=== PATIENT | female | born 1985 | race Caucasian/White ===

== ENCOUNTER → 2016-09-21 | Outpatient (CLI) | payer OTHER ==
[~2016-09-21] MED LIST: ALBUAER2 INH; BCPILLS PO; FLUT1AER4 INH; LAMO1TAB21 PO; SNG10 PO; VENL75CA73 PO
[2016-09-21 16:08] LABS: URINE APPEARANCE CLEAR (CLEAR); URINE BILIRUBIN NEG (NEG); URINE COLOR YELLOW; URINE NITRITE NEG (NEG); URINE SPECIFIC GRAVITY 1.009 (1.000-1.030); UROBILINOGEN NEG (NEG)
[2016-09-21 16:14] LABS: MANUAL MICROSCOPIC REQUIRED? NO; REVIEW REQ? NO
== END | disposition home or self-care (01) ==
LOC: C.LABSPEC 08:55
PROVIDERS: ATTEND Obstetrics & Gynecology
DX: R39.15 Urgency of urination (principal)

== ENCOUNTER → 2016-09-21 | Outpatient (CLI) | payer OTHER | END | disposition home or self-care (01) | LOC: C.PAPS 16:19 | PROVIDERS: ATTEND Obstetrics & Gynecology | DX: Z12.4 Encounter for screening for malignant neoplasm of cervix (principal) ==

== ENCOUNTER 2023-01-18 11:19 | Inpatient (IN) ==
[2023-01-18 13:46] LABS: Appearance Urine Clear (Clear); Blood Urine Negative (Negative); Color Urine Dark Yellow; Epithelial Cell Urine Auto >30 /lpf (0-5); Glucose Urine UA Negative (Negative); Ketones Urine 2+ (Negative); Leukocyte Esterase Urine Negative (Negative); Nitrite Urine Negative (Negative); Protein Urine Trace (Negative); Specific Gravity Urine 1.044 (1.000-1.030); Urobilinogen Urine Negative (Negative)
[2023-01-18 13:47] LABS: Basophils # (auto) 0.04 K/uL (0.00-0.20); Basophils % (auto) 0.4 %; Eosinophils # (auto) 0.07 K/uL (0.00-0.50); Eosinophils % (auto) 0.7 %; Hematocrit (blood only) 39.8 % (37.0-47.0); Hemoglobin 14.1 g/dl (12.0-16.0); Immature Granulocytes # (auto) 0.23 K/uL (0.01-0.20); Immature Granulocytes % (auto) 2.4 %; Lymphocytes # (auto) 1.44 K/uL (1.20-3.40); Lymphocytes % (auto) 15.3 %; Mean Corpuscular Hemoglobin 30.8 pg (25.0-34.0); Mean Corpuscular Hgb Conc 35.4 g/dL (32.0-36.0); Mean Corpuscular Volume 86.9 fL (80.0-100.0); Mean Platelet Volume 10.5 fL (9.4-12.4); Monocytes # (auto) 1.68 K/uL (0.11-0.59); Monocytes % (auto) 17.8 %; Neutrophils # (auto) 5.97 K/uL (1.40-6.50); Neutrophils % (auto) 63.4 %; Platelet Count 403 K/uL (130-400); RDW Coefficient of Variation 11.6 % (11.5-14.5); RDW Standard Deviation 36.8 fL (36.4-46.3); Red Blood Count 4.58 M/uL (4.20-5.40); White Blood Count 9.43 K/ul (4.8-10.8)
[2023-01-18 13:56] LABS: Bilirubin Urine 2+ (Negative)
[2023-01-18 14:06] LABS: Bacteria Urine Automated 1+ (Negative); RBC Urine Automated 0-4 /hpf (0-4)
[2023-01-18 14:06] LABS: Albumin Globulin Ratio 1.4 (0.9-2); Albumin Level 4.4 gm/dl (3.4-5.0); BUN Creatinine Ratio 17.2 (10-20); Bilirubin,Total 0.9 mg/dl (0.2-1.0); Calcium 9.9 mg/dl (8.6-10.3); Creatinine Clr Calc Pharmacy 88.9 ml/min; Est GFR (African American) 90.4 ml/min; Globulin 3.2 gm/dl (2.5-4.0); Total Protein 7.6 gm/dl (6.0-8.3)
[2023-01-18] MEDS ORDERED: SODIUM CHLORIDE 0.9% 2,000 ML IV ONE (16:29)
[2023-01-18] MEDS ORDERED: PANTOprazole 40 MG in SYRINGE 0 ML IV ONE (17:08)
--- NOTE | 2023-01-18 17:10 | Emergency Department Note ---
Impression & Plan SBO (small bowel obstruction), Abdominal pain, Intractable vomiting ED Provider Note HISTORY OF PRESENT ILLNESS: Patient is a 37-year-old female presenting with abdominal pain and intractable vomiting. Patient reports that she has had symptoms ongoing for the last week. She is seen a week ago in the emergency department and found to have enteritis. She reports that her symptoms have been getting worse. She has generalized abdominal pain, but states that the most intense pain is located in the epigastric region. She states that she has multiple episodes of vomiting a day and has been unable to keep anything down. Denies any diarrhea. She denies any measured fevers at home. Denies any recent sick contact exposure. Denies any recent travel. Denies any history of abdominal surgeries. Denies any dysuria or hematuria. ROS: as above PHYSICAL EXAM: Constitutional: Patient appears in no acute distress. HENT: Head: Normocephalic and atraumatic. Eyes: EOMI, PERRL Mouth/Throat: Mucous membranes moist. Neck: Trachea midline. Neck supple. Cardiovascular: RRR, No murmurs, rubs or gallops. Intact distal pulses. Pulmonary/Chest: No respiratory distress. Breath sounds clear and equal bilaterally. No wheezes or rales. Abdominal: Abdomen soft, no rebound or guarding. Generalized tenderness to palpation. Musculoskeletal: No edema, tenderness or deformity noted. Skin: Warm and dry. No rash, erythema, pallor or cyanosis Psychiatric: Appropriate mood and affect for situation. Neurological: Alert and keenly responsive. CN II-XII grossly intact, moving all extremities equally and fully. MDM: - Vitals signs stable. - History obtained via patient. Patient presents with abdominal pain intractable vomiting. Patient reports she has had continued vomiting over the last week. She is seen in the ER last week and noted to have enteritis on her CT scan. She states symptoms over the last week have been getting progressively worse. She has been unable to tolerate oral intake. Denies any diarrhea. Denies any fevers. Denies any history of abdominal surgeries. - Chronic conditions affecting care: none - Differential diagnoses include, but are not limited to: cholecystitis; gastroenteritis; small bowel obstruction; peptic ulcer disease; pancreatitis - Order placed for continuous cardiac monitoring. At this time, monitor showed rate of 90 bpm with normal sinus rhythm, per my interpretation. - External medical records reviewed. Work-up from patient's visit in the emergency department last week was reviewed. - EKG reviewed by myself showed normal sinus rhythm. Rate tachycardic at 101 bpm. QTc 552. No acute ischemic changes. - Laboratory workup interpreted by myself showed normal WBC; hyponatremia (Na 130); hypokalemia (K 3.0); elevated anion gap (13); normal lipase - UA had bacteria present, but no other significant findings to suggest a UTI. - Biofire negative - CT abdomen/pelvis with IV contrast showed closed-loop small bowel obstruction. - Patient given 2L NS, 40 mg IV protonix and 15 mg IV toradol in ER. Given 4 mg IV zofran for nausea - Discussion was had with oncology social work about patient's case and need for admis jessenia - Hospitalist consulted for admission - [facility] and [facility]. ASSESSMENT AND PLAN: Diagnosis: Abdominal pain; intractable vomiting; small bowel obstruction Plan: Admit Past Med/Surg History Medical History (Updated 01/18/23 @ 20:26 by Javy Cohn DO) No pertinent family history No pertinent past medical history Surgical History (Updated 01/13/23 @ 01:29 by Deon Sheldon MD) No pertinent past surgical history Social History Smoking Status: Never smoker Preferred Language: Malagasy Feels Safe at Home: Yes Allergies Allergies Allergy/AdvReac Type Severity Reaction Status Date / Time theophylline Allergy Unknown UNKNOWN Unverified 03/15/16 00:36 Home Meds Home Medications Medication Instructions Recorded Confirmed Albuterol (Ventolin) 2 puff inhalation Q8 PRN 02/19/14 Rescue/Asthma ##0 Control Pills 1 tab PO DAILY #0 tabs 02/19/14 FLUTICASONE PROPIONATE (INHALA 1 puff inhalation BID ##0 02/19/14 (FLOVENT DISKUS) LAMOTRIGINE 100 mg PO DAILY ##0 02/19/14 Montelukast Sod (Montelukast 10 mg PO DAILY ##0 02/19/14 Sodium) VENLAFAXINE HCL (VENLAFAXINE 75 mg PO DAILY ##0 02/19/14 EXTENDED REL) Previous Rx's Medication Instructions Recorded ondansetron 4 mg disintegrating 4 mg PO Q8H PRN nausea and 01/12/23 tablet vomiting #30 tabs Results & Data (ED) Vital Signs Vital Signs - 24 hr 01/18/23 11:31 01/18/23 13:15 01/18/23 16:44 Temperature 36.3 C L Temperature Source Temporal Artery Scan Pulse Rate 110 H 68 Pulse Rate [Apical] 92 H Pulse Rhythm Regular Pulse Rhythm [Apical] Respiratory Rate 18 18 Respiratory Effort / Characteristics Non-Labored Spontaneous Respiratory Depth Normal Respiratory Pattern Regular Blood Pressure 116/78 Blood Pressure [Right Arm] 146/86 H Blood Pressure Mean 90 Blood Pressure Mean [Right Arm] 106 Blood Pressure Position [Right Arm] Pulse Oximetry 95 98 96 Oxygen Delivery Method Room Air Room Air Sepsis Recent Fever Within 48 Hours No Sepsis New/Unexplained Change in Mental Status N/A Sepsis Action Taken by Nursing No Action Required 01/18/23 19:35 Temperature Temperature Source Pulse Rate Pulse Rate [Apical] 90 Pulse Rhythm Pulse Rhythm [Apical] Regular Respiratory Rate 18 Respiratory Effort / Characteristics Non-Labored Spontaneous Respiratory Depth Normal Respiratory Pattern Regular Blood Pressure Blood Pressure [Right Arm] 146/84 H Blood Pressure Mean Blood Pressure Mean [Right Arm] 104 Blood Pressure Position [Right Arm] Lying Pulse Oximetry 99 Oxygen Delivery Method Room Air Sepsis Recent Fever Within 48 Hours Sepsis New/Unexplained Change in Mental Status Sepsis Action Taken by Nursing Laboratory Data 01/18/23 13:15 01/18/23 13:15 Lab Results 01/18/23 01/18/23 01/18/23 Range/Units 13:08 13:15 13:15 WBC 9.43 (4.8-10.8) K/ul RBC 4.58 (4.20-5.40) M/uL Hgb 14.1 (12.0-16.0) g/dl Hct 39.8 (37.0-47.0) % MCV 86.9 (80.0-100.0) fL MCH 30.8 (25.0-34.0) pg MCHC 35.4 (32.0-36.0) g/dL RDW Std Deviation 36.8 (36.4-46.3) fL RDW Coeff of Devin 11.6 (11.5-14.5) % Plt Count 403 H (130-400) K/uL MPV 10.5 (9.4-12.4) fL Immature Gran % (Auto) 2.4 % Neut % (Auto) 63.4 % Lymph % (Auto) 15.3 % [place] % (Auto) 17.8 % Eos % (Auto) 0.7 % Baso % (Auto) 0.4 % Neut # (Auto) 5.97 (1.40-6.50) K/uL Lymph # (Auto) 1.44 (1.20-3.40) K/uL [place] # (Auto) 1.68 H (0.11-0.59) K/uL Eos # (Auto) 0.07 (0.00-0.50) K/uL Baso # (Auto) 0.04 (0.00-0.20) K/uL Immature Gran # (Auto) 0.23 H (0.01-0.20) K/uL Sodium 130 L (136-145) mmol/L Potassium 3.0 L (3.5-5.1) mmol/L Chloride 82 L (98-107) mmol/L Carbon Dioxide 35 H (21-32) mmol/L Anion Gap 13 H (3-11) BUN 16 (6-23) mg/dl Creatinine 0.93 (0.6-1.2) mg/dl Est Cr Clr Drug Dosing 88.9 ml/min Est GFR ( Amer) 90.4 ml/min Est GFR (Non-Af Amer) 78.0 ml/min BUN/Creatinine Ratio 17.2 (10-20) Glucose 105 H (70-99(Fasting)) mg/dl Calcium 9.9 (8.6-10.3) mg/dl Total Bilirubin 0.9 (0.2-1.0) mg/dl AST 20 (13-39) U/L ALT 11 (7-52) U/L Alkaline Phosphatase 89 (34-104) U/L Total Protein 7.6 (6.0-8.3) gm/dl Albumin 4.4 (3.4-5.0) gm/dl Globulin 3.2 (2.5-4.0) gm/dl Albumin/Globulin Ratio 1.4 (0.9-2) Lipase 45 (11-82) U/L Urine Color Dark Yellow Urine Appearance Clear (Clear) Urine pH 5.0 (4.5-7.5) Ur Specific [place] 1.044 H (1.000-1.030) Urine Protein Trace H (Negative) Urine Glucose (UA) Negative (Negative) Urine Ketones 2+ H (Negative) Urine Blood Negative (Negative) Urine Nitrite Negative (Negative) Urine Bilirubin 2+ H (Negative) Urine Urobilinogen Negative (Negative) Ur Leukocyte Esterase Negative (Negative) Urine WBC (Auto) 1-5 (0-5) /hpf Urine RBC (Auto) 0-4 (0-4) /hpf U Hyaline Cast (Auto) 10-30 H (0-5) /lpf U Epithel Cells (Auto) >30 H (0-5) /lpf Urine Bacteria (Auto) 1+ H (Negative) Granular Casts 1-5 H (0) /lpf Urine Yeast Not Reportable Adenovirus (PCR) (NotDetected) B. pertussis DNA (PCR) (NotDetected) B.parapertussis DNA PCR (NotDetected) C. pneumoniae DNA (PCR) (NotDetected) Coronavirus OC43 (PCR) (NotDetected) Coronavirus HKU1 (PCR) (NotDetected) Coronavirus 229E (PCR) (NotDetected) SARS-CoV-2 (PCR) (NotDetected) Coronavirus NL63 (PCR) (NotDetected) Human Metapneumovir PCR (NotDetected) Influenza Type A (PCR) (NotDetected) Influenza Type B (PCR) (NotDetected) M. pneumoniae (PCR) (NotDetected) Parainfluenza 1 (PCR) (NotDetected) Parainfluenza 2 (PCR) (NotDetected) Parainfluenza 3 (PCR) (NotDetected) Parainfluenza 4 (PCR) (NotDetected) RSV (PCR) (NotDetected) Entero/Rhino (PCR) (NotDetected) 01/18/23 Range/Units Unknown WBC (4.8-10.8) K/ul RBC (4.20-5.40) M/uL Hgb (12.0-16.0) g/dl Hct (37.0-47.0) % MCV (80.0-100.0) fL MCH (25.0-34.0) pg MCHC (32.0-36.0) g/dL RDW Std Deviation (36.4-46.3) fL RDW Coeff of Devin (11.5-14.5) % Plt Count (130-400) K/uL MPV (9.4-12.4) fL Immature Gran % (Auto) % Neut % (Auto) % Lymph % (Auto) % [place] % (Auto) % Eos % (Auto) % Baso % (Auto) % Neut # (Auto) (1.40-6.50) K/uL Lymph # (Auto) (1.20-3.40) K/uL [place] # (Auto) (0.11-0.59) K/uL Eos # (Auto) (0.00-0.50) K/uL Baso # (Auto) (0.00-0.20) K/uL Immature Gran # (Auto) (0.01-0.20) K/uL Sodium (136-145) mmol/L Potassium (3.5-5.1) mmol/L Chloride (98-107) mmol/L Carbon Dioxide (21-32) mmol/L Anion Gap (3-11) BUN (6-23) mg/dl Creatinine (0.6-1.2) mg/dl Est Cr Clr Drug Dosing ml/min Est GFR ( Amer) ml/min Est GFR (Non-Af Amer) ml/min BUN/Creatinine Ratio (10-20) Glucose (70-99(Fasting)) mg/dl Calcium (8.6-10.3) mg/dl Total Bilirubin (0.2-1.0) mg/dl AST (13-39) U/L ALT (7-52) U/L Alkaline Phosphatase (34-104) U/L Total Protein (6.0-8.3) gm/dl Albumin (3.4-5.0) gm/dl Globulin (2.5-4.0) gm/dl Albumin/Globulin Ratio (0.9-2) Lipase (11-82) U/L Urine Color Urine Appearance (Clear) Urine pH (4.5-7.5) Ur Specific [place] (1.000-1.030) Urine Protein (Negative) Urine Glucose (UA) (Negative) Urine Ketones (Negative) Urine Blood (Negative) Urine Nitrite (Negative) Urine Bilirubin (Negative) Urine Urobilinogen (Negative) Ur Leukocyte Esterase (Negative) Urine WBC (Auto) (0-5) /hpf Urine RBC (Auto) (0-4) /hpf U Hyaline Cast (Auto) (0-5) /lpf U Epithel Cells (Auto) (0-5) /lpf Urine Bacteria (Auto) (Negative) Granular Casts (0) /lpf Urine Yeast Adenovirus (PCR) Not Detected (NotDetected) B. pertussis DNA (PCR) Not Detected (NotDetected) B.parapertussis DNA PCR Not Detected (NotDetected) C. pneumoniae DNA (PCR) Not Detected (NotDetected) Coronavirus OC43 (PCR) Not Detected (NotDetected) Coronavirus HKU1 (PCR) Not Detected (NotDetected) Coronavirus 229E (PCR) Not Detected (NotDetected) SARS-CoV-2 (PCR) Not Detected (NotDetected) Coronavirus NL63 (PCR) Not Detected (NotDetected) Human Metapneumovir PCR Not Detected (NotDetected) Influenza Type A (PCR) Not Detected (NotDetected) Influenza Type B (PCR) Not Detected (NotDetected) M. pneumoniae (PCR) Not Detected (NotDetected) Parainfluenza 1 (PCR) Not Detected (NotDetected) Parainfluenza 2 (PCR) Not Detected (NotDetected) Parainfluenza 3 (PCR) Not Detected (NotDetected) Parainfluenza 4 (PCR) Not Detected (NotDetected) RSV (PCR) Not Detected (NotDetected) Entero/Rhino (PCR) Not Detected (NotDetected) Administered Medications Discontinued Medications Sodium Chloride (Nss) 2,000 mls @ 999 mls/hr IV .Q2H1M ONE Stop: 01/18/23 18:29 Last Admin: 01/18/23 16:37 Dose: 999 mls/hr Documented By: NRChance Pantoprazole Sodium 40 mg/ (Syringe) 10 mls @ 5 mls/min IV NOW ONE Stop: 01/18/23 17:09 Last Admin: 01/18/23 17:57 Dose: 5 mls/min Documented By: CAROLINE Ioversol (Optiray 320 100ml) 90 ml IV ONCE ONE Stop: 01/18/23 17:41 Last Admin: 01/18/23 17:40 Dose: 90 ml Documented By: CLEMENT Ketorolac Tromethamine (Ketorolac Tromethamine 15 Mg/Ml Vial) 15 mg IV NOW ONE Stop: 01/18/23 19:48 Last Admin: 01/18/23 20:08 Dose: 15 mg Documented By: DAVID Ondansetron HCl (Ondansetron Inj 2 Mg/Ml 2 Ml Vial) 4 mg IV NOW STA Stop: 01/18/23 19:48 Last Admin: 01/18/23 20:09 Dose: 4 mg Documented By: DAVID Imaging Data Radiologist's Impression: Abdomen/Pelvis CT 01/18/23 17:08 CT abd pelvis IV con only CLINICAL HISTORY: abdominal pain; persistent vomiting TECHNIQUE: Helical axial images of the abdomen and pelvis were obtained and displayed. Automated dose lowering techniques and/or adjustment according to patient size were utilized for this exam. This exam was performed with intravenous contrast. CT DOSE: 990.65 mGy.cm COMPARISON: Comparison is made to CT abdomen pelvis 01/12/2023 FINDINGS: Lower chest: No acute abnormality. Liver: Unremarkable. No focal lesions are seen. Gallbladder and biliary tree: No calcified gallstones. Normal caliber wall. No intra- or extrahepatic biliary ductal dilation. Pancreas: Unremarkable, no focal lesions. Spleen: Unremarkable. Adrenals: Unremarkable. Kidneys and ureters: Unremarkable. Bladder: Limited evaluation due to underdistention. Reproductive organs: Unremarkable. Bowel: A hiatal hernia is seen. Numerous dilated loops of small bowel are seen compatible with small bowel obstruction, measuring up to 45 mm in diameter. Proximal and distal transition points are seen. The colon contains moderate stool burden. The appendix is normal. No pneumatosis intestinalis is seen. Lymph nodes Retroperitoneal: Unremarkable. Pelvic: Unremarkable. Mesenteric: Unremarkable. Peritoneum: Moderate free fluid is seen in the pelvis. Vessels: Unremarkable. Abdominal wall: Unremarkable. Bones: Unremarkable. IMPRESSION: Findings are compatible with closed-loop small bowel obstruction. The colon is not entirely under distended. No evidence of pneumatosis intestinalis or other evidence of bowel ischemia. ACT 112: Negative or not required by law. Electronically signed by: Chace Asif M.D. 01/18/2023 6:24 PM Discharge Plan Visit Data Chief Complaint: Abdominal Pain Stated Complaint: VOMITING,ABD PAIN, ED Provider: Vivian Campos Discharge Problem: SBO (small bowel obstruction), Abdominal pain, Intractable vomiting Forms Stand Alone Forms: [facility] Prescriptions Prescriptions: No Action Albuterol (Ventolin) inhaler 2 puff Inhalation Q8 PRN (Reason: Rescue/Asthma) Qty: 0 Control Pills tablet 1 tab PO DAILY Qty: 0 FLUTICASONE PROPIONATE (INHALA (FLOVENT DISKUS) 250 MCG/BLIST AER 1 puff Inhalation BID Qty: 0 LAMOTRIGINE 100 MG tablet 100 mg PO DAILY Qty: 0 Montelukast Sod (Montelukast Sodium) 10 MG tablet 10 mg PO DAILY Qty: 0 VENLAFAXINE HCL (VENLAFAXINE EXTENDED REL) 75 MG capsule 75 mg PO DAILY Qty: 0 ondansetron 4 mg tablet,disintegrating 4 mg PO Q8H PRN (Reason: nausea and vomiting) Qty: 30 0RF Referrals Referrals: Jerry Steinberg DO [Primary Care Provider] -
[2023-01-18] MEDS ORDERED: OPTIRAY 320 100ml IV ONE (17:40)
[2023-01-18 18:11] LABS: Adenovirus PCR Not Detected (NotDetected); Bordetella parapertussis PCR Not Detected (NotDetected); Bordetella pertussis PCR Not Detected (NotDetected); Chlamydia pneumoniae PCR Not Detected (NotDetected); Coronavirus 229E PCR Not Detected (NotDetected); Coronavirus CoV-2 (COVID19)PCR Not Detected (NotDetected); Coronavirus HKU1 PCR Not Detected (NotDetected); Coronavirus NL63 PCR Not Detected (NotDetected); Coronavirus OC43PCR Not Detected (NotDetected); Human Metapneumovirus PCR Not Detected (NotDetected); Influenza A PCR Not Detected (NotDetected); Influenza B PCR Not Detected (NotDetected); Mycoplasma pneumoniae PCR Not Detected (NotDetected); Parainfluenza Virus 1 PCR Not Detected (NotDetected); Parainfluenza Virus 2 PCR Not Detected (NotDetected); Parainfluenza Virus 3 PCR Not Detected (NotDetected); Parainfluenza Virus 4 PCR Not Detected (NotDetected); Respiratory Syncytial VirusPCR Not Detected (NotDetected); Rhinovirus/Enterovirus PCR Not Detected (NotDetected)
--- NOTE | 2023-01-18 18:25 | CT Scan Report ---
CT abd pelvis IV con only CLINICAL HISTORY: abdominal pain; persistent vomiting TECHNIQUE: Helical axial images of the abdomen and pelvis were obtained and displayed. Automated dose lowering techniques and/or adjustment according to patient size were utilized for this exam. This e xam was performed with intravenous contrast. CT DOSE: 990.65 mGy.cm COMPARISON: Comparison is made to CT abdomen pelvis 01/12/2023 FINDINGS: Lower chest: No acute abnormality. Liver: Unremarkable. No focal lesions are seen. Gallbladder and biliary tree: No calcified gallstones. Normal caliber wall. No intra- or extrahepatic biliary ductal dilation. Pancreas: Unremarkable, no focal lesions. Spleen: Unremarkable. Adrenals: Unremarkable. Kidneys and ureters: Unremarkable. Bladder: Limited evaluation due to underdistention. Reproductive organs: Unremarkable. Bowel: A hiatal hernia is seen. Numerous dilated loops of small bowel are seen compatible with small bowel obstruction, measuring up to 45 mm in diameter. Proximal and distal transition points are seen. The colon contains moderate stool burden. The appendix is normal. No pneumatosis intestinalis is see n. Lymph nodes Retroperitoneal: Unremarkable. Pelvic: Unremarkable. Mesenteric: Unremarkable. Peritoneum: Moderate free fluid is seen in the pelvis. Vessels: Unremarkable. Abdominal wall: Unremarkable. Bones: Unremarkable. IMPRESSION: Findings are compatible with closed-loop small bowel obstruction. The colon is not entirely under dis tended. No evidence of pneumatosis intestinalis or other evidence of bowel ischemia. ACT 112: Negative or not required by law. Electronically signed by: Chace Asif M.D. 01/18/2023 6:24 PM
[2023-01-18] MEDS ORDERED: ONDANSETRON INJ 2 MG/ML 2 ML VIAL IV STA (19:47)
[2023-01-18] MEDS ORDERED: KETOROLAC TROMETHAMINE 15 MG/ML VIAL IV ONE (19:47)
[2023-01-18] MEDS ORDERED: KETOROLAC TROMETHAMINE 15 MG/ML VIAL IV PRN (19:47)
--- NOTE | 2023-01-18 20:15 | History & Physical Report ---
Date of Service January 18, 2023 Assessment & Plan (1) SBO (small bowel obstruction): (2) Asymptomatic bacteriuria: (3) Bipolar 1 disorder: (4) Asthma: Plan #SBO CT demonstrates dilated loops of bowel with proximal and distal transition points NG tube placed, low intermittent wall suction NPO IVF, reglan, zofran Tramadol, morphine Surgery consult #Bipolar Dx continue lamictal, venlafaxine #Asymptomatic Bacteriuria No UTI sxs, no treatment indicated #Asthma continue home meds History of Present Illness Chief Complaint: abdominal pain, intractable vomiting Primary Care Provider: Jerry Steinberg, DO 37 yo female PMHx asthma, ?bipolar presents with one week history of intractable nausea, vomiting, and abdominal pain. Pt was evaluated 01/13/23 at [facility] ED for similar symptoms, CT was negative, diagnosed with enteritis and dc with plan to f/u with PCP. Over the past week she has had fluctuating abdominal pain and constant nausea/vomiting. Unable to tolerate anything PO besides some water. Rates abdominal pain at 4/10 at time of exam. Denies fevers, chills, sick contacts, recent travel, history of abdominal surgeries, dysuria, hematuria. Meds allergies reviewed In ED: CT demonstrates SBO with proximal and distal transition points, hiatal hernia, large amount of stool present, no free air or other signs of strangulation or perforation. Hemodynamically stable, afebrile. Received 2L NSS. No leukocytosis. Found to be hyponatremic, hypochloremic, hypokalemic. Allergies Allergy/AdvReac Type Severity Reaction Status Date / Time theophylline Allergy Unknown UNKNOWN Unverified 03/15/16 00:36 Home Medications Medication Instructions Recorded Confirmed Type Albuterol (Ventolin) 2 puff inhalation Q8 PRN 02/19/14 History Rescue/Asthma ##0 Control Pills 1 tab PO DAILY #0 tabs 02/19/14 History FLUTICASONE PROPIONATE (INHALA 1 puff inhalation BID ##0 02/19/14 History (FLOVENT DISKUS) LAMOTRIGINE 100 mg PO DAILY ##0 02/19/14 History Montelukast Sod (Montelukast 10 mg PO DAILY ##0 02/19/14 History Sodium) VENLAFAXINE HCL (VENLAFAXINE 75 mg PO DAILY ##0 11/19/14 History EXTENDED REL) ondansetron 4 mg disintegrating 4 mg PO Q8H PRN nausea and 01/12/23 Rx tablet vomiting #30 tabs Past Med/Surg History Medical History (Updated 01/18/23 @ 20:26 by Javy Cohn DO) No pertinent family history No pertinent past medical history Surgical History (Updated 01/13/23 @ 01:29 by Deon Sheldon MD) No pertinent past surgical history Social History Smoking Status: Never smoker Preferred Language: Tuval[place] Feels Safe at Home: Yes Review of Systems Review of Systems: reviewed, per HPI Physical Exam Physical Exam: General: NAD, non-toxic in appearance, AA&O x 4, answers questions appropriately and follows commands. Skin: warm, dry, intact HEENT: NC/AT, anicteric sclera, conjunctiva without injection, dry membranes, trachea midline Heart: +S1/S2, regular, no m/r/g Lungs: equal air entry bilaterally, no rales/rhonchi/wheezes Abd: +BS, Soft, non distended, TTP throughout, no masses/organomegaly/ascites Ext: warm, no clubbing/cyanosis or edema Neuro: nonfocal, patient AA&O x 4, speech intact, no facial droop, moving all extremities on command. Results & Data Results & Data Vital Signs (Past 12 Hours) Vital Signs Temp Pulse Pulse Resp BP BP Pulse Ox 01/18/23 19:35 90 18 146/84 H 99 01/18/23 16:44 92 H 18 146/86 H 96 01/18/23 13:15 68 98 01/18/23 11:31 36.3 C L 110 H 18 116/78 95 O2 Del Method 01/18/23 19:35 Room Air 01/18/23 16:44 01/18/23 13:15 Room Air 01/18/23 11:31 Room Air Laboratory Results 01/18/23 01/18/23 01/18/23 Range/Units Unknown 13:15 13:15 WBC 9.43 (4.8-10.8) K/ul RBC 4.58 (4.20-5.40) M/uL Hgb 14.1 (12.0-16.0) g/dl Hct 39.8 (37.0-47.0) % MCV 86.9 (80.0-100.0) fL MCH 30.8 (25.0-34.0) pg MCHC 35.4 (32.0-36.0) g/dL RDW Std Deviation 36.8 (36.4-46.3) fL RDW Coeff of Devin 11.6 (11.5-14.5) % Plt Count 403 H (130-400) K/uL MPV 10.5 (9.4-12.4) fL Immature Gran % (Auto) 2.4 % Neut % (Auto) 63.4 % Lymph % (Auto) 15.3 % [place] % (Auto) 17.8 % Eos % (Auto) 0.7 % Baso % (Auto) 0.4 % Neut # (Auto) 5.97 (1.40-6.50) K/uL Lymph # (Auto) 1.44 (1.20-3.40) K/uL [place] # (Auto) 1.68 H (0.11-0.59) K/uL Eos # (Auto) 0.07 (0.00-0.50) K/uL Baso # (Auto) 0.04 (0.00-0.20) K/uL Immature Gran # (Auto) 0.23 H (0.01-0.20) K/uL Sodium 130 L (136-145) mmol/L Potassium 3.0 L (3.5-5.1) mmol/L Chloride 82 L (98-107) mmol/L Carbon Dioxide 35 H (21-32) mmol/L Anion Gap 13 H (3-11) BUN 16 (6-23) mg/dl Creatinine 0.93 (0.6-1.2) mg/dl Est Cr Clr Drug Dosing 88.9 ml/min Est GFR ( Amer) 90.4 ml/min Est GFR (Non-Af Amer) 78.0 ml/min BUN/Creatinine Ratio 17.2 (10-20) Glucose 105 H (70-99(Fasting)) mg/dl Calcium 9.9 (8.6-10.3) mg/dl Total Bilirubin 0.9 (0.2-1.0) mg/dl AST 20 (13-39) U/L ALT 11 (7-52) U/L Alkaline Phosphatase 89 (34-104) U/L Total Protein 7.6 (6.0-8.3) gm/dl Albumin 4.4 (3.4-5.0) gm/dl Globulin 3.2 (2.5-4.0) gm/dl Albumin/Globulin Ratio 1.4 (0.9-2) Lipase 45 (11-82) U/L Urine Color Urine Appearance (Clear) Urine pH (4.5-7.5) Ur Specific [place] (1.000-1.030) Urine Protein (Negative) Urine Glucose (UA) (Negative) Urine Ketones (Negative) Urine Blood (Negative) Urine Nitrite (Negative) Urine Bilirubin (Negative) Urine Urobilinogen (Negative) Ur Leukocyte Esterase (Negative) Urine WBC (Auto) (0-5) /hpf Urine RBC (Auto) (0-4) /hpf U Hyaline Cast (Auto) (0-5) /lpf U Epithel Cells (Auto) (0-5) /lpf Urine Bacteria (Auto) (Negative) Granular Casts (0) /lpf Urine Yeast Adenovirus (PCR) Not Detected (NotDetected) B. pertussis DNA (PCR) Not Detected (NotDetected) B.parapertussis DNA PCR Not Detected (NotDetected) C. pneumoniae DNA (PCR) Not Detected (NotDetected) Coronavirus OC43 (PCR) Not Detected (NotDetected) Coronavirus HKU1 (PCR) Not Detected (NotDetected) Coronavirus 229E (PCR) Not Detected (NotDetected) SARS-CoV-2 (PCR) Not Detected (NotDetected) Coronavirus NL63 (PCR) Not Detected (NotDetected) Human Metapneumovir PCR Not Detected (NotDetected) Influenza Type A (PCR) Not Detected (NotDetected) Influenza Type B (PCR) Not Detected (NotDetected) M. pneumoniae (PCR) Not Detected (NotDetected) Parainfluenza 1 (PCR) Not Detected (NotDetected) Parainfluenza 2 (PCR) Not Detected (NotDetected) Parainfluenza 3 (PCR) Not Detected (NotDetected) Parainfluenza 4 (PCR) Not Detected (NotDetected) RSV (PCR) Not Detected (NotDetected) Entero/Rhino (PCR) Not Detected (NotDetected) 01/18/23 Range/Units 13:08 WBC (4.8-10.8) K/ul RBC (4.20-5.40) M/uL Hgb (12.0-16.0) g/dl Hct (37.0-47.0) % MCV (80.0-100.0) fL MCH (25.0-34.0) pg MCHC (32.0-36.0) g/dL RDW Std Deviation (36.4-46.3) fL RDW Coeff of Devin (11.5-14.5) % Plt Count (130-400) K/uL MPV (9.4-12.4) fL Immature Gran % (Auto) % Neut % (Auto) % Lymph % (Auto) % [place] % (Auto) % Eos % (Auto) % Baso % (Auto) % Neut # (Auto) (1.40-6.50) K/uL Lymph # (Auto) (1.20-3.40) K/uL [place] # (Auto) (0.11-0.59) K/uL Eos # (Auto) (0.00-0.50) K/uL Baso # (Auto) (0.00-0.20) K/uL Immature Gran # (Auto) (0.01-0.20) K/uL Sodium (136-145) mmol/L Potassium (3.5-5.1) mmol/L Chloride (98-107) mmol/L Carbon Dioxide (21-32) mmol/L Anion Gap (3-11) BUN (6-23) mg/dl Creatinine (0.6-1.2) mg/dl Est Cr Clr Drug Dosing ml/min Est GFR ( Amer) ml/min Est GFR (Non-Af Amer) ml/min BUN/Creatinine Ratio (10-20) Glucose (70-99(Fasting)) mg/dl Calcium (8.6-10.3) mg/dl Total Bilirubin (0.2-1.0) mg/dl AST (13-39) U/L ALT (7-52) U/L Alkaline Phosphatase (34-104) U/L Total Protein (6.0-8.3) gm/dl Albumin (3.4-5.0) gm/dl Globulin (2.5-4.0) gm/dl Albumin/Globulin Ratio (0.9-2) Lipase (11-82) U/L Urine Color Dark Yellow Urine Appearance Clear (Clear) Urine pH 5.0 (4.5-7.5) Ur Specific [place] 1.044 H (1.000-1.030) Urine Protein Trace H (Negative) Urine Glucose (UA) Negative (Negative) Urine Ketones 2+ H (Negative) Urine Blood Negative (Negative) Urine Nitrite Negative (Negative) Urine Bilirubin 2+ H (Negative) Urine Urobilinogen Negative (Negative) Ur Leukocyte Esterase Negative (Negative) Urine WBC (Auto) 1-5 (0-5) /hpf Urine RBC (Auto) 0-4 (0-4) /hpf U Hyaline Cast (Auto) 10-30 H (0-5) /lpf U Epithel Cells (Auto) >30 H (0-5) /lpf Urine Bacteria (Auto) 1+ H (Negative) Granular Casts 1-5 H (0) /lpf Urine Yeast Not Reportable Adenovirus (PCR) (NotDetected) B. pertussis DNA (PCR) (NotDetected) B.parapertussis DNA PCR (NotDetected) C. pneumoniae DNA (PCR) (NotDetected) Coronavirus OC43 (PCR) (NotDetected) Coronavirus HKU1 (PCR) (NotDetected) Coronavirus 229E (PCR) (NotDetected) SARS-CoV-2 (PCR) (NotDetected) Coronavirus NL63 (PCR) (NotDetected) Human Metapneumovir PCR (NotDetected) Influenza Type A (PCR) (NotDetected) Influenza Type B (PCR) (NotDetected) M. pneumoniae (PCR) (NotDetected) Parainfluenza 1 (PCR) (NotDetected) Parainfluenza 2 (PCR) (NotDetected) Parainfluenza 3 (PCR) (NotDetected) Parainfluenza 4 (PCR) (NotDetected) RSV (PCR) (NotDetected) Entero/Rhino (PCR) (NotDetected) Diagnostic Findings CT abd pelvis IV con only CLINICAL HISTORY: abdominal pain; persistent vomiting TECHNIQUE: Helical axial images of the abdomen and pelvis were obtained and displayed. Automated dose lowering techniques and/or adjustment according to patient size were utilized for this exam. This exam was performed with intravenous contrast. CT DOSE: 990.65 mGy.cm COMPARISON: Comparison is made to CT abdomen pelvis 01/12/2023 FINDINGS: Lower chest: No acute abnormality. Liver: Unremarkable. No focal lesions are seen. Gallbladder and biliary tree: No calcified gallstones. Normal caliber wall. No intra- or extrahepatic biliary ductal dilation. Pancreas: Unremarkable, no focal lesions. Spleen: Unremarkable. Adrenals: Unremarkable. Kidneys and ureters: Unremarkable. Bladder: Limited evaluation due to underdistention. Reproductive organs: Unremarkable. Bowel: A hiatal hernia is seen. Numerous dilated loops of small bowel are seen compatible with small bowel obstruction, measuring up to 45 mm in diameter. Proximal and distal transition points are seen. The colon contains moderate stool burden. The appendix is normal. No pneumatosis intestinalis is seen. Lymph nodes Retroperitoneal: Unremarkable. Pelvic: Unremarkable. Mesenteric: Unremarkable. Peritoneum: Moderate free fluid is seen in the pelvis. Vessels: Unremarkable. Abdominal wall: Unremarkable. Bones: Unremarkable. IMPRESSION: Findings are compatible with closed-loop small bowel obstruction. The colon is not entirely under distended. No evidence of pneumatosis intestinalis or other evidence of bowel ischemia. ACT 112: Negative or not required by law. Electronically signed by: Chace Asif M.D. 01/18/2023 6:24 PM Dictated:01/18/231815 Transcribed: 01/18/231815 ECG Additional Comments: EKG with sinus tachycardia at 101bpm, normal axis, WK=002, QRS=80, QTc prolonged at 552. large p-waves suggestive of right atrial enlargement, non-specific ST-T wave changes Supervising Physician Co-Signing Physician Notes Patient seen and examined, chart reviewed, case discussed with Dr. Cohn and I agree with the assessment and plan as documented above. In brief, patient is a 37yo female with history of Bipolar and Asthma presenting with one week of intractable nausea, vomiting and abdominal pain. She was seen in the ER on 01/13/[address] of the abdomen which was NEGATIVE. Likely gastroenteritis - discharged home with supportive care. Has been having ongoing abdominal pain. No history of prior SBOs. No prior abdominal surgeries. No personal or family history of inflammatory bowel disease. She reports passing small amount of stool and flatus but is uncertain of when her last episode occurred. NGT placed in the ER In the ER patient is ill in appearance, awake and oriented x 4, answering questions appropriately, ongoing pain and nausea. Mild hypertension otherwise HD stable Skin - intact, no rash HEENT - NC/AT, PERRL, MMM, neck supple Heart - +S1/S2, regular, no m/r/g Lungs - CTA, no rales/rhonchi/wheezes Abd - +BS, diminished, soft, mild distention, diffusely tender to palpation with voluntary guarding, no rebound Ext - warm, well perfused Labs and images reviewed. Significant for mild elevation of platelets at 403 Rt=073, K=3, Cl=82, HCO3=35, AG=13 UA with SG=1.044, 2+ ketones Assessment/Plan -Admit to medical -Keep NPO, NGT to LIWS -Repeat KUB in AM -Continue hydration with LR at 125mL/hr -Morphine as needed for pain -Zofran as needed for nausea -KUB in the morning -General Surgery consultation appreciated -Continue Venlafaxine and Lamictal for history of Bipolar -Continue Fluticasone, Singulair for h/o asthma -Remainder of plan as above Resident Activity Tracking Resident Involvement: Resident Care Provided Care Provided: Adult Hospital Medicine
[2023-01-18] MEDS ORDERED: LIDOCAINE 2% JELLY 5 ML TUBE EXT ONE ×2 (20:32→20:33)
[2023-01-18] MEDS ORDERED: METOCLOPRAMIDE HCL INJ 5 MG/ML 2 ML VIAL ONE (21:03)
[2023-01-18] MEDS: POTASSIUM ACETATE/NSS 10 MEQ/105 ML BAG IV SCH ×2 (21:06→23:24)
[2023-01-18] MEDS ORDERED: METOCLOPRAMIDE HCL INJ 5 MG/ML 2 ML VIAL IV STA (21:06)
[2023-01-18] MEDS ORDERED: LORazepam 2 MG/1 ML VIAL IV STA (21:07)
[2023-01-18] MEDS ORDERED: OXYMETAZOLINE 0.05% 30 ML BTL STA (21:10)
[2023-01-18] MEDS ORDERED: MoRPHine SULFATE 4 MG/ML 1 ML CARP\\VIAL IV PRN ×2 (21:11→23:07)
[2023-01-18] MEDS ORDERED: SODIUM CHLORIDE 0.9% 1,000 ML IV SCH (21:15)
--- NOTE | 2023-01-18 23:35 | Billing Data ---
Date of Service January 18, 2023 Coding Level of Care Code 32029 INT INP/OBS CARE
[2023-01-19] MEDS: LACTATED RINGER'S 1,000 ML IV SCH ×4 (01:11→22:46)
[2023-01-19] MEDS: ONDANSETRON INJ 2 MG/ML 2 ML VIAL IV PRN ×4 (05:33→18:20)
--- NOTE | 2023-01-19 06:31 | Electrocardiogram Report ---
Test Reason : Blood Pressure : / mmHG Vent. Rate : 101 BPM Atrial Rate : 101 BPM P-R Int : 128 ms QRS Dur : 080 ms QT Int : 426 ms P-R-T Axes : 082 076 048 degrees QTc Int : 552 ms Sinus tachycardia Right atrial enlargement Abnormal ECG No previous ECGs available Confirmed by Lenin Rhoades ([id number]) on 01/19/2023 6:30:52 AM Referred By: Confirmed By:Lenin Rhoades
--- NOTE | 2023-01-19 07:18 | Hospitalist Progress Note ---
Date of Service January 19, 2023 Assessment & Plan (1) SBO (small bowel obstruction): (2) Asymptomatic bacteriuria: (3) Bipolar 1 disorder: (4) Asthma: Plan Noreen Rios is a 37 year-old female with a past medical history including asthma, ?bipolar who presents with one week history of intractable nausea, vomiting, and abdominal pain. Patient was previously evaluated on 01/13/23 at [facility] ED for similar symptoms. CT was negative at that time and patient was diagnosed with enteritis and discharged with plan to follow up with PCP. Small Bowel Obstruction -CT (01/18): demonstrates dilated loops of bowel with proximal and distal transition points -NG tube placed, low intermittent wall suction -NPO, IV maintenance fluids (LR @ 125mL/h) -Analgesia with morphine PRN. Zofran for antiemetics. -Surgery consulted, appreciate recommendations -Suspect possible underlying inflammatory etiology leading to SBO -GI consulted, recommend outpatient endoscopy/colonoscopy Hyponatremia, Hypokalemia -Na of 130, Potassium of 3.0 on admission (repleted with 20mEq) -Likely secondary to poor PO intake and ongoing nausea -Monitor with daily BMP Bipolar Disorder -Continue Lamictal, Venlafaxine Asymptomatic Bacteriuria -No UTI sxs, no treatment indicated Asthma -Continue home Fluticasone, Singulair DVT Prophylaxis: Diet: NPO, IVF Code Status: Full Code Dispo: Med/Surg Admission and Anticipated Discharge Date Admission Date: January 18, 2023 Supervising Physician Co-Signing Physician Notes Resident Physician Supervision Note: I independently interviewed and examined the patient and verified the lynn hist ory and physical, reviewed labs and image studies and agree with resident findings and care plan. Subjective Patient seen and examined at bedside. She is fatigued and nauseated, NG tube in place and draining. She denies any prior abdominal surgeries or prior GI diagnoses. Review of Systems Review of Systems: As per above Physical Exam Constitutional: well developed and well nourished Eyes: + anicteric sclerae; no conjunctival abnormality ENMT: Ears: no external ear abnormality Nose: no external nose abnormality Moist mucous membranes. NG tube in place Respiratory: No increased work of breathing or accessory muscle use Cardiovascular: Extremities: no edema Limbs appear well perfused Gastrointestinal (Abdomen): Inspection/Auscultation: abdomen normal to inspection; abdomen not distended Soft, tender to palpation Skin: no rashes, warm and dry Psychiatric: A+Ox3, euthymic affect Results & Data Results & Data Vital Signs (Past 12 Hours) Vital Signs Temp Pulse Pulse Resp BP Pulse Ox O2 Del Method 01/18/23 22:30 Room Air 01/18/23 22:30 36.6 C 106 H 16 136/85 96 Room Air 01/18/23 22:20 Room Air 01/18/23 19:35 90 18 146/84 H 99 Room Air Diagnostic Findings Abdomen/Pelvis CT 01/18/23 17:08 CT abd pelvis IV con only CLINICAL HISTORY: abdominal pain; persistent vomiting TECHNIQUE: Helical axial images of the abdomen and pelvis were obtained and displayed. Automated dose lowering techniques and/or adjustment according to patient size were utilized for this exam. This exam was performed with intravenous contrast. CT DOSE: 990.65 mGy.cm COMPARISON: Comparison is made to CT abdomen pelvis 01/12/2023 FINDINGS: Lower chest: No acute abnormality. Liver: Unremarkable. No focal lesions are seen. Gallbladder and biliary tree: No calcified gallstones. Normal caliber wall. No intra- or extrahepatic biliary ductal dilation. Pancreas: Unremarkable, no focal lesions. Spleen: Unremarkable. Adrenals: Unremarkable. Kidneys and ureters: Unremarkable. Bladder: Limited evaluation due to underdistention. Reproductive organs: Unremarkable. Bowel: A hiatal hernia is seen. Numerous dilated loops of small bowel are seen compatible with small bowel obstruction, measuring up to 45 mm in diameter. Proximal and distal transition points are seen. The colon contains moderate stool burden. The appendix is normal. No pneumatosis intestinalis is seen. Lymph nodes Retroperitoneal: Unremarkable. Pelvic: Unremarkable. Mesenteric: Unremarkable. Peritoneum: Moderate free fluid is seen in the pelvis. Vessels: Unremarkable. Abdominal wall: Unremarkable. Bones: Unremarkable. IMPRESSION: Findings are compatible with closed-loop small bowel obstruction. The colon is not entirely under distended. No evidence of pneumatosis intestinalis or other evidence of bowel ischemia. ACT 112: Negative or not required by law. Electronically signed by: Chace Asif M.D. 01/18/2023 6:24 PM Resident Activity Tracking Resident Involvement: Resident Care Provided Care Provided: Adult [facility] Medicine
--- NOTE | 2023-01-19 07:49 | XRay Report ---
KUB HISTORY: Confirm NG tube placement COMPARISON: Abdomen and pelvis CT 01/18/2023. FINDINGS: The nasogastric tube terminates in the proximal stomach. The fenestrated line terminates at the distal esophagus. This should be advanced by approximately 5 to 10 cm. The lung bases are clear. Dilated gas-filled loops of small bowel persist consistent with the patient's small bowel obstructio n. Contrast is again noted within the urinary system from the recent CT examination. No renal calcul i. No ureteral calculi. No pneumoperitoneum or pneumatosis. IMPRESSION: 1. The nasogastric tube terminates in the proximal stomach. This should be advanced by approximately 5 to 10 cm. 2. Small bowel structure pattern again noted. ACT 112: Negative or not required by law. Electronically signed by: Darwin Ledesma M.D. 01/19/2023 7:48 AM
[2023-01-19 08:20] LABS: Basophils # (auto) 0.05 K/uL (0.00-0.20); Basophils % (auto) 0.4 %; Eosinophils # (auto) 0.04 K/uL (0.00-0.50); Eosinophils % (auto) 0.4 %; Hematocrit (blood only) 34.7 % (37.0-47.0); Hemoglobin 12.1 g/dl (12.0-16.0); Immature Granulocytes # (auto) 0.28 K/uL (0.01-0.20); Immature Granulocytes % (auto) 2.5 %; Lymphocytes # (auto) 1.27 K/uL (1.20-3.40); Lymphocytes % (auto) 11.3 %; Mean Corpuscular Hemoglobin 30.9 pg (25.0-34.0); Mean Corpuscular Hgb Conc 34.9 g/dL (32.0-36.0); Mean Corpuscular Volume 88.5 fL (80.0-100.0); Mean Platelet Volume 10.2 fL (9.4-12.4); Monocytes # (auto) 1.95 K/uL (0.11-0.59); Monocytes % (auto) 17.4 %; Neutrophils # (auto) 7.62 K/uL (1.40-6.50); Platelet Count 316 K/uL (130-400); RDW Coefficient of Variation 11.7 % (11.5-14.5); RDW Standard Deviation 37.2 fL (36.4-46.3); Red Blood Count 3.92 M/uL (4.20-5.40); White Blood Count 11.21 K/ul (4.8-10.8)
--- NOTE | 2023-01-19 08:46 | Surgery Consultation ---
Date of Consultation January 19, 2023 Assessment & Plan (1) SBO (small bowel obstruction): (2) Abdominal pain: Plan 37 year-old female with history of no prior abdominal surgeries or bowel obstructions initially presented to emergency room last week with nausea, vomiting and diarrhea. CT scan at that time showed enteritis. She was having persistent nausea and vomiting at home with decreased oral intake and abdominal pain. repeat CT scan showing SBO with concern for possible closed loop obstruction. Reviewed CT scan images with Dr. Ledesma this morning, looks suspicious for possible inflammatory bowel disease causing SBO vs very bad enteritis. Plan: No acute surgical intervention required at this time Would consult gastroenterology as there may be concern for inflammatory bowel disease as cause of SBO NGT needs advanced per initial and this mornings KUB, advance 10 cm Continue antiemetics and pain management continue medical management will follow along Dr. Mccauley has seen and examined patient, agrees with above. Supervising Physician Co-Signing Physician Notes I have seen and examined the patient directly and agree with the above assessment and plan. Diffuse moderate tenderness to palpation in abdomen. NGT needs to be advanced. Read the scans in Radiology with Dr. Ledesma - does not appear to be closed loop obstruction, but does appear to be obstruction due to distal small bowel enteritis, possible IBD/Crohns. recommend GI consult, medical management. Will continue to follow. History of Present Illness Reason for Consultation: SBO Requesting Physician: Javy Cohn DO Attending Physician: Vanita Vasquez MD History of Present Illness Noreen is a 37 year-old female with history of asthma, bipolar 1 disorder, and asymptomatic bacteriuria who initially presented to ED with complaint of nausea, vomiting, and diarrhea on 01/13/2023 and was found to have enteritis and discharged home. She presented back to emergency department yesterday due to persistent nausea and vomiting with inability to keep anything down with abdominal pain. She had repeat CT scan of abdomen and pelvis which was showing SBO at two points concerning for possible closed loop obstruction. She denies of any recent travels, sick contacts, eating uncooked food, or history of similar symptoms. No prior abdominal surgeries. Denies family history of inflammatory bowel disease. Denies of any history of generalized abdominal pain, diarrhea, changes in bowel habits, or blood in stools. She currently states she is still nauseated and having feculent vomiting. She is passing a little bit of gas. Allergies Allergy/AdvReac Type Severity Reaction Status Date / Time theophylline Allergy Unknown UNKNOWN Unverified 03/15/16 00:36 Home Medications Medication Instructions Recorded Confirmed Type Albuterol (Ventolin) 2 puff inhalation Q8 PRN 02/19/14 History Rescue/Asthma ##0 Control Pills 1 tab PO DAILY #0 tabs 02/19/14 History FLUTICASONE PROPIONATE (INHALA 1 puff inhalation BID ##0 02/19/14 History (FLOVENT DISKUS) LAMOTRIGINE 100 mg PO DAILY ##0 02/19/14 History Montelukast Sod (Montelukast 10 mg PO DAILY ##0 02/19/14 History Sodium) VENLAFAXINE HCL (VENLAFAXINE 75 mg PO DAILY ##0 02/19/14 History EXTENDED REL) ondansetron 4 mg disintegrating 4 mg PO Q8H PRN nausea and 01/12/23 Rx tablet vomiting #30 tabs Patient History Medical History No pertinent family history No pertinent past medical history Surgical History No pertinent past surgical history Social History Smoking Status: Never smoker Hx Alcohol Use: Yes (pt no longer drinks) Hx Substance Use: No Preferred Language: Italian Communication Ability: Effective Pantograph Engraver Required: No Beliefs That Will Affect Care: None Current Living Situation: Spouse Current Living Situation Comment: split level, 15 stairs to upper level Feels Safe at Home: Yes Safety Concerns: Feels Safe At This Time Assistive Devices: None Review of Systems Review of Systems: All systems reviewed & are unremarkable except as noted in HPI & below Physical Exam Constitutional: WD/WN, vitals as above no acute distress, not ill appearing, + uncomfortable and not in distress currently uncomfortable due to nausea and active vomiting Respiratory: normal respiratory effort; no respiratory distress and no labored breathing Gastrointestinal (Abdomen): Inspection/Auscultation: abdomen normal to inspection; abdomen not distended Percussion/Palpation: + abdomen tender (generalized) and abdomen soft; no guarding, abdomen not rigid and abdomen not firm NGT with brown/feculent output Skin: no rashes, warm and dry Psychiatric: Orientation: alert and oriented x 3 Results & Data Vital Signs (Past 12 Hours) Vital Signs Temp Pulse Resp BP Pulse Ox O2 Del Method 01/19/23 07:32 37.0 C 90 17 135/85 96 Room Air 01/18/23 22:30 Room Air 01/18/23 22:30 36.6 C 106 H 16 136/85 96 Room Air 01/18/23 22:20 Room Air Laboratory Results 01/19/23 01/19/23 01/18/23 Range/Units 07:56 07:56 Unknown WBC 11.21 H (4.8-10.8) K/ul RBC 3.92 L (4.20-5.40) M/uL Hgb 12.1 (12.0-16.0) g/dl Hct 34.7 L (37.0-47.0) % MCV 88.5 (80.0-100.0) fL MCH 30.9 (25.0-34.0) pg MCHC 34.9 (32.0-36.0) g/dL RDW Std Deviation 37.2 (36.4-46.3) fL RDW Coeff of Devin 11.7 (11.5-14.5) % Plt Count 316 (130-400) K/uL MPV 10.2 (9.4-12.4) fL Immature Gran % (Auto) 2.5 % Neut % (Auto) 68.0 % Lymph % (Auto) 11.3 % Andrews % (Auto) 17.4 % Eos % (Auto) 0.4 % Baso % (Auto) 0.4 % Neut # (Auto) 7.62 H (1.40-6.50) K/uL Lymph # (Auto) 1.27 (1.20-3.40) K/uL Andrews # (Auto) 1.95 H (0.11-0.59) K/uL Eos # (Auto) 0.04 (0.00-0.50) K/uL Baso # (Auto) 0.05 (0.00-0.20) K/uL Immature Gran # (Auto) 0.28 H (0.01-0.20) K/uL Sodium Pending (136-145) mmol/L Potassium Pending (3.5-5.1) mmol/L Chloride Pending (98-107) mmol/L Carbon Dioxide Pending (21-32) mmol/L Anion Gap Pending (3-11) BUN Pending (6-23) mg/dl Creatinine Pending (0.6-1.2) mg/dl Est Cr Clr Drug Dosing Pending ml/min Est GFR ( Amer) Pending ml/min Est GFR (Non-Af Amer) Pending ml/min BUN/Creatinine Ratio Pending (10-20) Glucose Pending (70-99(Fasting)) mg/dl Calcium Pending (8.6-10.3) mg/dl Total Bilirubin Pending (0.2-1.0) mg/dl AST Pending (13-39) U/L ALT Pending (7-52) U/L Alkaline Phosphatase Pending (34-104) U/L Total Protein Pending (6.0-8.3) gm/dl Albumin Pending (3.4-5.0) gm/dl Globulin Pending (2.5-4.0) gm/dl Albumin/Globulin Ratio Pending (0.9-2) Lipase (11-82) U/L Urine Color Urine Appearance (Clear) Urine pH (4.5-7.5) Ur Specific [place] (1.000-1.030) Urine Protein (Negative) Urine Glucose (UA) (Negative) Urine Ketones (Negative) Urine Blood (Negative) Urine Nitrite (Negative) Urine Bilirubin (Negative) Urine Urobilinogen (Negative) Ur Leukocyte Esterase (Negative) Urine WBC (Auto) (0-5) /hpf Urine RBC (Auto) (0-4) /hpf U Hyaline Cast (Auto) (0-5) /lpf U Epithel Cells (Auto) (0-5) /lpf Urine Bacteria (Auto) (Negative) Granular Casts (0) /lpf Urine Yeast Adenovirus (PCR) Not Detected (NotDetected) B. pertussis DNA (PCR) Not Detected (NotDetected) B.parapertussis DNA PCR Not Detected (NotDetected) C. pneumoniae DNA (PCR) Not Detected (NotDetected) Coronavirus OC43 (PCR) Not Detected (NotDetected) Coronavirus HKU1 (PCR) Not Detected (NotDetected) Coronavirus 229E (PCR) Not Detected (NotDetected) SARS-CoV-2 (PCR) Not Detected (NotDetected) Coronavirus NL63 (PCR) Not Detected (NotDetected) Human Metapneumovir PCR Not Detected (NotDetected) Influenza Type A (PCR) Not Detected (NotDetected) Influenza Type B (PCR) Not Detected (NotDetected) M. pneumoniae (PCR) Not Detected (NotDetected) Parainfluenza 1 (PCR) Not Detected (NotDetected) Parainfluenza 2 (PCR) Not Detected (NotDetected) Parainfluenza 3 (PCR) Not Detected (NotDetected) Parainfluenza 4 (PCR) Not Detected (NotDetected) RSV (PCR) Not Detected (NotDetected) Entero/Rhino (PCR) Not Detected (NotDetected) 01/18/23 01/18/23 01/18/23 Range/Units 13:15 13:15 13:08 WBC 9.43 (4.8-10.8) K/ul RBC 4.58 (4.20-5.40) M/uL Hgb 14.1 (12.0-16.0) g/dl Hct 39.8 (37.0-47.0) % MCV 86.9 (80.0-100.0) fL MCH 30.8 (25.0-34.0) pg MCHC 35.4 (32.0-36.0) g/dL RDW Std Deviation 36.8 (36.4-46.3) fL RDW Coeff of Devin 11.6 (11.5-14.5) % Plt Count 403 H (130-400) K/uL MPV 10.5 (9.4-12.4) fL Immature Gran % (Auto) 2.4 % Neut % (Auto) 63.4 % Lymph % (Auto) 15.3 % Andrews % (Auto) 17.8 % Eos % (Auto) 0.7 % Baso % (Auto) 0.4 % Neut # (Auto) 5.97 (1.40-6.50) K/uL Lymph # (Auto) 1.44 (1.20-3.40) K/uL Andrews # (Auto) 1.68 H (0.11-0.59) K/uL Eos # (Auto) 0.07 (0.00-0.50) K/uL Baso # (Auto) 0.04 (0.00-0.20) K/uL Immature Gran # (Auto) 0.23 H (0.01-0.20) K/uL Sodium 130 L (136-145) mmol/L Potassium 3.0 L (3.5-5.1) mmol/L Chloride 82 L (98-107) mmol/L Carbon Dioxide 35 H (21-32) mmol/L Anion Gap 13 H (3-11) BUN 16 (6-23) mg/dl Creatinine 0.93 (0.6-1.2) mg/dl Est Cr Clr Drug Dosing 88.9 ml/min Est GFR ( Amer) 90.4 ml/min Est GFR (Non-Af Amer) 78.0 ml/min BUN/Creatinine Ratio 17.2 (10-20) Glucose 105 H (70-99(Fasting)) mg/dl Calcium 9.9 (8.6-10.3) mg/dl Total Bilirubin 0.9 (0.2-1.0) mg/dl AST 20 (13-39) U/L ALT 11 (7-52) U/L Alkaline Phosphatase 89 (34-104) U/L Total Protein 7.6 (6.0-8.3) gm/dl Albumin 4.4 (3.4-5.0) gm/dl Globulin 3.2 (2.5-4.0) gm/dl Albumin/Globulin Ratio 1.4 (0.9-2) Lipase 45 (11-82) U/L Urine Color Dark Yellow Urine Appearance Clear (Clear) Urine pH 5.0 (4.5-7.5) Ur Specific [place] 1.044 H (1.000-1.030) Urine Protein Trace H (Negative) Urine Glucose (UA) Negative (Negative) Urine Ketones 2+ H (Negative) Urine Blood Negative (Negative) Urine Nitrite Negative (Negative) Urine Bilirubin 2+ H (Negative) Urine Urobilinogen Negative (Negative) Ur Leukocyte Esterase Negative (Negative) Urine WBC (Auto) 1-5 (0-5) /hpf Urine RBC (Auto) 0-4 (0-4) /hpf U Hyaline Cast (Auto) 10-30 H (0-5) /lpf U Epithel Cells (Auto) >30 H (0-5) /lpf Urine Bacteria (Auto) 1+ H (Negative) Granular Casts 1-5 H (0) /lpf Urine Yeast Not Reportable Adenovirus (PCR) (NotDetected) B. pertussis DNA (PCR) (NotDetected) B.parapertussis DNA PCR (NotDetected) C. pneumoniae DNA (PCR) (NotDetected) Coronavirus OC43 (PCR) (NotDetected) Coronavirus HKU1 (PCR) (NotDetected) Coronavirus 229E (PCR) (NotDetected) SARS-CoV-2 (PCR) (NotDetected) Coronavirus NL63 (PCR) (NotDetected) Human Metapneumovir PCR (NotDetected) Influenza Type A (PCR) (NotDetected) Influenza Type B (PCR) (NotDetected) M. pneumoniae (PCR) (NotDetected) Parainfluenza 1 (PCR) (NotDetected) Parainfluenza 2 (PCR) (NotDetected) Parainfluenza 3 (PCR) (NotDetected) Parainfluenza 4 (PCR) (NotDetected) RSV (PCR) (NotDetected) Entero/Rhino (PCR) (NotDetected) Diagnostic Findings CT abd pelvis IV con only CLINICAL HISTORY: abdominal pain; persistent vomiting TECHNIQUE: Helical axial images of the abdomen and pelvis were obtained and displayed. Automated dose lowering techniques and/or adjustment according to patient size were utilized for this exam. This exam was performed with intravenous contrast. CT DOSE: 990.65 mGy.cm COMPARISON: Comparison is made to CT abdomen pelvis 01/12/2023 FINDINGS: Lower chest: No acute abnormality. Liver: Unremarkable. No focal lesions are seen. Gallbladder and biliary tree: No calcified gallstones. Normal caliber wall. No intra- or extrahepatic biliary ductal dilation. Pancreas: Unremarkable, no focal lesions. Spleen: Unremarkable. Adrenals: Unremarkable. Kidneys and ureters: Unremarkable. Bladder: Limited evaluation due to underdistention. Reproductive organs: Unremarkable. Bowel: A hiatal hernia is seen. Numerous dilated loops of small bowel are seen compatible with small bowel obstruction, measuring up to 45 mm in diameter. Proximal and distal transition points are seen. The colon contains moderate stool burden. The appendix is normal. No pneumatosis intestinalis is seen. Lymph nodes Retroperitoneal: Unremarkable. Pelvic: Unremarkable. Mesenteric: Unremarkable. Peritoneum: Moderate free fluid is seen in the pelvis. Vessels: Unremarkable. Abdominal wall: Unremarkable. Bones: Unremarkable. IMPRESSION: Findings are compatible with closed-loop small bowel obstruction. The colon is not entirely under distended. No evidence of pneumatosis intestinalis or other evidence of bowel ischemia. (2) Abdominal pain Abdominal location: unspecified location Qualified Code(s): R10.9 - Unspecified abdominal pain
[2023-01-19] MEDS ORDERED: INFLUENZA VIRUS QUADRIVALENT VACCINE (IIV4) 0.5 ML SYR IM ONE (09:00)
[2023-01-19 09:01] LABS: Albumin Globulin Ratio 1.6 (0.9-2); Albumin Level 3.6 gm/dl (3.4-5.0); Bilirubin,Total 0.6 mg/dl (0.2-1.0); Calcium 8.4 mg/dl (8.6-10.3); Creatinine Clr Calc Pharmacy 133.1 ml/min; Est GFR (African American) 131.9 ml/min; Est GFR (Non-African American) 113.8 ml/min; Globulin 2.2 gm/dl (2.5-4.0); Potassium 3.4 mmol/L (3.5-5.1); Total Protein 5.8 gm/dl (6.0-8.3)
--- NOTE | 2023-01-19 10:19 | Gastrointestinal Consultation ---
Date of Consultation January 19, 2023 Assessment & Plan (1) Abdominal pain: (2) SBO (small bowel obstruction): Plan Patient is a 37 y.o. female with a history of viral gastroenteritis admitted with abdominal pain and feculent emesis and CT consistent with small bowel obstruction. -NPO with NG to LIW suction. -Recommendations per general surgery. -Outpatient EGD and colonoscopy to exclude any underlying GI pathology. -Continue supportive care. Thank you for allowing us to participate in the care of this patient. If you have any questions or concerns, please do not hesitate to contact us. Supervising Physician Co-Signing Physician Notes I saw the patient and agree with the findings as documented by KRISH Borges History of Present Illness Reason for Consultation: SBO Requesting Physician: Dr. Vasquez Attending Physician: Vanita Vasquez MD History of Present Illness Patient is a 37 y.o. female with a history of asthma, bipolar disorder and recent ER visit for gastroenteritis admitted with intractable nausea with vomiting, feculent in nature and severe abdominal pain/distention. CT imaging obtained consistent with a small bowel obstruction with transition points of both proximal and distal bowel, measuring 45 mm. She has been made NPO with NG insertion to LIW suction. Since placement, she reports improved abdominal pain and bloating. Did have a liquid brown emesis approximately one hour ago. States she is passing flatus but no bms. No f/c. Denies any history of NSAID use. No family history of IBD. No prior abdominal surgeries. General surgery has been consulted as well. Allergies Allergy/AdvReac Type Severity Reaction Status Date / Time theophylline Allergy Unknown UNKNOWN Unverified 03/15/16 00:36 Home Medications Medication Instructions Recorded Confirmed Type Albuterol (Ventolin) 2 puff inhalation Q8 PRN 02/19/14 History Rescue/Asthma ##0 Control Pills 1 tab PO DAILY #0 tabs 02/19/14 History FLUTICASONE PROPIONATE (INHALA 1 puff inhalation BID ##0 02/19/14 History (FLOVENT DISKUS) LAMOTRIGINE 100 mg PO DAILY ##0 02/19/14 History Montelukast Sod (Montelukast 10 mg PO DAILY ##0 02/19/14 History Sodium) VENLAFAXINE HCL (VENLAFAXINE 75 mg PO DAILY ##0 02/19/14 History EXTENDED REL) ondansetron 4 mg disintegrating 4 mg PO Q8H PRN nausea and 01/12/23 Rx tablet vomiting #30 tabs Patient History Medical History No pertinent family history No pertinent past medical history Surgical History No pertinent past surgical history Social History Smoking Status: Never smoker Hx Alcohol Use: Yes (pt no longer drinks) Hx Substance Use: No Preferred Language: Hong Konger Communication Ability: Effective Cargo Service Agent Required: No Beliefs That Will Affect Care: None Current Living Situation: Spouse Current Living Situation Comment: split level, 15 stairs to upper level Feels Safe at Home: Yes Safety Concerns: Feels Safe At This Time Assistive Devices: None Review of Systems Constitutional: as per Subjective / HPI Respiratory: no problem reported Cardiovascular: no problem reported Gastrointestinal: as per Subjective / HPI Physical Exam Constitutional: WD/WN, vitals as above Eyes: EOM intact bilaterally Respiratory: normal respiratory effort, lungs clear to auscultation Cardiovascular: Rate/Rhythm: regular rate and regular rhythm Heart Sounds: no gallop and no murmur Gastrointestinal (Abdomen): Inspection/Auscultation: + abdomen distended and + hypoactive bowel sounds Percussion/Palpation: + abdomen tender and abdomen soft; no guarding and abdomen not rigid Musculoskeletal: Extremities: no cyanosis no lower extremity edema Skin: no rashes, warm and dry Neurologic: moves all extremities Psychiatric: A+Ox3, euthymic affect Results & Data Vital Signs (Past 12 Hours) Vital Signs Temp Pulse Resp BP Pulse Ox O2 Del Method 01/19/23 07:32 37.0 C 90 17 135/85 96 Room Air 01/18/23 22:30 Room Air 01/18/23 22:30 36.6 C 106 H 16 136/85 96 Room Air 01/18/23 22:20 Room Air Diagnostic Findings Laboratory Results WBC 11.21 K/ul (4.8-10.8) H 01/19/23 07:56 RBC 3.92 M/uL (4.20-5.40) L 01/19/23 07:56 Hgb 12.1 g/dl (12.0-16.0) 01/19/23 07:56 Hct 34.7 % (37.0-47.0) L 01/19/23 07:56 MCV 88.5 fL (80.0-100.0) 01/19/23 07:56 MCH 30.9 pg (25.0-34.0) 01/19/23 07:56 MCHC 34.9 g/dL (32.0-36.0) 01/19/23 07:56 RDW Std Deviation 37.2 fL (36.4-46.3) 01/19/23 07:56 RDW Coeff of Devin 11.7 % (11.5-14.5) 01/19/23 07:56 Plt Count 316 K/uL (130-400) 01/19/23 07:56 MPV 10.2 fL (9.4-12.4) 01/19/23 07:56 Immature Gran % (Auto) 2.5 % 01/19/23 07:56 Neut % (Auto) 68.0 % 01/19/23 07:56 Lymph % (Auto) 11.3 % 01/19/23 07:56 [place] % (Auto) 17.4 % 01/19/23 07:56 Eos % (Auto) 0.4 % 01/19/23 07:56 Baso % (Auto) 0.4 % 01/19/23 07:56 Neut # (Auto) 7.62 K/uL (1.40-6.50) H 01/19/23 07:56 Lymph # (Auto) 1.27 K/uL (1.20-3.40) 01/19/23 07:56 [place] # (Auto) 1.95 K/uL (0.11-0.59) H 01/19/23 07:56 Eos # (Auto) 0.04 K/uL (0.00-0.50) 01/19/23 07:56 Baso # (Auto) 0.05 K/uL (0.00-0.20) 01/19/23 07:56 Immature Gran # (Auto) 0.28 K/uL (0.01-0.20) H 01/19/23 07:56 Sodium 135 mmol/L (136-145) L 01/19/23 07:56 Potassium 3.4 mmol/L (3.5-5.1) L 01/19/23 07:56 Chloride 94 mmol/L (98-107) L 01/19/23 07:56 Carbon Dioxide 31 mmol/L (21-32) 01/19/23 07:56 Anion Gap 10 (3-11) 01/19/23 07:56 BUN 12 mg/dl (6-23) 01/19/23 07:56 Creatinine 0.63 mg/dl (0.6-1.2) D 01/19/23 07:56 Est Cr Clr Drug Dosing 133.1 ml/min 01/19/23 07:56 Est GFR ( Amer) 131.9 ml/min 01/19/23 07:56 Est GFR (Non-Af Amer) 113.8 ml/min 01/19/23 07:56 BUN/Creatinine Ratio 19.0 (10-20) 01/19/23 07:56 Glucose 96 mg/dl (70-99(Fasting)) 01/19/23 07:56 Calcium 8.4 mg/dl (8.6-10.3) L 01/19/23 07:56 Total Bilirubin 0.6 mg/dl (0.2-1.0) 01/19/23 07:56 AST 30 U/L (13-39) 01/19/23 07:56 ALT 20 U/L (7-52) 01/19/23 07:56 Alkaline Phosphatase 66 U/L (34-104) 01/19/23 07:56 Total Protein 5.8 gm/dl (6.0-8.3) L D 01/19/23 07:56 Albumin 3.6 gm/dl (3.4-5.0) 01/19/23 07:56 Globulin 2.2 gm/dl (2.5-4.0) L 01/19/23 07:56 Albumin/Globulin Ratio 1.6 (0.9-2) 01/19/23 07:56 Lipase 45 U/L (11-82) 01/18/23 13:15 Urine Color Dark Yellow 01/18/23 13:08 Urine Appearance Clear (Clear) 01/18/23 13:08 Urine pH 5.0 (4.5-7.5) 01/18/23 13:08 Ur Specific [place] 1.044 (1.000-1.030) H 01/18/23 13:08 Urine Protein Trace (Negative) H 01/18/23 13:08 Urine Glucose (UA) Negative (Negative) 01/18/23 13:08 Urine Ketones 2+ (Negative) H 01/18/23 13:08 Urine Blood Negative (Negative) 01/18/23 13:08 Urine Nitrite Negative (Negative) 01/18/23 13:08 Urine Bilirubin 2+ (Negative) H 01/18/23 13:08 Urine Urobilinogen Negative (Negative) 01/18/23 13:08 Ur Leukocyte Esterase Negative (Negative) 01/18/23 13:08 Urine WBC (Auto) 1-5 /hpf (0-5) 01/18/23 13:08 Urine RBC (Auto) 0-4 /hpf (0-4) 01/18/23 13:08 U Hyaline Cast (Auto) 10-30 /lpf (0-5) H 01/18/23 13:08 U Epithel Cells (Auto) >30 /lpf (0-5) H 01/18/23 13:08 Urine Bacteria (Auto) 1+ (Negative) H 01/18/23 13:08 Granular Casts 1-5 /lpf (0) H 01/18/23 13:08 Urine Yeast Not Reportable 01/18/23 13:08 Adenovirus (PCR) Not Detected (NotDetected) 01/18/23 Unknown B. pertussis DNA (PCR) Not Detected (NotDetected) 01/18/23 Unknown B.parapertussis DNA PCR Not Detected (NotDetected) 01/18/23 Unknown C. pneumoniae DNA (PCR) Not Detected (NotDetected) 01/18/23 Unknown Coronavirus OC43 (PCR) Not Detected (NotDetected) 01/18/23 Unknown Coronavirus HKU1 (PCR) Not Detected (NotDetected) 01/18/23 Unknown Coronavirus 229E (PCR) Not Detected (NotDetected) 01/18/23 Unknown SARS-CoV-2 (PCR) Not Detected (NotDetected) 01/18/23 Unknown Coronavirus NL63 (PCR) Not Detected (NotDetected) 01/18/23 Unknown Human Metapneumovir PCR Not Detected (NotDetected) 01/18/23 Unknown Influenza Type A (PCR) Not Detected (NotDetected) 01/18/23 Unknown Influenza Type B (PCR) Not Detected (NotDetected) 01/18/23 Unknown M. pneumoniae (PCR) Not Detected (NotDetected) 01/18/23 Unknown Parainfluenza 1 (PCR) Not Detected (NotDetected) 01/18/23 Unknown Parainfluenza 2 (PCR) Not Detected (NotDetected) 01/18/23 Unknown Parainfluenza 3 (PCR) Not Detected (NotDetected) 01/18/23 Unknown Parainfluenza 4 (PCR) Not Detected (NotDetected) 01/18/23 Unknown RSV (PCR) Not Detected (NotDetected) 01/18/23 Unknown Entero/Rhino (PCR) Not Detected (NotDetected) 01/18/23 Unknown Impressions Abdomen/Pelvis CT 01/18/23 17:08 CT abd pelvis IV con only CLINICAL HISTORY: abdominal pain; persistent vomiting TECHNIQUE: Helical axial images of the abdomen and pelvis were obtained and displayed. Automated dose lowering techniques and/or adjustment according to patient size were utilized for this exam. This exam was performed with intravenous contrast. CT DOSE: 990.65 mGy.cm COMPARISON: Comparison is made to CT abdomen pelvis 01/12/2023 FINDINGS: Lower chest: No acute abnormality. Liver: Unremarkable. No focal lesions are seen. Gallbladder and biliary tree: No calcified gallstones. Normal caliber wall. No intra- or extrahepatic biliary ductal dilation. Pancreas: Unremarkable, no focal lesions. Spleen: Unremarkable. Adrenals: Unremarkable. Kidneys and ureters: Unremarkable. Bladder: Limited evaluation due to underdistention. Reproductive organs: Unremarkable. Bowel: A hiatal hernia is seen. Numerous dilated loops of small bowel are seen compatible with small bowel obstruction, measuring up to 45 mm in diameter. Proximal and distal transition points are seen. The colon contains moderate stool burden. The appendix is normal. No pneumatosis intestinalis is seen. Lymph nodes Retroperitoneal: Unremarkable. Pelvic: Unremarkable. Mesenteric: Unremarkable. Peritoneum: Moderate free fluid is seen in the pelvis. Vessels: Unremarkable. Abdominal wall: Unremarkable. Bones: Unremarkable. IMPRESSION: Findings are compatible with closed-loop small bowel obstruction. The colon is not entirely under distended. No evidence of pneumatosis intestinalis or other evidence of bowel ischemia. ACT 112: Negative or not required by law. Electronically signed by: Chace Asif M.D. 01/18/2023 6:24 PM PG Care Time/CCT Total # of Minutes Spent Total Time Spent with Patient: Total time spent is greater than 50% in coordination of care (as documented) at patient's floor/unit and/or counseling patient: Coding Level of Care Code 19905 IN/OBS CONSULT LVL 4,60M Diagnoses Abdominal pain R10.9 Abdominal location: unspecified location SBO (small bowel obstruction) K56.609 (1) Abdominal pain Abdominal location: unspecified location Qualified Code(s): R10.9 - Unspecified abdominal pain
[2023-01-19] MEDS: FLUTICASONE FUROATE 200MCG 14 PUFFS/INHALER INH SCH (11:03)
[2023-01-19] MEDS: MONTELUKAST SODIUM 10 MG TABLET PO SCH (11:03)
[2023-01-19] MEDS: lamoTRIgine 100 MG TAB PO SCH (11:03)
[2023-01-19] MEDS: VENLAFAXINE HCL XR 75 MG CAPXR PO SCH (11:03)
--- NOTE | 2023-01-19 11:21 | XRay Report ---
KUB HISTORY: Status post placement of an enteric tube recheck NGT placement after advancement 10 cm COMPARISON: KUB 01/19/2023 at 9:01 AM, CT 01/18/2023 FINDINGS: Persistent small bowel obstruction with dilated air-filled loops of small bowel measuring u p to 4.9 cm. Distal tip of enteric tube projects over the expected location of the distal stomach. Mo derate fecal retention of the right hemicolon. No renal calculi. No ureteral calculi. No pneumoperit oneum or pneumatosis. No fracture. IMPRESSION: 1. Distal tip of enteric tube projects over the expected location of the distal stomach. 2. Persistent high-grade small bowel obstruction. ACT 112: Negative or not required by law. The above report was generated using voice recognition software. It may contain grammatical, syntax o r spelling errors. Electronically signed by: Sina Bailey M.D. 01/19/2023 11:19 AM
--- NOTE | 2023-01-19 12:40 | XRay Report ---
KUB HISTORY: Small bowel obstruction. COMPARISON: KUB 01/18/2023. FINDINGS: Nasogastric tube terminates in the proximal stomach. The fenestrated line is at the distal esophagus. This remains unchanged and should be advanced by approximately 5 cm. Dilated gas-filled lo ops of small bowel persist consistent the patient's known small bowel obstruction.. No renal calculi . No ureteral calculi. No pneumoperitoneum or pneumatosis. IMPRESSION: 1. No change in the small bowel obstruction pattern. 2. Nasogastric tube terminates in the proximal stomach. This should be advanced by approximately 5 cm . ACT 112: Negative or not required by law. Electronically signed by: Darwin Ledesma M.D. 01/19/2023 12:38 PM
[2023-01-19] MEDS ORDERED: PROCHLORPERAZINE 5 MG in SYRINGE 4 ML IV PRN (15:51)
[2023-01-19] MEDS: ACETAMINOPHEN 1,000 MG/100 ML VIAL IV PRN (18:19)
[2023-01-19] MEDS: POTASSIUM CHLORIDE / WTR 10 MEQ/100 ML PLCT IV SCH ×3 (19:22→21:41)
--- NOTE | 2023-01-20 05:32 | Surgery Progress Note ---
Date of Service January 20, 2023 Assessment & Plan (1) SBO (small bowel obstruction): Plan HD #2 SBO secondary to gastroenteritis/inflammatory bowel disease? Improving. Positive bowel movement today Continue NG tube for now Discussed gastroenteritis/inflammatory bowel disease with GI Continue IV fluid hydration Out of bed ambulation No urgent surgical needs at this time Admission and Anticipated Discharge Date Admission Date: January 18, 2023 Subjective She is doing much better today. No nausea or abdominal pain. She did have a bowel movement. Continues with NG tube. No fevers. Physical Exam Physical Exam: AFVSS NAD, A&O x3 Abdomen: Soft, nontender, mild distention NG tube in place Results & Data Vital Signs (Past 12 Hours) Vital Signs Temp Pulse Resp BP Pulse Ox O2 Del Method 01/19/23 20:50 37.1 C 89 17 133/87 95 Room Air Laboratory Results 01/19/23 01/19/23 Range/Units 07:56 07:56 WBC 11.21 H (4.8-10.8) K/ul RBC 3.92 L (4.20-5.40) M/uL Hgb 12.1 (12.0-16.0) g/dl Hct 34.7 L (37.0-47.0) % MCV 88.5 (80.0-100.0) fL MCH 30.9 (25.0-34.0) pg MCHC 34.9 (32.0-36.0) g/dL RDW Std Deviation 37.2 (36.4-46.3) fL RDW Coeff of Devin 11.7 (11.5-14.5) % Plt Count 316 (130-400) K/uL MPV 10.2 (9.4-12.4) fL Immature Gran % (Auto) 2.5 % Neut % (Auto) 68.0 % Lymph % (Auto) 11.3 % Conway % (Auto) 17.4 % Eos % (Auto) 0.4 % Baso % (Auto) 0.4 % Neut # (Auto) 7.62 H (1.40-6.50) K/uL Lymph # (Auto) 1.27 (1.20-3.40) K/uL Conway # (Auto) 1.95 H (0.11-0.59) K/uL Eos # (Auto) 0.04 (0.00-0.50) K/uL Baso # (Auto) 0.05 (0.00-0.20) K/uL Immature Gran # (Auto) 0.28 H (0.01-0.20) K/uL Sodium 135 L (136-145) mmol/L Potassium 3.4 L (3.5-5.1) mmol/L Chloride 94 L (98-107) mmol/L Carbon Dioxide 31 (21-32) mmol/L Anion Gap 10 (3-11) BUN 12 (6-23) mg/dl Creatinine 0.63 D (0.6-1.2) mg/dl Est Cr Clr Drug Dosing 133.1 ml/min Est GFR ( Amer) 131.9 ml/min Est GFR (Non-Af Amer) 113.8 ml/min BUN/Creatinine Ratio 19.0 (10-20) Glucose 96 (70-99(Fasting)) mg/dl Calcium 8.4 L (8.6-10.3) mg/dl Total Bilirubin 0.6 (0.2-1.0) mg/dl AST 30 (13-39) U/L ALT 20 (7-52) U/L Alkaline Phosphatase 66 (34-104) U/L Total Protein 5.8 L D (6.0-8.3) gm/dl Albumin 3.6 (3.4-5.0) gm/dl Globulin 2.2 L (2.5-4.0) gm/dl Albumin/Globulin Ratio 1.6 (0.9-2)
[2023-01-20] MEDS: LACTATED RINGER'S 1,000 ML IV SCH ×3 (05:42→20:54)
--- NOTE | 2023-01-20 07:46 | Hospitalist Progress Note ---
Date of Service January 20, 2023 Assessment & Plan (1) SBO (small bowel obstruction): (2) Asymptomatic bacteriuria: (3) Bipolar 1 disorder: (4) Asthma: Plan Noreen Rios is a 37 year-old female with a past medical history including asthma, ?bipolar who presents with one week history of intractable nausea, vomiting, and abdominal pain. Patient was previously evaluated on 01/13/23 at [facility] ED for similar symptoms. CT was negative at that time and patient was diagnosed with enteritis and discharged with plan to follow up with PCP. Small Bowel Obstruction -CT (01/18): demonstrates dilated loops of bowel with proximal and distal transition points -NG tube in place, low intermittent wall suction -NPO, IV maintenance fluids (LR @ 125mL/h) -Analgesia with morphine PRN. Zofran for antiemetics. -Surgery - Moving bowels; continue NGT, NPO, IVF -Suspect possible underlying inflammatory etiology leading to SBO -GI consulted, recommend outpatient endoscopy/colonoscopy -Started IV solumedrol today Hyponatremia, Hypokalemia -Na of 130, Potassium of 3.0 on admission -Likely secondary to poor PO intake and ongoing nausea -Monitor with daily BMP and replete as indicated Bipolar Disorder -Continue Lamictal, Venlafaxine Asymptomatic Bacteriuria -No UTI sxs, no treatment indicated Asthma -Continue home Fluticasone, Singulair DVT Prophylaxis: Ambulation FEN: Replaced K, Monitor Na, NPO, IVF, NGT - 1350ml in last 24hrs Admission and Anticipated Discharge Date Admission Date: January 18, 2023 Supervising Physician Co-Signing Physician Notes Resident Physician Supervision Note: I independently interviewed and examined the patient and verified the lynn history and physical, reviewed labs and image studies and agree with resident findings and care plan. Subjective Patient seen and examined at bedside. She notes some improvement in her abdominal pain and nausea today. Endorses passing gas and had a bowel movement yesterday. Review of Systems Review of Systems: As per above Physical Exam Constitutional: well developed and well nourished Eyes: + anicteric sclerae; no conjunctival abnormality ENMT: Ears: no external ear abnormality Nose: no external nose abnormality Respiratory: normal respiratory effort, lungs clear to auscultation Cardiovascular: Extremities: no edema Gastrointestinal (Abdomen): Inspection/Auscultation: abdomen normal to inspection; abdomen not distended Percussion/Palpation: abdomen soft; abdomen nontender Skin: no rashes, warm and dry Psychiatric: A+Ox3, euthymic affect Results & Data Results & Data Vital Signs (Past 12 Hours) Vital Signs Temp Pulse Resp BP Pulse Ox O2 Del Method 01/20/23 07:20 37.6 C H 77 16 130/84 95 Room Air 01/19/23 20:50 37.1 C 89 17 133/87 95 Room Air Resident Activity Tracking Resident Involvement: Resident Care Provided Care Provided: Adult Hospital Medicine
[2023-01-20 07:49] LABS: Basophils # (auto) 0.06 K/uL (0.00-0.20); Basophils % (auto) 0.5 %; Eosinophils # (auto) 0.06 K/uL (0.00-0.50); Eosinophils % (auto) 0.5 %; Hematocrit (blood only) 32.2 % (37.0-47.0); Hemoglobin 10.9 g/dl (12.0-16.0); Immature Granulocytes # (auto) 0.28 K/uL (0.01-0.20); Immature Granulocytes % (auto) 2.4 %; Lymphocytes # (auto) 1.72 K/uL (1.20-3.40); Mean Corpuscular Hemoglobin 30.5 pg (25.0-34.0); Mean Corpuscular Hgb Conc 33.9 g/dL (32.0-36.0); Mean Corpuscular Volume 90.2 fL (80.0-100.0); Mean Platelet Volume 10.1 fL (9.4-12.4); Monocytes # (auto) 1.67 K/uL (0.11-0.59); Monocytes % (auto) 14.6 %; Neutrophils # (auto) 7.65 K/uL (1.40-6.50); Platelet Count 305 K/uL (130-400); RDW Coefficient of Variation 11.5 % (11.5-14.5); RDW Standard Deviation 38.1 fL (36.4-46.3); Red Blood Count 3.57 M/uL (4.20-5.40); White Blood Count 11.44 K/ul (4.8-10.8)
[2023-01-20 08:09] LABS: Calcium 7.8 mg/dl (8.6-10.3); Potassium 3.3 mmol/L (3.5-5.1)
[2023-01-20 08:14] LABS: BUN Creatinine Ratio 23.3 (10-20); Est GFR (African American) 149.5 ml/min
[2023-01-20] MEDS: FLUTICASONE FUROATE 200MCG 14 PUFFS/INHALER INH SCH (09:18)
[2023-01-20] MEDS: MONTELUKAST SODIUM 10 MG TABLET PO SCH (09:19)
[2023-01-20] MEDS: lamoTRIgine 100 MG TAB PO SCH (09:19)
[2023-01-20] MEDS: VENLAFAXINE HCL XR 75 MG CAPXR PO SCH (09:19)
--- NOTE | 2023-01-20 12:01 | Gastroenterology Progress Note ---
Date of Service January 20, 2023 Assessment & Plan (1) Abdominal pain: (2) SBO (small bowel obstruction): Plan Patient is a 37 y.o. female with a history of viral gastroenteritis admitted with abdominal pain and feculent emesis and CT consistent with small bowel obstruction. -NPO with NG to LIW suction. -Agree with surgery. Will start Solu-Medrol 40 mg IV BID, then on a tapered dose schedule. -Outpatient EGD and colonoscopy to exclude any underlying GI pathology. -Continue supportive care. Thank you for allowing us to participate in the care of this patient. If you have any questions or concerns, please do not hesitate to contact us. Admission and Anticipated Discharge Date Admission Date: January 18, 2023 Subjective Patient reports improved abdominal pain. No nausea or vomiting. Patient reports passing flatus and did have a small bm this morning. Continues NPO with NG with LIW suction. General surgery questions utility of corticosteroids due to severe obstruction. Review of Systems Constitutional: no fever and no chills Gastrointestinal: as per Subjective / HPI Physical Exam Constitutional: WD/WN, vitals as above Respiratory: normal respiratory effort, lungs clear to auscultation Cardiovascular: RRR, no murmur, no edema Gastrointestinal (Abdomen): Inspection/Auscultation: + abdomen distended and + hypoactive bowel sounds Percussion/Palpation: abdomen soft; abdomen nontender, no guarding and abdomen not rigid Psychiatric: A+Ox3, euthymic affect Results & Data Results & Data Vital Signs (Past 12 Hours) Vital Signs Temp Pulse Resp BP Pulse Ox O2 Del Method 01/20/23 07:20 37.6 C H 77 16 130/84 95 Room Air Diagnostic Findings Laboratory Results WBC 11.44 K/ul (4.8-10.8) H 01/20/23 07:16 RBC 3.57 M/uL (4.20-5.40) L 01/20/23 07:16 Hgb 10.9 g/dl (12.0-16.0) L 01/20/23 07:16 Hct 32.2 % (37.0-47.0) L 01/20/23 07:16 MCV 90.2 fL (80.0-100.0) 01/20/23 07:16 MCH 30.5 pg (25.0-34.0) 01/20/23 07:16 MCHC 33.9 g/dL (32.0-36.0) 01/20/23 07:16 RDW Std Deviation 38.1 fL (36.4-46.3) 01/20/23 07:16 RDW Coeff of Devin 11.5 % (11.5-14.5) 01/20/23 07:16 Plt Count 305 K/uL (130-400) 01/20/23 07:16 MPV 10.1 fL (9.4-12.4) 01/20/23 07:16 Immature Gran % (Auto) 2.4 % 01/20/23 07:16 Neut % (Auto) 67.0 % 01/20/23 07:16 Lymph % (Auto) 15.0 % 01/20/23 07:16 Starke % (Auto) 14.6 % 01/20/23 07:16 Eos % (Auto) 0.5 % 01/20/23 07:16 Baso % (Auto) 0.5 % 01/20/23 07:16 Neut # (Auto) 7.65 K/uL (1.40-6.50) H 01/20/23 07:16 Lymph # (Auto) 1.72 K/uL (1.20-3.40) 01/20/23 07:16 Starke # (Auto) 1.67 K/uL (0.11-0.59) H 01/20/23 07:16 Eos # (Auto) 0.06 K/uL (0.00-0.50) 01/20/23 07:16 Baso # (Auto) 0.06 K/uL (0.00-0.20) 01/20/23 07:16 Immature Gran # (Auto) 0.28 K/uL (0.01-0.20) H 01/20/23 07:16 Sodium 135 mmol/L (136-145) L 01/20/23 07:16 Potassium 3.3 mmol/L (3.5-5.1) L 01/20/23 07:16 Chloride 96 mmol/L (98-107) L 01/20/23 07:16 Carbon Dioxide 27 mmol/L (21-32) 01/20/23 07:16 Anion Gap 12 (3-11) H 01/20/23 07:16 BUN 10 mg/dl (6-23) 01/20/23 07:16 Creatinine 0.43 mg/dl (0.6-1.2) L 01/20/23 07:16 Est Cr Clr Drug Dosing 195.0 ml/min 01/20/23 07:16 Est GFR ( Amer) 149.5 ml/min 01/20/23 07:16 Est GFR (Non-Af Amer) 129.0 ml/min 01/20/23 07:16 BUN/Creatinine Ratio 23.3 (10-20) H 01/20/23 07:16 Glucose 92 mg/dl (70-99(Fasting)) 01/20/23 07:16 Calcium 7.8 mg/dl (8.6-10.3) L 01/20/23 07:16 Total Bilirubin 0.6 mg/dl (0.2-1.0) 01/19/23 07:56 AST 30 U/L (13-39) 01/19/23 07:56 ALT 20 U/L (7-52) 01/19/23 07:56 Alkaline Phosphatase 66 U/L (34-104) 01/19/23 07:56 Total Protein 5.8 gm/dl (6.0-8.3) L D 01/19/23 07:56 Albumin 3.6 gm/dl (3.4-5.0) 01/19/23 07:56 Globulin 2.2 gm/dl (2.5-4.0) L 01/19/23 07:56 Albumin/Globulin Ratio 1.6 (0.9-2) 01/19/23 07:56 Lipase 45 U/L (11-82) 01/18/23 13:15 Urine Color Dark Yellow 01/18/23 13:08 Urine Appearance Clear (Clear) 01/18/23 13:08 Urine pH 5.0 (4.5-7.5) 01/18/23 13:08 Ur Specific Dingle 1.044 (1.000-1.030) H 01/18/23 13:08 Urine Protein Trace (Negative) H 01/18/23 13:08 Urine Glucose (UA) Negative (Negative) 01/18/23 13:08 Urine Ketones 2+ (Negative) H 01/18/23 13:08 Urine Blood Negative (Negative) 01/18/23 13:08 Urine Nitrite Negative (Negative) 01/18/23 13:08 Urine Bilirubin 2+ (Negative) H 01/18/23 13:08 Urine Urobilinogen Negative (Negative) 01/18/23 13:08 Ur Leukocyte Esterase Negative (Negative) 01/18/23 13:08 Urine WBC (Auto) 1-5 /hpf (0-5) 01/18/23 13:08 Urine RBC (Auto) 0-4 /hpf (0-4) 01/18/23 13:08 U Hyaline Cast (Auto) 10-30 /lpf (0-5) H 01/18/23 13:08 U Epithel Cells (Auto) >30 /lpf (0-5) H 01/18/23 13:08 Urine Bacteria (Auto) 1+ (Negative) H 01/18/23 13:08 Granular Casts 1-5 /lpf (0) H 01/18/23 13:08 Urine Yeast Not Reportable 01/18/23 13:08 Adenovirus (PCR) Not Detected (NotDetected) 01/18/23 Unknown B. pertussis DNA (PCR) Not Detected (NotDetected) 01/18/23 Unknown B.parapertussis DNA PCR Not Detected (NotDetected) 01/18/23 Unknown C. pneumoniae DNA (PCR) Not Detected (NotDetected) 01/18/23 Unknown Coronavirus OC43 (PCR) Not Detected (NotDetected) 01/18/23 Unknown Coronavirus HKU1 (PCR) Not Detected (NotDetected) 01/18/23 Unknown Coronavirus 229E (PCR) Not Detected (NotDetected) 01/18/23 Unknown SARS-CoV-2 (PCR) Not Detected (NotDetected) 01/18/23 Unknown Coronavirus NL63 (PCR) Not Detected (NotDetected) 01/18/23 Unknown Human Metapneumovir PCR Not Detected (NotDetected) 01/18/23 Unknown Influenza Type A (PCR) Not Detected (NotDetected) 01/18/23 Unknown Influenza Type B (PCR) Not Detected (NotDetected) 01/18/23 Unknown M. pneumoniae (PCR) Not Detected (NotDetected) 01/18/23 Unknown Parainfluenza 1 (PCR) Not Detected (NotDetected) 01/18/23 Unknown Parainfluenza 2 (PCR) Not Detected (NotDetected) 01/18/23 Unknown Parainfluenza 3 (PCR) Not Detected (NotDetected) 01/18/23 Unknown Parainfluenza 4 (PCR) Not Detected (NotDetected) 01/18/23 Unknown RSV (PCR) Not Detected (NotDetected) 01/18/23 Unknown Entero/Rhino (PCR) Not Detected (NotDetected) 01/18/23 Unknown Impressions Abdomen/Pelvis CT 01/18/23 17:08 CT abd pelvis IV con only CLINICAL HISTORY: abdominal pain; persistent vomiting TECHNIQUE: Helical axial images of the abdomen and pelvis were obtained and displayed. Automated dose lowering techniques and/or adjustment according to patient size were utilized for this exam. This exam was performed with intr avenous contrast. CT DOSE: 990.65 mGy.cm COMPARISON: Comparison is made to CT abdomen pelvis 01/12/2023 FINDINGS: Lower chest: No acute abnormality. Liver: Unremarkable. No focal lesions are seen. Gallbladder and biliary tree: No calcified gallstones. Normal caliber wall. No intra- or extrahepatic biliary ductal dilation. Pancreas: Unremarkable, no focal lesions. Spleen: Unremarkable. Adrenals: Unremarkable. Kidneys and ureters: Unremarkable. Bladder: Limited evaluation due to underdistention. Reproductive organs: Unremarkable. Bowel: A hiatal hernia is seen. Numerous dilated loops of small bowel are seen compatible with small bowel obstruction, measuring up to 45 mm in diameter. Proximal and distal transition points are seen. The colon contains moderate stool burden. The appendix is normal. No pneumatosis intestinalis is seen. Lymph nodes Retroperitoneal: Unremarkable. Pelvic: Unremarkable. Mesenteric: Unremarkable. Peritoneum: Moderate free fluid is seen in the pelvis. Vessels: Unremarkable. Abdominal wall: Unremarkable. Bones: Unremarkable. IMPRESSION: Findings are compatible with closed-loop small bowel obstruction. The colon is not entirely under distended. No evidence of pneumatosis intestinalis or other evidence of bowel ischemia. ACT 112: Negative or not required by law. Electronically signed by: Chace Asif M.D. 01/18/2023 6:24 PM KUB X-Ray 01/19/23 09:40 KUB HISTORY: Status post placement of an enteric tube recheck NGT placement after advancement 10 cm COMPARISON: KUB 01/19/2023 at 9:01 AM, CT 01/18/2023 FINDINGS: Persistent small bowel obstruction with dilated air-filled loops of small bowel measuring up to 4.9 cm. Distal tip of enteric tube projects over the expected location of the distal stomach. Moderate fecal retention of the right hemicolon. No renal calculi. No ureteral calculi. No pneumoperitoneum or pneumatosis. No fracture. IMPRESSION: 1. Distal tip of enteric tube projects over the expected location of the distal stomach. 2. Persistent high-grade small bowel obstruction. ACT 112: Negative or not required by law. The above report was generated using voice recognition software. It may contain grammatical, syntax or spelling errors. Electronically signed by: Sina Bailey M.D. 01/19/2023 11:19 AM PG Care Time/CCT Total # of Minutes Spent Total Time Spent with Patient: Total time spent is greater than 50% in coordination of care (as documented) at patient's floor/unit and/or counseling patient: Coding Level of Care Code 96710 SUB INP/OBS CARE 3/50MIN Diagnoses Abdominal pain R10.9 Abdominal location: unspecified location SBO (small bowel obstruction) K56.609 (1) Abdominal pain Abdominal location: unspecified location Qualified Code(s): R10.9 - Unspecified abdominal pain
[2023-01-20] MEDS: methylPREDNISolone 40 MG in SYRINGE 0 ML IV SCH ×2 (12:29→20:54)
[2023-01-20] MEDS ORDERED: CHLORASEPTIC 1.4% SOLN 180 ML BTL MT PRN (19:10)
[2023-01-20] MEDS: ACETAMINOPHEN 1,000 MG/100 ML VIAL IV PRN (19:14)
[2023-01-21] MEDS: LACTATED RINGER'S 1,000 ML IV SCH ×2 (05:01→13:26)
--- NOTE | 2023-01-21 05:40 | Surgery Progress Note ---
Date of Service January 21, 2023 Assessment & Plan (1) SBO (small bowel obstruction): Plan: The patient has been admitted on the hospitalist service. We recommend continuing care as follows: Maintain n.p.o. status for the present time with NG tube drainage. Con sideration may be given to removing NG tube and advancing diet beginning with clear liquids as she has had return of bowel function Continue IV fluids until certain oral intake will be adequate Gastroenterology input notedintravenous steroids to be utilized while in hospital with plans for outpatient taper due to concern for possible inflammatory bowel disease. Outpatient EGD and colonoscopy recommended due to the same concerns Encourage ambulation Check a.m. labs when available Admission and Anticipated Discharge Date Admission Date: January 18, 2023 Supervising Physician Co-Signing Physician Notes pnt S&E, agree with above. admitted with sbo, now believed to be related to possible IBD, now on iv steroids. feels much better, no pain, +bm and flatus. NG removed this am, tolerating clears. abd soft, nt, nd. patient anxious to go home, she can advance to low fiber as tolerated, outpatient steroid taper and f/u with gi. Subjective Patient is currently resting comfortably in bed. She denies any worsening abdominal pain and notes that her pain has markedly improved since admission to the hospital. She notes that she has had multiple bowel movements over the past 24 hours. She denies any nausea or vomiting. Physical Exam Gastrointestinal (Abdomen): Abdomen is soft, nondistended, nonrigid. Bowel sounds are present. Patient has minimal pain with palpation and no rebound tenderness or guarding. NG tube in place which is drained 1175 over the past 24 hours Results & Data Vital Signs (Past 12 Hours) Vital Signs Temp Pulse Resp BP Pulse Ox O2 Del Method 01/20/23 20:50 36.6 C 82 16 115/77 96 Room Air PG Care Time/CCT Total # of Minutes Spent Total Time Spent with Patient: Total time spent is greater than 50% in coordination of care (as documented) at patient's floor/unit and/or counseling patient: Coding Level of Care Code 55303 SUB INP/OBS CARE 25MIN Diagnoses SBO (small bowel obstruction) K56.609
--- NOTE | 2023-01-21 06:47 | Hospitalist Progress Note ---
Date of Service January 21, 2023 Assessment & Plan (1) SBO (small bowel obstruction): (2) Asymptomatic bacteriuria: (3) Bipolar 1 disorder: (4) Asthma: Plan Noreen Rios is a 37 year-old female with a past medical history including asthma, ?bipolar who presents with one week history of intractable nausea, vomiting, and abdominal pain. Patient was previously evaluated on 01/13/23 at [facility] ED for similar symptoms. CT was negative at that time and patient was diagnosed with enteritis and discharged with plan to follow up with PCP. Small Bowel Obstruction -CT (01/18): demonstrates dilated loops of bowel with proximal and distal transition points -NG tube in place, low intermittent wall suction -NPO, IV maintenance fluids (LR @ 125mL/h) -Analgesia with morphine PRN. Zofran for antiemetics. -Surgery - Moving bowels; continue NGT, NPO, IVF -Suspect possible underlying inflammatory etiology leading to SBO -GI consulted, recommend outpatient endoscopy/colonoscopy -Started IV solumedrol today Hyponatremia, Hypokalemia -Na of 130, Potassium of 3.0 on admission -Likely secondary to poor PO intake and ongoing nausea -Monitor with daily BMP and replete as indicated Bipolar Disorder -Continue Lamictal, Venlafaxine Asymptomatic Bacteriuria -No UTI sxs, no treatment indicated Asthma -Continue home Fluticasone, Singulair DVT Prophylaxis: Ambulation FEN: Replaced K, Monitor Na, NPO, IVF, NGT - 1350ml in last 24hrs Admission and Anticipated Discharge Date Admission Date: January 18, 2023 Results & Data Results & Data Vital Signs (Past 12 Hours) Vital Signs Temp Pulse Resp BP Pulse Ox O2 Del Method 01/20/23 20:50 36.6 C 82 16 115/77 96 Room Air
[2023-01-21 06:49] LABS: Basophils # (auto) 0.04 K/uL (0.00-0.20); Basophils % (auto) 0.3 %; Eosinophils # (auto) 0.01 K/uL (0.00-0.50); Eosinophils % (auto) 0.1 %; Hematocrit (blood only) 34.9 % (37.0-47.0); Hemoglobin 12.1 g/dl (12.0-16.0); Immature Granulocytes # (auto) 0.47 K/uL (0.01-0.20); Immature Granulocytes % (auto) 3.7 %; Lymphocytes # (auto) 2.01 K/uL (1.20-3.40); Lymphocytes % (auto) 15.9 %; Mean Corpuscular Hemoglobin 30.6 pg (25.0-34.0); Mean Corpuscular Hgb Conc 34.7 g/dL (32.0-36.0); Mean Corpuscular Volume 88.1 fL (80.0-100.0); Mean Platelet Volume 10.4 fL (9.4-12.4); Monocytes # (auto) 1.12 K/uL (0.11-0.59); Monocytes % (auto) 8.9 %; Neutrophils % (auto) 71.1 %; Platelet Count 366 K/uL (130-400); RDW Coefficient of Variation 11.3 % (11.5-14.5); RDW Standard Deviation 36.6 fL (36.4-46.3); Red Blood Count 3.96 M/uL (4.20-5.40); White Blood Count 12.65 K/ul (4.8-10.8)
[2023-01-21 07:41] LABS: Calcium 8.3 mg/dl (8.6-10.3); Creatinine Clr Calc Pharmacy 197.6 ml/min; Est GFR (African American) 149.6 ml/min; Est GFR (Non-African American) 129.1 ml/min; Potassium 3.4 mmol/L (3.5-5.1)
[2023-01-21] MEDS: VENLAFAXINE HCL XR 75 MG CAPXR PO SCH (09:26)
[2023-01-21] MEDS: methylPREDNISolone 40 MG in SYRINGE 0 ML IV SCH (09:26)
[2023-01-21] MEDS: FLUTICASONE FUROATE 200MCG 14 PUFFS/INHALER INH SCH (09:26)
[2023-01-21] MEDS: MONTELUKAST SODIUM 10 MG TABLET PO SCH (09:26)
[2023-01-21] MEDS: lamoTRIgine 100 MG TAB PO SCH (09:26)
--- NOTE | 2023-01-21 17:44 | Discharge Summary ---
Date of Service January 21, 2023 Admission HPI Per Admitting Provider 37 yo female PMHx asthma, ?bipolar presents with one week history of intractable nausea, vomiting, and abdominal pain. Pt was evaluated 01/13/23 at [facility] ED for similar symptoms, CT was negative, diagnosed with enteritis and dc with plan to f/u with PCP. Over the past week she has had fluctuating abdominal pain and constant nausea/vomiting. Unable to tolerate anything PO besides some water. Rates abdominal pain at 4/10 at time of exam. Denies fevers, chills, sick contacts, recent travel, history of abdominal surgeries, dysuria, hematuria. Meds allergies reviewed In ED: CT demonstrates SBO with proximal and distal transition points, hiatal hernia, large amount of stool present, no free air or other signs of strangulation or perforation. Hemodynamically stable, afebrile. Received 2L NSS. No leukocytosis. Found to be hyponatremic, hypochloremic, hypokalemic. Admission Exam Per Admitting Provider General: NAD, non-toxic in appearance, AA&O x 4, answers questions appropriately and follows commands. Skin: warm, dry, intact HEENT: NC/AT, anicteric sclera, conjunctiva without injection, dry membranes, trachea midline Heart: +S1/S2, regular, no m/r/g Lungs: equal air entry bilaterally, no rales/rhonchi/wheezes Abd: +BS, Soft, non distended, TTP throughout, no masses/organomegaly/ascites Ext: warm, no clubbing/cyanosis or edema Neuro: nonfocal, patient AA&O x 4, speech intact, no facial droop, moving all extremities on command. Principal Diagnosis Small bowel obstruction Discharge Exam Constitutional: well-appearing, no acute distress HEENT: NCAT, no conjunctival injection CV: regular rhythm, no murmur appreciated, extremities well-perfused, no LE edema Resp: CTABL, no wheezes/rales/rhonchi appreciated, no increased work of breathing GI: soft, nondistended, nontender, BS normoactive MSK: no gross deformities appreciated Skin: warm, dry, no rash appreciated Neuro: alert, oriented, no focal neurologic deficit appreciated Discharge Data Allergies Allergy/AdvReac Type Severity Reaction Status Date / Time theophylline Allergy Severe NAUSEA Unverified 01/19/23 17:32 VOMITING acetaminophen [From Vicodin] Allergy Intermediate Nausea Unverified 01/19/23 17:32 hydrocodone [From Vicodin] Allergy Intermediate Nausea Unverified 01/19/23 17:32 Consultations 01/18/23 19:51 ED Decision to Admit Stat 01/18/23 23:07 Consult General Surgery Routine 01/19/23 09:44 Consult Gastroenterology Routine Ordered Studies 01/18/23 17:08 CT Abd and Pelvis [CT abd pelvis IV con only] Stat Hospital Course (1) SBO (small bowel obstruction): (2) Asymptomatic bacteriuria: (3) Bipolar 1 disorder: (4) Asthma: Plan Noreen Rios is a 37 year-old female with a past medical history including asthma, ?bipolar who presents with one week history of intractable nausea, vomiting, and abdominal pain. Patient was previously evaluated on 01/13/23 at [facility] ED for similar symptoms. CT was negative at that time and patient was diagnosed with enteritis and discharged with plan to follow up with PCP. Small Bowel Obstruction -CT (01/18): demonstrates dilated loops of bowel with proximal and distal transition points -Patient was made n.p.o., NG tube was placed, and received IV maintenance fluids. -Patient was able to have multiple bowel movements since admission and was able to advance to diet. Surgery team followed her during hospital stay. -Suspecting underlying inflammatory etiology - GI was consulted. Patient was started on IV Solu-Medrol in the hospital per gastroenterology recommendation. Discharged on prednisone 40 mg once a day and gave a month supply. Patient should follow-up with gastroenterology immediately next week and discuss taper schedule. Message also sent to gastroenterology to call the patient to discuss taper. -Patient should follow-up with PCP within 1 to 2 weeks and ensure follow up with gastroenterology for steroid taper schedule. Bipolar Disorder -Continue Lamictal, Venlafaxine Asymptomatic Bacteriuria -No UTI sxs, no treatment indicated Asthma -Continue home Fluticasone, Singulair Total Time Total Time Spent Total Time Spent (In Minutes): Please refer to attendings attestation Discharge Plan Discharge Items Patient Disposition: Home - Self-Care Reason For Visit: SBO Discharge Diagnosis: Small bowel obstruction Activity: Resume your previous activity Non-emergency contact: Primary Care Provider and Refinisher Call non-emergency contact if: you have any medication questions, your pain is worsening, your pain is unusual for you and your temperature is above 101.5 Follow-up/Referrals: Manuel Santillan MD [Physician] - (within 1-2 weeks. ) Jerry Steinberg DO [Primary Care Provider] - (in 1-2 weeks. ) Dietitian Info: You should slowly advance your diet as tolerated Diet: Regular Addtl Attending Provider Instructions: You were admitted to the hospital for small bowel obstruction. You were treated with bowel rest and had a NG tube placed. Your symptoms have resolved at this time. Of note, you may have some underlying irritable bowel syndrome (IBS). It is recommended that you follow-up with GI to have an outpatient EGD and colonoscopy. A discharge summary will be sent to your primary care physician to ensure continuity of care. Please bring this discharge summary with you to your next office appointment so that your provider can review it at that time. Follow-up appointments: * Make a follow-up appointment with your PCP within the next week. It is very important that you follow up with them shortly after discharge from the hospital. * Make an appointment with GI within 1-2 weeks. You will need a outpatient EGD and colonoscopy. You should also call their office regarding your prednisone taper. Their office number is [phone] * Keep all your follow-up appointments as already scheduled. If you cannot make an appointment, notify your provider. Medications: Your medication list has been reviewed and reconciled upon discharge to ensure accuracy and continuity of care. An updated list of all your medications is included with your hospital discharge paperwork. Please review this list closely, and make note of any changes. * We sent a new medication called prednisone to your pharmacy. Take prednisone 40 mg once a day for the next 30 days. You will need adjustment to this medication that should be instructed by gastroenterology. It is imperative that you follow-up with gastroenterology as soon as possible regarding your steroid taper. * If you have any issues filling these prescriptions, please call [phone] and ask to leave a message for Dr. Chauhan. * Take your medications as instructed; do not skip a dose of your medicines. Make sure all of your doctors know every medicine you are taking (including eynw-lvt-dufnrwo medicines, vitamins, and supplements). Call your primary care provider before taking any new medicines (including over- the-counter medicines, vitamins, and supplements), because some of these may interact with your current medications, or may make your symptoms worse. Tell your primary care provider if you cannot afford your medications. CONTACT YOUR PRIMARY CARE PROVIDER if you experience any of the following: * Worsening of symptoms * Fever, chills, or fatigue * Difficulty following your treatment plan, or difficulty taking medications CALL 911 OR GO TO THE EMERGENCY DEPARTMENT if you experience any of the following: * Sudden, severe abdominal pain or nausea/vomiting * Severe chest pain, or chest pain that radiates (moves) to your jaw or arm * Sudden, severe shortness of breath or difficulty breathing Thank you for allowing us to participate in your care. Pending Studies at Discharge: No Stand-Alone Forms: My [facility], Smoking Cessation Medications and DC Order Prescriptions: New prednisone 20 mg tablet 40 mg PO DAILY 30 Days Qty: 60 0RF Continued ondansetron 4 mg tablet,disintegrating 4 mg PO Q8H PRN (Reason: nausea and vomiting) Qty: 30 0RF venlafaxine 150 mg capsule,extended release 24hr 150 mg PO QAM montelukast 10 mg tablet 10 mg PO HS albuterol sulfate 90 mcg/actuation HFA aerosol inhaler 2 puff INHALATION Q6H PRN (Reason: SOB/Wheezing) Flovent Diskus 250 mcg/actuation blister with device 1 inh INHALATION BID bupropion HCl 150 mg tablet extended release 24 hr 150 mg PO QAM lamotrigine 50 mg tablet extended release 24hr See Rx Instructions .ROUTE .COMPLEX Rx Instructions: take 50mg by mouth every morning ALONG WITH 100MG IN THE MORNING TOTAL 150MG lamotrigine 100 mg tablet extended release 24hr See Rx Instructions .ROUTE .COMPLEX Rx Instructions: Take 100mg w/50mg tablet by mouth to equal 150mg in the morning and then take 100mg by mouth at bedtime Discharge Orders: Discharge Order (Routine); Ordered 01/21/23 Ordered By: Shan Chauhan Admission Data Admit Date/Time: 01/18/23 20:41 Attending Provider: Vanita Vasquez Admit Provider: Javy Cohn Primary Care Provider: Jerry Steinberg Other Providers: Xenia Hilton ; Thony Mccauley ; Manuel Santillan Other Interventions: Discharge Summary Assessment (RN) Last Done: 01/21/23 18:02 Supervising Physician Co-Signing Physician Notes Resident Physician Supervision Note: I independently interviewed and examined the patient and verified the lynn history and physical, reviewed labs and image studies and agree with resident findings and care plan. Resident Activity Tracking Resident Involvement: Resident Care Provided Care Provided: Adult Hospital Medicine
== END 2023-01-21 18:29 | disposition home or self-care (01) | DRG 389 ==
LOC: ED 11:19 → SUATTDRO 20:41 → 3N 20:41

== ENCOUNTER 2023-01-24 14:32 | Inpatient (IN) ==
[2023-01-24 15:58] LABS: Basophils # (auto) 0.07 K/uL (0.00-0.20); Basophils % (auto) 0.4 %; Eosinophils # (auto) 0.03 K/uL (0.00-0.50); Eosinophils % (auto) 0.2 %; Hemoglobin 13.2 g/dl (12.0-16.0); Immature Granulocytes # (auto) 0.14 K/uL (0.01-0.20); Immature Granulocytes % (auto) 0.8 %; Lymphocytes # (auto) 1.39 K/uL (1.20-3.40); Mean Corpuscular Hemoglobin 30.8 pg (25.0-34.0); Mean Corpuscular Hgb Conc 34.7 g/dL (32.0-36.0); Mean Corpuscular Volume 88.6 fL (80.0-100.0); Monocytes % (auto) 6.9 %; Neutrophils # (auto) 14.48 K/uL (1.40-6.50); Neutrophils % (auto) 83.7 %; Platelet Count 512 K/uL (130-400); RDW Coefficient of Variation 11.9 % (11.5-14.5); RDW Standard Deviation 38.1 fL (36.4-46.3); Red Blood Count 4.29 M/uL (4.20-5.40); White Blood Count 17.31 K/ul (4.8-10.8)
[2023-01-24 16:10] LABS: Albumin Globulin Ratio 1.6 (0.9-2); Albumin Level 4.1 gm/dl (3.4-5.0); BUN Creatinine Ratio 25.8 (10-20); Bilirubin,Total 0.5 mg/dl (0.2-1.0); Calcium 9.4 mg/dl (8.6-10.3); Creatinine Clr Calc Pharmacy 128.5 ml/min; Est GFR (African American) 131.6 ml/min; Est GFR (Non-African American) 113.6 ml/min; Globulin 2.6 gm/dl (2.5-4.0); Potassium 3.4 mmol/L (3.5-5.1); Total Protein 6.7 gm/dl (6.0-8.3)
[2023-01-24 16:19] LABS: Pregnancy Test, Serum Negative (Negative)
[2023-01-24] MEDS ORDERED: ONDANSETRON INJ 2 MG/ML 2 ML VIAL IV STA (16:22)
[2023-01-24] MEDS ORDERED: SODIUM CHLORIDE 0.9% 2,000 ML IV ONE (16:22)
--- NOTE | 2023-01-24 16:40 | CT Scan Report ---
CT abd pelvis wo con CLINICAL HISTORY: abdominal pain/distension; recent SBO TECHNIQUE: Helical axial images of the abdomen and pelvis were obtained. Automated dose lowering tech niques and/or adjustment according to patient size were utilized for this exam. This exam was perfor med without intravenous contrast. CT DOSE: 1009.91 mGy.cm COMPARISON: Comparison is made to CT abdomen pelvis 01/18/2023 FINDINGS: Lower chest: No acute abnormality. Liver: Unremarkable. No focal lesions are seen. Gallbladder and biliary tree: The gallbladder is contracted. No intra- or extrahepatic biliary ductal dilation. Pancreas: Unremarkable, no focal lesions. Spleen: Unremarkable. Adrenals: Unremarkable. Kidneys and ureters: Unremarkable. Bladder: Limited evaluation due to underdistention. Reproductive organs: Unremarkable. Bowel: The appendix is normal. Numerous dilated loops of small bowel are seen measuring up to 45 mm i n diameter. No clear transition point is seen. Lymph nodes Retroperitoneal: Subcentimeter lymph nodes are noted. Pelvic: Unremarkable. Mesenteric: Unremarkable. Peritoneum: Trace peritoneal free fluid is seen. Vessels: Unremarkable. Abdominal wall: Unremarkable. Bones: Degenerative changes in the visualized spine. IMPRESSION: Findings are compatible with small bowel obstruction without evidence of ischemia or perforation. No closed-loop obstruction is seen. ACT 112: Negative or not required by law. Electronically signed by: Chace Asif M.D. 01/24/2023 4:39 PM
[2023-01-24 17:09] LABS: Appearance Urine Clear (Clear); Bilirubin Urine Negative (Negative); Blood Urine Negative (Negative); Color Urine Dark Yellow; Glucose Urine UA Negative (Negative); Ketones Urine Negative (Negative); Leukocyte Esterase Urine Negative (Negative); Nitrite Urine Negative (Negative); Protein Urine Negative (Negative); Specific Gravity Urine 1.034 (1.000-1.030); Urobilinogen Urine Negative (Negative); pH Urine 5.5 (4.5-7.5)
--- NOTE | 2023-01-24 17:09 | XRay Report ---
XR abdomen 2V w PA chest CLINICAL HISTORY: Abdominal pain, recent SBO TECHNIQUE: 2 views of the abdomen were obtained. A single view of the chest was obtained. Comparison: Comparison is made to abdomen radiograph 01/19/[address] abdomen pelvis 01/24/2023 FINDINGS: No lines and tubes are seen. The cardiomediastinal silhouette is normal. The lungs are clear. No evid ence of pleural effusion or pneumothorax. The osseous structures are grossly unremarkable. Numerous gas-distended loops of small bowel are seen compatible with small bowel obstruction. A moderate amount of stool is noted within the large bowel. IMPRESSION: Redemonstration of high-grade small bowel obstruction. ACT 112: Negative or not required by law. Electronically signed by: Chace Asif M.D. 01/24/2023 5:08 PM
--- NOTE | 2023-01-24 17:29 | Emergency Department Note ---
Impression & Plan SBO (small bowel obstruction), Abdominal pain, Acute pancreatitis, Leukocytosis ED Provider Note HISTORY OF PRESENT ILLNESS: Patient is a 38-year-old female presenting with abdominal pain. Patient reports that yesterday and into today she had significant abdominal distention and upper abdominal pain. Reports nausea but only vomited last night. She was recently admitted to the hospital for small bowel obstruction. She is to follow-up with GI later this week. Denies any fevers. Denies any dysuria or hematuria. Denies any chest pain or shortness of breath. Denies ever having abdominal surgeries in the past. ROS: as above PHYSICAL EXAM: Constitutional: Patient appears in no acute distress. HENT: Head: Normocephalic and atraumatic. Eyes: EOMI, PERRL Mouth/Throat: Mucous membranes moist. Neck: Trachea midline. Neck supple. Cardiovascular: Tachycardic with regular rhythm. No murmurs, rubs or gallops. Intact distal pulses. Pulmonary/Chest: No respiratory distress. Breath sounds clear and equal bilaterally. No wheezes or rales. Abdominal: Abdomen soft, no rebound or guarding. Generalized tenderness to palpation Musculoskeletal: No edema, tenderness or deformity noted. Skin: Warm and dry. No rash, erythema, pallor or cyanosis Psychiatric: Appropriate mood and affect for situation. Neurological: Alert and keenly responsive. CN II-XII grossly intact, moving all extremities equally and fully. MDM: - Vitals signs showed tachycardia. - History obtained via patient. Patient presents with abdominal pain. Patient reports that yesterday and into today she had significant abdominal distention and upper abdominal pain. She vomited last night. Reports nausea but no further vomiting today. She was recently admitted to the hospital for small bowel obstruction. - Chronic conditions affecting care: none - Differential diagnoses include, but are not limited to: Cholecystitis; appendicitis; small bowel obstruction; ileus - Order placed for continuous cardiac monitoring. At this time, monitor showed rate of 100 bpm with normal sinus rhythm, per my interpretation. - External medical records reviewed. Discharge summary from 01/21/2023 was reviewed. Patient had an NG tube placed while inpatient during her stay. She had her diet advanced and normal bowel movements and had no surgical interventions. She was discharged with outpatient follow-up for gastroenterology, as they were concerned this may be a component of inflammatory bowel disease causing her obstruction. - EKG reviewed by myself showed normal sinus rhythm. Rate tachycardic at 123 bpm. QTc 352. No acute ischemic changes - Laboratory workup interpreted by myself showed leukocytosis (17.31); thrombocytosis (plt 512); hypokalemia (K 3.4); hyponatremia (Na 133); elevated lipase (136) - CT abdomen/pelvis wo contrast showed small bowel obstruction. - Discussed placement of NG tube with the patient. However, she would like to hold off on having this performed at this time. She would like to wait until she vomits again, she has not had any vomiting today. 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 - Hospitalist consulted for admission - Patient admitted to [facility] service for further evaluation and management. ASSESSMENT AND PLAN: Diagnosis: Abdominal pain; small bowel obstruction; pancreatitis; leukocytosis Plan: Admit Past Med/Surg History Medical History No pertinent family history No pertinent past medical history Surgical History No pertinent past surgical history Social History Smoking Status: Never smoker Hx Alcohol Use: Yes (pt no longer drinks) Hx Substance Use: No Preferred Language: French Communication Ability: Effective Peanut Separator Required: No Beliefs That Will Affect Care: None Current Living Situation: Spouse Current Living Situation Comment: split level, 15 stairs to upper level Feels Safe at Home: Yes Assistive Devices: None Allergies Allergies Allergy/AdvReac Type Severity Reaction Status Date / Time theophylline Allergy Severe NAUSEA Unverified 01/24/23 17:29 VOMITING acetaminophen [From Vicodin] Allergy Intermediate Nausea Unverified 01/24/23 17:29 hydrocodone [From Vicodin] Allergy Intermediate Nausea Unverified 01/24/23 17:29 Home Meds Home Medications Medication Instructions Recorded Confirmed albuterol sulfate 90 mcg/actuation 2 puff inhalation Q6H PRN 01/19/23 01/24/23 aerosol inhaler SOB/Wheezing bupropion HCl 150 mg 24 hr tablet, 150 mg PO QAM 01/19/23 01/24/23 extended release fluticasone propionate 250 1 inh inhalation BID 01/19/23 01/24/23 mcg/actuation blister powder for inhalation (Flovent Diskus) lamotrigine 100 mg tablet,extended See Rx Instructions .Route .COMPLEX 01/19/23 01/24/23 release 24 hr lamotrigine 50 mg tablet,extended See Rx Instructions .Route .COMPLEX 01/19/23 01/24/23 release 24 hr montelukast 10 mg tablet 10 mg PO HS 01/19/23 01/24/23 venlafaxine 150 mg 150 mg PO QAM 01/19/23 01/24/23 capsule,extended release 24 hr Previous Rx's Medication Instructions Recorded ondansetron 4 mg disintegrating 4 mg PO Q8H PRN nausea and 01/12/23 tablet vomiting #30 tabs prednisone 20 mg tablet 40 mg PO DAILY 30 days #60 tabs 01/21/23 Results & Data (ED) Vital Signs Vital Signs - 24 hr 01/24/23 14:42 Temperature 36.5 C Temperature Source Temporal Artery Scan Pulse Rate 136 H Respiratory Rate 20 Respiratory Effort / Characteristics Non-Labored Spontaneous Respiratory Depth Normal Blood Pressure 100/64 Blood Pressure Mean 76 Pulse Oximetry 96 Oxygen Delivery Method Room Air Sepsis Recent Fever Within 48 Hours No Sepsis New/Unexplained Change in Mental Status No Sepsis Action Taken by Nursing No Action Required Laboratory Data 01/24/23 15:37 01/24/23 15:37 Lab Results 01/24/23 01/24/23 01/24/23 Range/Units 15:37 15:37 15:37 WBC 17.31 H (4.8-10.8) K/ul RBC 4.29 (4.20-5.40) M/uL Hgb 13.2 (12.0-16.0) g/dl Hct 38.0 (37.0-47.0) % MCV 88.6 (80.0-100.0) fL MCH 30.8 (25.0-34.0) pg MCHC 34.7 (32.0-36.0) g/dL RDW Std Deviation 38.1 (36.4-46.3) fL RDW Coeff of Devin 11.9 (11.5-14.5) % Plt Count 512 H (130-400) K/uL MPV 10.0 (9.4-12.4) fL Immature Gran % (Auto) 0.8 % Neut % (Auto) 83.7 % Lymph % (Auto) 8.0 % [place] % (Auto) 6.9 % Eos % (Auto) 0.2 % Baso % (Auto) 0.4 % Neut # (Auto) 14.48 H (1.40-6.50) K/uL Lymph # (Auto) 1.39 (1.20-3.40) K/uL [place] # (Auto) 1.20 H (0.11-0.59) K/uL Eos # (Auto) 0.03 (0.00-0.50) K/uL Baso # (Auto) 0.07 (0.00-0.20) K/uL Immature Gran # (Auto) 0.14 (0.01-0.20) K/uL Sodium 133 L (136-145) mmol/L Potassium 3.4 L (3.5-5.1) mmol/L Chloride 92 L (98-107) mmol/L Carbon Dioxide 31 (21-32) mmol/L Anion Gap 10 (3-11) BUN 16 (6-23) mg/dl Creatinine 0.62 (0.6-1.2) mg/dl Est Cr Clr Drug Dosing 128.5 ml/min Est GFR ( Amer) 131.6 ml/min Est GFR (Non-Af Amer) 113.6 ml/min BUN/Creatinine Ratio 25.8 H (10-20) Glucose 137 H (70-99(Fasting)) mg/dl Calcium 9.4 (8.6-10.3) mg/dl Total Bilirubin 0.5 (0.2-1.0) mg/dl AST 17 (13-39) U/L ALT 24 (7-52) U/L Alkaline Phosphatase 89 (34-104) U/L Total Protein 6.7 (6.0-8.3) gm/dl Albumin 4.1 (3.4-5.0) gm/dl Globulin 2.6 (2.5-4.0) gm/dl Albumin/Globulin Ratio 1.6 (0.9-2) Lipase 136 H (11-82) U/L HCG, Qual Negative (Negative) Urine Color Urine Appearance (Clear) Urine pH (4.5-7.5) Ur Specific [place] (1.000-1.030) Urine Protein (Negative) Urine Glucose (UA) (Negative) Urine Ketones (Negative) Urine Blood (Negative) Urine Nitrite (Negative) Urine Bilirubin (Negative) Urine Urobilinogen (Negative) Ur Leukocyte Esterase (Negative) 01/24/23 Range/Units 17:00 WBC (4.8-10.8) K/ul RBC (4.20-5.40) M/uL Hgb (12.0-16.0) g/dl Hct (37.0-47.0) % MCV (80.0-100.0) fL MCH (25.0-34.0) pg MCHC (32.0-36.0) g/dL RDW Std Deviation (36.4-46.3) fL RDW Coeff of Devin (11.5-14.5) % Plt Count (130-400) K/uL MPV (9.4-12.4) fL Immature Gran % (Auto) % Neut % (Auto) % Lymph % (Auto) % [place] % (Auto) % Eos % (Auto) % Baso % (Auto) % Neut # (Auto) (1.40-6.50) K/uL Lymph # (Auto) (1.20-3.40) K/uL [place] # (Auto) (0.11-0.59) K/uL Eos # (Auto) (0.00-0.50) K/uL Baso # (Auto) (0.00-0.20) K/uL Immature Gran # (Auto) (0.01-0.20) K/uL Sodium (136-145) mmol/L Potassium (3.5-5.1) mmol/L Chloride (98-107) mmol/L Carbon Dioxide (21-32) mmol/L Anion Gap (3-11) BUN (6-23) mg/dl Creatinine (0.6-1.2) mg/dl Est Cr Clr Drug Dosing ml/min Est GFR ( Amer) ml/min Est GFR (Non-Af Amer) ml/min BUN/Creatinine Ratio (10-20) Glucose (70-99(Fasting)) mg/dl Calcium (8.6-10.3) mg/dl Total Bilirubin (0.2-1.0) mg/dl AST (13-39) U/L ALT (7-52) U/L Alkaline Phosphatase (34-104) U/L Total Protein (6.0-8.3) gm/dl Albumin (3.4-5.0) gm/dl Globulin (2.5-4.0) gm/dl Albumin/Globulin Ratio (0.9-2) Lipase (11-82) U/L HCG, Qual (Negative) Urine Color Dark Yellow Urine Appearance Clear (Clear) Urine pH 5.5 (4.5-7.5) Ur Specific [place] 1.034 H (1.000-1.030) Urine Protein Negative (Negative) Urine Glucose (UA) Negative (Negative) Urine Ketones Negative (Negative) Urine Blood Negative (Negative) Urine Nitrite Negative (Negative) Urine Bilirubin Negative (Negative) Urine Urobilinogen Negative (Negative) Ur Leukocyte Esterase Negative (Negative) Imaging Data Radiologist's Impression: Chest/Abdomen X-ray 01/24/23 15:08 XR abdomen 2V w PA chest CLINICAL HISTORY: Abdominal pain, recent SBO TECHNIQUE: 2 views of the abdomen were obtained. A single view of the chest was obtained. Comparison: Comparison is made to abdomen radiograph 01/19/[address] abdomen pelvis 01/24/2023 FINDINGS: No lines and tubes are seen. The cardiomediastinal silhouette is normal. The lungs are clear. No evidence of pleural effusion or pneumothorax. The osseous structures are grossly unremarkable. Numerous gas-distended loops of small bowel are seen compatible with small bowel obstruction. A moderate amount of stool is noted within the large bowel. IMPRESSION: Redemonstration of high-grade small bowel obstruction. ACT 112: Negative or not required by law. Electronically signed by: Chace Asif M.D. 01/24/2023 5:08 PM Abdomen/Pelvis CT 01/24/23 15:24 CT abd pelvis wo con CLINICAL HISTORY: abdominal pain/distension; recent SBO TECHNIQUE: Helical axial images of the abdomen and pelvis were obtained. Automat ed dose lowering techniques and/or adjustment according to patient size were utilized for this exam. This exam was performed without intravenous contrast. CT DOSE: 1009.91 mGy.cm COMPARISON: Comparison is made to CT abdomen pelvis 01/18/2023 FINDINGS: Lower chest: No acute abnormality. Liver: Unremarkable. No focal lesions are seen. Gallbladder and biliary tree: The gallbladder is contracted. No intra- or extrahepatic biliary ductal dilation. Pancreas: Unremarkable, no focal lesions. Spleen: Unremarkable. Adrenals: Unremarkable. Kidneys and ureters: Unremarkable. Bladder: Limited evaluation due to underdistention. Reproductive organs: Unremarkable. Bowel: The appendix is normal. Numerous dilated loops of small bowel are seen measuring up to 45 mm in diameter. No clear transition point is seen. Lymph nodes Retroperitoneal: Subcentimeter lymph nodes are noted. Pelvic: Unremarkable. Mesenteric: Unremarkable. Peritoneum: Trace peritoneal free fluid is seen. Vessels: Unremarkable. Abdominal wall: Unremarkable. Bones: Degenerative changes in the visualized spine. IMPRESSION: Findings are compatible with small bowel obstruction without evidence of ischemia or perforation. No closed-loop obstruction is seen. ACT 112: Negative or not required by law. Electronically signed by: Chace Asif M.D. 01/24/2023 4:39 PM Discharge Plan Visit Data Chief Complaint: Abdominal Pain Stated Complaint: ABDOMINAL PAIN ED Provider: Vivian Campos Discharge Problem: SBO (small bowel obstruction), Abdominal pain, Acute pancreatitis, Leukocytosis Forms Stand Alone Forms: [facility] [employer] Prescriptions Prescriptions: No Action ondansetron 4 mg tablet,disintegrating 4 mg PO Q8H PRN (Reason: nausea and vomiting) Qty: 30 0RF venlafaxine 150 mg capsule,extended release 24hr 150 mg PO QAM montelukast 10 mg tablet 10 mg PO HS albuterol sulfate 90 mcg/actuation HFA aerosol inhaler 2 puff INHALATION Q6H PRN (Reason: SOB/Wheezing) Flovent Diskus 250 mcg/actuation blister with device 1 inh INHALATION BID bupropion HCl 150 mg tablet extended release 24 hr 150 mg PO QAM lamotrigine 50 mg tablet extended release 24hr See Rx Instructions .ROUTE .COMPLEX Rx Instructions: take 50mg by mouth every morning ALONG WITH 100MG IN THE MORNING TOTAL 150MG lamotrigine 100 mg tablet extended release 24hr See Rx Instructions .ROUTE .COMPLEX Rx Instructions: Take 100mg w/50mg tablet by mouth to equal 150mg in the morning and then take 100mg by mouth at bedtime prednisone 20 mg tablet 40 mg PO DAILY 30 Days Qty: 60 0RF Referrals Referrals: Jerry Steinberg DO [Primary Care Provider] -
--- NOTE | 2023-01-24 17:49 | History & Physical Report ---
Date of Service January 24, 2023 Assessment & Plan (1) SBO (small bowel obstruction): Plan: Recurrent with surgically naive abdomen Some concern for IBD previously - restart on Solu-medrol 40mg IV BID and reconsult GI Consult surgery - discussed with surgical attending and PA on admission NPO, IV fluids, NG tube to low intermittent suction (2) Diarrhea: Plan: Watery diarrhea is new since last admission Stool + c. diff PCR ?overflow in setting of obstruction (3) Asthma: Plan: Continue Flovent, albuterol PRN Hold all oral medications currently (4) Bipolar 1 disorder: Plan: Hold all oral medications currently May need occasional lorazepam dosing for anxiety Plan VTE Prophylaxis - Lovenox 40mg SQ daily, despite young age she has an acute inflammatory process of her abdomen and prolonged hospitalization therefore will give VTE prophylaxis Diet - NPO Disposition - admit to med/surg Admission and Anticipated Discharge Date Admission Date: Jan 24, 2023 History of Present Illness Chief Complaint: Abdominal pain Primary Care Provider: Jerry Steinberg DO Noreen Motta is a 38 year old female who presents to the ER with abdominal pain and diarrhea. She was recently admitted from January 18 - with the same pain and was diagnosed with a small bowel obstruction and suspected inflammatory bowel disease causing small bowel enteritis as the cause. This was treated conservatively with IV fluids, NG tube and bowel rest. She reports being good for a day. However the pain returned on Monday getting progressively worse throughout the day. Pain is all over her abdomen but mostly under rib cage. Radiates to her back. Current severity 5-6/10, 7-8/10 at worst last night. Characteristic - cramping with additional stabs. No times of complete relief since it came back. Associated nausea and vomiting last night. Diarrhea is a new symptom which started last night around 10pm "like peeing out of my anus". Watery brown stool. 3-4 bowel movements since then. No urinary or respiratory symptoms. Allergies Allergy/AdvReac Type Severity Reaction Status Date / Time theophylline Allergy Severe NAUSEA Unverified 01/24/23 17:29 VOMITING hydrocodone [From Vicodin] Allergy Intermediate Nausea Unverified 01/24/23 17:29 Home Medications Medication Instructions Recorded Confirmed Type ondansetron 4 mg disintegrating 4 mg PO Q8H PRN nausea and 01/12/23 01/24/23 Rx tablet vomiting #30 tabs albuterol sulfate 90 mcg/actuation 2 puff inhalation Q6H PRN 01/19/23 01/24/23 History aerosol inhaler SOB/Wheezing bupropion HCl 150 mg 24 hr tablet, 150 mg PO QAM 01/19/23 01/24/23 History extended release fluticasone propionate 250 1 inh inhalation BID 01/19/23 01/24/23 History mcg/actuation blister powder for inhalation (Flovent Diskus) lamotrigine 100 mg tablet,extended See Rx Instructions .Route .COMPLEX 01/19/23 01/24/23 History release 24 hr lamotrigine 50 mg tablet,extended See Rx Instructions .Route .COMPLEX 01/19/23 01/24/23 History release 24 hr montelukast 10 mg tablet 10 mg PO HS 01/19/23 01/24/23 History venlafaxine 150 mg 150 mg PO QAM 01/19/23 01/24/23 History capsule,extended release 24 hr prednisone 20 mg tablet 40 mg PO DAILY 30 days #60 tabs 01/21/23 01/24/23 Rx Past Med/Surg History Medical History No pertinent family history No pertinent past medical history Surgical History No pertinent past surgical history Social History Smoking Status: Never smoker Second Hand Exposure: No; Do You Dip or Chew Tobacco: No; Tobacco Cessation Education Requested by Patient: No Hx Alcohol Use: No Hx Substance Use: No Preferred Language: Pashto Communication Ability: Effective Business Technology Analyst Required: No Beliefs That Will Affect Care: None Current Living Situation: Spouse Current Living Situation Comment: split level, 15 stairs to upper level Other Information That Helps Us Care for You: No Feels Safe at Home: Yes Safety Concerns: Feels Safe At This Time Assistive Devices: Glasses Review of Systems Review of Systems: All systems reviewed & are unremarkable except as noted in HPI & below Physical Exam Constitutional: WD/WN, vitals as above Eyes: + anicteric sclerae; normal pupil size Respiratory: normal respiratory effort, lungs clear to auscultation Cardiovascular: RRR, no murmur, no edema Gastrointestinal (Abdomen): Inspection/Auscultation: + abdomen distended and + hypoactive bowel sounds Percussion/Palpation: + abdomen tender (generalized), + guarding and abdomen soft; abdomen not rigid Musculoskeletal: no cyanosis or clubbing, extremities motor strength 5/5 Skin: no rashes, warm and dry Neurologic: moves all extremities and awake; not confused Psychiatric: A+Ox3, euthymic affect Genitourinary: no CVA tenderness Results & Data Results & Data Vital Signs (Past 12 Hours) Vital Signs Temp Pulse Resp BP Pulse Ox O2 Del Method 01/24/23 14:42 36.5 C 136 H 20 100/64 96 Room Air Laboratory Results Abnormal lab results 01/24/23 01/24/23 01/24/23 Range/Units 15:37 15:37 17:00 WBC 17.31 H (4.8-10.8) K/ul Plt Count 512 H (130-400) K/uL Neut # (Auto) 14.48 H (1.40-6.50) K/uL [place] # (Auto) 1.20 H (0.11-0.59) K/uL Sodium 133 L (136-145) mmol/L Potassium 3.4 L (3.5-5.1) mmol/L Chloride 92 L (98-107) mmol/L BUN/Creatinine Ratio 25.8 H (10-20) Glucose 137 H (70-99(Fasting)) mg/dl Lipase 136 H (11-82) U/L Ur Specific [place] 1.034 H (1.000-1.030) Diagnostic Findings XR abdomen 2V w PA chest CLINICAL HISTORY: Abdominal pain, recent SBO TECHNIQUE: 2 views of the abdomen were obtained. A single view of the chest was obtained. Comparison: Comparison is made to abdomen radiograph 01/19/[address] abdomen pelvis 01/24/2023 FINDINGS: No lines and tubes are seen. The cardiomediastinal silhouette is normal. The lungs are clear. No evidence of pleural effusion or pneumothorax. The osseous structures are grossly unremarkable. Numerous gas-distended loops of small bowel are seen compatible with small bowel obstruction. A moderate amount of stool is noted within the large bowel. IMPRESSION: Redemonstration of high-grade small bowel obstruction. CT abd pelvis wo con CLINICAL HISTORY: abdominal pain/distension; recent SBO TECHNIQUE: Helical axial images of the abdomen and pelvis were obtained. Automated dose lowering techniques and/or adjustment according to patient size were utilized for this exam. This exam was performed without intravenous contrast. CT DOSE: 1009.91 mGy.cm COMPARISON: Comparison is made to CT abdomen pelvis 01/18/2023 FINDINGS: Lower chest: No acute abnormality. Liver: Unremarkable. No focal lesions are seen. Gallbladder and biliary tree: The gallbladder is contracted. No intra- or extrahepatic biliary ductal dilation. Pancreas: Unremarkable, no focal lesions. Spleen: Unremarkable. Adrenals: Unremarkable. Kidneys and ureters: Unremarkable. Bladder: Limited evaluation due to underdistention. Reproductive organs: Unremarkable. Bowel: The appendix is normal. Numerous dilated loops of small bowel are seen measuring up to 45 mm in diameter. No clear transition point is seen. Lymph nodes Retroperitoneal: Subcentimeter lymph nodes are noted. Pelvic: Unremarkable. Mesenteric: Unremarkable. Peritoneum: Trace peritoneal free fluid is seen. Vessels: Unremarkable. Abdominal wall: Unremarkable. Bones: Degenerative changes in the visualized spine. IMPRESSION: Findings are compatible with small bowel obstruction without evidence of ischemia or perforation. No closed-loop obstruction is seen. Medications Administered ER Medications Given: 2L NSS bolus ECG Rate (beats per minute): 123 Rhythm: sinus tachycardia Findings: + nonspecific-ST abn and + T-wave inversion (Lateral) Comparison ECG Date: from (Jan 18, 2023) Change: the following changes noted (T wave flattening in lateral leads now inverted) Code Status & VTE Plan Code Status Full VTE Prophylaxis Plan VTE Prophylaxis will be ordered: Yes PG Care Time/CCT Total # of Minutes Spent Total Time Spent with Patient: Total time spent is greater than 50% in coordination of care (as documented) at patient's floor/unit and/or counseling patient: Coding Level of Care Code 36662 INT INP/OBS CARE 2/55MIN Diagnoses SBO (small bowel obstruction) K56.609 Diarrhea R19.7 Asthma J45.909 Bipolar 1 disorder F31.9
[2023-01-24] MEDS ORDERED: PANTOprazole 40 MG in SYRINGE 0 ML IV ONE (18:38)
[2023-01-24] MEDS ORDERED: ACETAMINOPHEN 1,000 MG/100 ML VIAL IV STA (18:49)
[2023-01-24] MEDS ORDERED: LIDOCAINE 2% JELLY 5 ML TUBE EXT ONE (18:57)
[2023-01-24] MEDS ORDERED: KETOROLAC TROMETHAMINE 15 MG/ML VIAL IV STA (18:57)
[2023-01-24] MEDS ORDERED: LORazepam 2 MG/1 ML VIAL IV STA (19:43)
--- NOTE | 2023-01-24 20:38 | Surgery Consultation ---
Date of Consultation January 24, 2023 Assessment & Plan (1) SBO (small bowel obstruction): The patient has been admitted on the hospitalist service. From a surgical perspective we recommend the following: Implement n.p.o. status/bowel rest Provide IV fluid for hydration supplementing electrolyte deficiencies (potassium has been added to patient's intravenous fluid) Provide analgesics Provide antiemetics The patient has had an NG tube inserted and would recommend continuing this modality to low continuous suction. Consideration can be given to removing the NG tube once she has return of bowel function and further improvement of her abdominal symptomatology. Once her diet is able to be advanced would recommend beginning with clear liquids. There is underlying concern from patient's previous admission that she may have an element of inflammatory bowel disease. I discussed with the medical service and they are planning on reconsulting gastroenterology for further recommendations. In the interim, the medical service has implemented intravenous steroids and the patient's medication regimen. Protonix has been ordered for GI prophylaxis As the patient has noted some loose bowel movements appropriate stool studies have been ordered. Appropriate action will be undertaken once the results of the studies are noted Serial labs should be followed The patient is noted to have a leukocytosis and this could be due to the stress of her current presentation along with concomitant use of steroids. As noted the patient has had improvement of her symptomatology with decreased abdominal pain and decreased abdominal distention with the use of an NG tube. At this point in time it does not appear that surgical intervention is required on an emergent basis. Further recommendations will be made based on her clinical course as unfolds, pending studies, and recommendations from gastroenterology History of Present Illness Reason for Consultation: Small bowel obstruction History of Present Illness This is a 38-year-old female who had a recent admission to [facility]. She was admitted from 01/18/2023 through 01/21/2023. During this visit her primary diagnosis was small bowel obstruction. The patient did have a CT scan of the abdomen and pelvis performed on 01/18/2023. This showed findings compatible with a closed-loop small bowel obstruction. There is no evidence of pneumatosis intestinalis or additional evidence of bowel ischemia. The patient was seen in consultation by [facility] general surgery. The patient's CT scan noted above was reviewed with radiology and there was concern that patient had findings concerning for possible inflammatory bowel disease versus enteritis. The patient did not require surgical intervention but was treated in a conservative manner with NG tube, bowel rest, and intravenous fluids. In addition the patient was treated with intravenous steroids after consultation with gastroenterology was obtained. With these modalities the patient's small bowel obstruction improved and she began having bowel movements and her diet was advanced in the appropriate fashion and she was able to be discharged home. It is noteworthy to mention that the patient was to be followed up with gastroenterology as an outpatient for consideration of endoscopy to further evaluate for the possibility of inflammatory bowel disease. The patient was discharged home on oral prednisone, 40 mg daily and she was discussed the prednisone taper with gastroenterology at her follow-up appointment. According to the patient her follow-up appointment with gastroenterology was for 01/27/2023. In addition to this hospitalization it is noteworthy to mention that the patient had an emergency department visit on 01/12/2023 into 01/13/2023 secondary to nausea and vomiting. She did have a CT scan of the abdomen and pelvis performed on 01/12/2023. This showed the patient had some thickening of the small bowel in the pelvis consistent with an enteritis but no bowel obstruction was noted. Labs at this time included CBC her white blood cell count, hemoglobin, hematocrit, and platelet count were all within normal range. Her chemistry profile showed sodium was 138 with a potassium of 3.2. Her BUN and creatinine were both normal and there is no elevation of patient's LFTs or lipase at that time. test was noted to be negative at that time. A urinalysis was not indicative of infection. The patient was discharged home following this emergency department visit. The patient represented to the emergency department on 01/24/2023 secondary to increased abdominal pain along with nausea and vomiting. Patient notes that she was discharged from the hospital as noted above in the first day home she was doing well tolerating solid food and having bowel movements. She does note that her bowel movements were loose. Yesterday the patient began to experience increasing abdominal pain which persisted through the night into today. She did say she had 1 episode of emesis prior to arrival to the emergency department. She denies any fevers, shakes, or chills. She denies any bright blood per rectum or hematochezia. She does report that she has never had any abdominal surgeries. As noted above she was discharged home on oral steroids and she has been compliant with these medications. She notes that she has never had an upper or lower endoscopy before. The patient denies any weight loss. She denies any arthralgias or uveitis. She does report that she does have a paternal aunt that was diagnosed with Crohn's disease in her 50s. Since arrival to the hospital the patient has had an obstruction series. There is no evidence of pneumonia or pleural effusion on the chest portion of the study. The abdominal portion showed concern for high-grade small bowel obstruction. The patient also had a CT scan of the abdomen and pelvis. This again showed findings compatible with a small bowel obstruction without evidence of ischemia or perforation. There is no evidence of any closed-loop obstruction noted. The appendix was noted to be normal on this study. There not appear to be any pneumoperitoneum. Labs include a CBC her white blood cell count was elevated at 17.3. Hemoglobin and hematocrit were both normal and the platelet count was 512,000. Chemistry profile showed sodium was 133 with a potassium of 3.4. BUN and creatinine were both within normal range. There is no elevation of patient's LFTs. She had a slight elevation of lipase at 136 and a test was negative. Urinalysis was not indicative of infection. Since arrival to the emergency department the patient has had an NG tube inserted. She does note some improvement of her abdominal symptomatology with this modality. She was in no distress at the time of my interview. Allergies Allergy/AdvReac Type Severity Reaction Status Date / Time theophylline Allergy Severe NAUSEA Unverified 01/24/23 17:29 VOMITING hydrocodone [From Vicodin] Allergy Intermediate Nausea Unverified 01/24/23 17:29 Home Medications Medication Instructions Recorded Confirmed Type ondansetron 4 mg disintegrating 4 mg PO Q8H PRN nausea and 01/12/23 01/24/23 Rx tablet vomiting #30 tabs albuterol sulfate 90 mcg/actuation 2 puff inhalation Q6H PRN 01/19/23 01/24/23 History aerosol inhaler SOB/Wheezing bupropion HCl 150 mg 24 hr tablet, 150 mg PO QAM 01/19/23 01/24/23 History extended release fluticasone propionate 250 1 inh inhalation BID 01/19/23 01/24/23 History mcg/actuation blister powder for inhalation (Flovent Diskus) lamotrigine 100 mg tablet,extended See Rx Instructions .Route .COMPLEX 01/19/23 01/24/23 History release 24 hr lamotrigine 50 mg tablet,extended See Rx Instructions .Route .COMPLEX 01/19/23 01/24/23 History release 24 hr montelukast 10 mg tablet 10 mg PO HS 01/19/23 01/24/23 History venlafaxine 150 mg 150 mg PO QAM 01/19/23 01/24/23 History capsule,extended release 24 hr prednisone 20 mg tablet 40 mg PO DAILY 30 days #60 tabs 01/21/23 01/24/23 Rx Patient History Medical History No pertinent family history No pertinent past medical history Surgical History No pertinent past surgical history Social History Smoking Status: Never smoker Second Hand Exposure: No; Do You Dip or Chew Tobacco: No; Tobacco Cessation Education Requested by Patient: No Hx Alcohol Use: No Hx Substance Use: No Preferred Language: [place] Citizen Communication Ability: Effective Information Technology 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 Required: No Beliefs That Will Affect Care: None Current Living Situation: Spouse Current Living Situation Comment: split level, 15 stairs to upper level Other Information That Helps Us Care for You: No Feels Safe at Home: Yes Safety Concerns: Feels Safe At This Time Assistive Devices: None Review of Systems Constitutional: no fever and no chills Eyes: + corrective lenses Ear, Nose, Mouth, Throat: no hearing loss Respiratory: no cough and no dyspnea Cardiovascular: no chest pain Gastrointestinal: as per Subjective / HPI, + abdominal pain, + nausea and + vomiting Genitourinary: no dysuria Musculoskeletal: no back pain Integumentary: no rash Neurologic: no localized weakness Physical Exam Constitutional: WD/WN, vitals as above Eyes: no conjunctival abnormality Wears glasses ENMT: Ears: no hearing impairment and no external ear abnormality Mouth: no oropharynx abnormality Neck: trachea midline Respiratory: normal respiratory effort, lungs clear to auscultation Cardiovascular: Rate/Rhythm: regular rate and regular rhythm Vessels: dorsalis pedis pulses present and radial pulses present Gastrointestinal (Abdomen): Abdomen has hypoactive bowel sounds and mild distention at the time of my exam. There is some slight tympany to percussion. There is minimal pain with palpation at the time of my exam and there is no rebound tenderness or guarding. Of note, the patient has had an NG tube inserted since arrival to the emergency department and she does note that this has markedly improved her presenting s ymptomatology. Musculoskeletal: No calf tenderness Skin: no rashes Neurologic: moves all extremities Psychiatric: A+Ox3, euthymic affect Results & Data Vital Signs (Past 12 Hours) Vital Signs Temp Pulse Pulse Resp BP BP Pulse Ox 01/24/23 18:11 105 H 20 139/93 95 01/24/23 14:42 36.5 C 136 H 20 100/64 96 O2 Del Method 01/24/23 18:11 Room Air 01/24/23 14:42 Room Air PG Care Time/CCT Total # of Minutes Spent Total Time Spent with Patient: Total time spent is greater than 50% in coordination of care (as documented) at patient's floor/unit and/or counseling patient: Coding Level of Care Code 00493 IN/OBS CONSULT LVL 5,80M Diagnoses SBO (small bowel obstruction) K56.609
[2023-01-24 20:45] LABS: C Reactive Protein 2.67 mg/dl (0-0.5)
[2023-01-24] MEDS: methylPREDNISolone 40 MG in SYRINGE 0 ML IV SCH (21:43)
[2023-01-24] MEDS: NSS + 20MEQ KCL 20 MEQ/1,000 ML BAG IV SCH (21:43)
[2023-01-24] MEDS ORDERED: ACETAMINOPHEN 1,000 MG/100 ML VIAL IV PRN (23:41)
[2023-01-25] MEDS: NSS + 20MEQ KCL 20 MEQ/1,000 ML BAG IV SCH ×3 (04:56→20:14)
[2023-01-25] MEDS ORDERED: ALBUTEROL HFA 8 GM INHALER INH PRN (06:30)
--- NOTE | 2023-01-25 06:46 | Hospitalist Progress Note ---
Date of Service January 25, 2023 Assessment & Plan (1) SBO (small bowel obstruction): (2) Diarrhea: (3) Asthma: (4) Bipolar 1 disorder: Plan Patient is a 38-year-old female who presents to the hospital with small bowel obstruction and suspected inflammatory bowel disease. #Small bowel obstruction -Recurrent with surgically naive abdomen -Some concern for IBD previously - restart on Solu-medrol 40mg IV BID. -Consult surgery and GI -NPO, IV fluids, NG tube to low intermittent suction -Outpatient EGD and colonoscopy. -Start Medrol transition to prednisone taper upon discharge. #Diarrhea -Watery diarrhea is new since last admission -Stool and c. diff PCR negative. - May be overflow in setting of obstruction #Asthma -Continue Flovent, albuterol PRN -Hold all oral medications currently #Bipolar 1 disorder -Hold home medication -May need occasional lorazepam dosing for anxiety VTE Prophylaxis - Lovenox 40mg SQ daily, despite young age she has an acute inflammatory process of her abdomen and prolonged hospitalization therefore will give VTE prophylaxis Diet - NPO Disposition - admit to med/surg Admission and Anticipated Discharge Date Admission Date: January 24, 2023 Supervising Physician Co-Signing Physician Notes I personally examined the patient and verified all lynn points of history and exam, discussed case, and agree with decision making with Dr Chauhan Pain under reasonable control, nausea under reasonable control. Vitals noted, in general she is awake and alert pleasant no distress. HEENT normocephalic atraumatic mucous membranes moist. Breathing unlabored no accessory muscle use good effort. Skin shows no rashes no pallor or icterus. Neuro without focal deficits. SBOsurgically fredrick abdomensurgery and GI input appreciated. Continue NG drainage, IV fluids, pain control and nausea control as well as supportive care for now. Otherwise as above. Subjective Patient seen bedside this morning. She still is having abdominal pain. She has had some bowel movement though has mostly been liquid. Denies any nausea at this time. She is currently n.p.o. with NG tube in. Review of Systems Review of Systems: All systems reviewed & are unremarkable except as noted in Subjective Physical Exam Constitutional: well developed; no acute distress Respiratory: normal respiratory effort, lungs clear to auscultation Cardiovascular: RRR, no murmur, no edema Gastrointestinal (Abdomen): Inspection/Auscultation: normal bowel sounds Percussion/Palpation: + abdomen tender and abdomen soft Skin: no rashes, warm and dry Psychiatric: A+Ox3, euthymic affect Results & Data Results & Data Vital Signs (Past 12 Hours) Vital Signs Temp Pulse Resp BP Pulse Ox O2 Del Method 01/24/23 21:30 Room Air 01/24/23 21:30 37.4 C 101 H 16 130/86 98 Room Air Resident Activity Tracking Resident Involvement: Resident Care Provided Care Provided: Adult Hospital Medicine
[2023-01-25] MEDS: KETOROLAC TROMETHAMINE 15 MG/ML VIAL IV PRN ×2 (07:06→14:09)
[2023-01-25] MEDS: methylPREDNISolone 40 MG in SYRINGE 0 ML IV SCH ×2 (07:07→20:12)
[2023-01-25 07:35] LABS: Basophils # (auto) 0.03 K/uL (0.00-0.20); Basophils % (auto) 0.3 %; Eosinophils # (auto) 0.03 K/uL (0.00-0.50); Eosinophils % (auto) 0.3 %; Hematocrit (blood only) 31.5 % (37.0-47.0); Hemoglobin 10.9 g/dl (12.0-16.0); Immature Granulocytes # (auto) 0.07 K/uL (0.01-0.20); Immature Granulocytes % (auto) 0.6 %; Lymphocytes # (auto) 2.35 K/uL (1.20-3.40); Lymphocytes % (auto) 21.1 %; Mean Corpuscular Hemoglobin 31.1 pg (25.0-34.0); Mean Corpuscular Hgb Conc 34.6 g/dL (32.0-36.0); Mean Platelet Volume 10.1 fL (9.4-12.4); Monocytes % (auto) 14.3 %; Neutrophils # (auto) 7.08 K/uL (1.40-6.50); Neutrophils % (auto) 63.4 %; Platelet Count 437 K/uL (130-400); RDW Coefficient of Variation 12.1 % (11.5-14.5); White Blood Count 11.16 K/ul (4.8-10.8)
[2023-01-25 07:48] LABS: Albumin Globulin Ratio 1.7 (0.9-2); Albumin Level 3.3 gm/dl (3.4-5.0); BUN Creatinine Ratio 26.9 (10-20); Bilirubin,Total 0.5 mg/dl (0.2-1.0); Calcium 8.4 mg/dl (8.6-10.3); Creatinine Clr Calc Pharmacy 152.6 ml/min; Est GFR (African American) 139.5 ml/min; Est GFR (Non-African American) 120.4 ml/min; Globulin 1.9 gm/dl (2.5-4.0); Magnesium 2.3 mg/dl (1.7-2.4); Phosphorus 4.3 mg/dl (2.5-4.9); Total Protein 5.2 gm/dl (6.0-8.3)
[2023-01-25] MEDS: FLUTICASONE FUROATE 200MCG 14 PUFFS/INHALER INH SCH (09:15)
--- NOTE | 2023-01-25 09:30 | XRay Report ---
XR KUB/Abdomen 1 view CLINICAL HISTORY: NG tube placement TECHNIQUE: 1 view of the abdomen was obtained. Comparison: Comparison is made to chest and abdomen radiograph 01/24/2023 FINDINGS: Enteric tube terminates in the stomach. The osseous structures are grossly unremarkable. Multiple dis tended loops of small bowel measure up to 42 mm in diameter. A moderate amount of stool is noted with in the large bowel. IMPRESSION: Satisfactory position of enteric tube. Multiple dilated loops of small bowel are unchanged from prior exam compatible small bowel obstruction. ACT 112: Negative or not required by law. Electronically signed by: Chace Asif M.D. 01/25/2023 9:28 AM
--- NOTE | 2023-01-25 09:32 | Surgery Progress Note ---
Date of Service January 25, 2023 Assessment & Plan (1) SBO (small bowel obstruction): Plan: Continue NG tube for decompression Sips and chips ok otherwise NPO WBC 11.1 (17) continue IV fluids for hydration No surgical intervention indicated at this time Will continue to monitor As above. Had to moderate-sized bowel movement since this morning. She is feeling considerably better. We will repeat KUB tomorrow. May consider small bowel follow-through while NG tube is in place. Admission and Anticipated Discharge Date Admission Date: January 24, 2023 Subjective Patient sitting up resting in bed Reports mild nausea/abdominal discomfort Last BM yesterday reports was liquid Having sips and chips Review of Systems Constitutional: no fever, no chills and no sweats Respiratory: no dyspnea Cardiovascular: no chest pain Gastrointestinal: + abdominal pain, + nausea and + diarrhea/loose stools; no vomiting Physical Exam Physical Exam: alert oriented , tearful Constitutional: well developed, cooperative and comfortable; no acute distress Respiratory: normal respiratory effort and able to speak in complete sentences; no respiratory distress Cardiovascular: Rate/Rhythm: regular rate Gastrointestinal (Abdomen): Percussion/Palpation: + abdomen tender and abdomen soft; no guarding Results & Data Vital Signs (Past 12 Hours) Vital Signs Temp Pulse Resp BP Pulse Ox O2 Del Method 01/25/23 08:07 98.8 F 87 16 128/84 97 Room Air 01/24/23 21:30 Room Air 01/24/23 21:30 99.3 F 101 H 16 130/86 98 Room Air PG Care Time/CCT Total # of Minutes Spent Total Time Spent with Patient: Total time spent is greater than 50% in coordination of care (as documented) at patient's floor/unit and/or counseling patient: Coding Level of Care Code 70029 SUB INP/OBS CARE 2/35MIN Diagnoses SBO (small bowel obstruction) K56.609
[2023-01-25] MEDS: PANTOprazole 40 MG in SYRINGE 0 ML IV SCH (09:36)
--- NOTE | 2023-01-25 10:14 | Gastrointestinal Consultation ---
Date of Consultation January 25, 2023 Assessment & Plan (1) SBO (small bowel obstruction): -Continue IV Solumedrol 40 mg BID while inpatient with transition to po Prednisone taper upon discharge -Await C diff study to rule this out, however loose stool may just be related to acute process -Surgical consultation appreciated. They are managing NG tube. -Agree with previous GI plan for EGD & colonoscopy as planned for outpatient setting when acute SBO resolves. Supervising Physician Co-Signing Physician Notes Agree with CHEYANNE Juan as above Abd: Soft, NT, distended, minimal bowel sounds Continue current therapy and supportive care Will need EGD/Colonoscopy when SBO resolves. History of Present Illness Reason for Consultation: SBO, concern for IBD Attending Physician: Esvin Vernon DO History of Present Illness Patient is a 38 yo female with multiple recent admissions for a small bowel obstruction. She visited the ED with n/v on 01/12-01/13/23. A CT at that time questioned enteritis. She was discharged. She presented 01/18/23 with worsening symptoms and was admitted for SBO and required NG tube. She was seen by Veronica RUTHERFORD & Dr. Santillan of [facility] during that admission. Given no abdominal surgical issues, concern was for possible IBD as an underlying cause. She was started on Solumedrol, was to be discharged with a Prednisone taper, & was to have EGD & colonoscopy as an outpatient. She has a scheduled appointment with Veronica RUTHERFORD on 01/27/23. Shortly after discharge, she noted worsening of her nausea & vomiting despite minimal dietary intake. She returned to the ED on 01/24/[address] indicate a small bowel obstruction. She notes improvement with NG tube. She notes this has resolved her vomiting. She notes some loose stools. A C diff was ordered by primary hospitalist team. Solumedrol was restarted upon presentation to the hospital. CRP is >2. Allergies Allergy/AdvReac Type Severity Reaction Status Date / Time theophylline Allergy Severe NAUSEA Unverified 01/24/23 17:29 VOMITING hydrocodone [From Vicodin] Allergy Intermediate Nausea Unverified 01/24/23 17:29 Home Medications Medication Instructions Recorded Confirmed Type ondansetron 4 mg disintegrating 4 mg PO Q8H PRN nausea and 01/12/23 01/24/23 Rx tablet vomiting #30 tabs albuterol sulfate 90 mcg/actuation 2 puff inhalation Q6H PRN 01/19/23 01/24/23 History aerosol inhaler SOB/Wheezing bupropion HCl 150 mg 24 hr tablet, 150 mg PO QAM 01/19/23 01/24/23 History extended release fluticasone propionate 250 1 inh inhalation BID 01/19/23 01/24/23 History mcg/actuation blister powder for inhalation (Flovent Diskus) lamotrigine 100 mg tablet,extended See Rx Instructions .Route .COMPLEX 01/19/23 01/24/23 History release 24 hr lamotrigine 50 mg tablet,extended See Rx Instructions .Route .COMPLEX 01/19/23 01/24/23 History release 24 hr montelukast 10 mg tablet 10 mg PO HS 01/19/23 01/24/23 History venlafaxine 150 mg 150 mg PO QAM 01/19/23 01/24/23 History capsule,extended release 24 hr prednisone 20 mg tablet 40 mg PO DAILY 30 days #60 tabs 01/21/23 01/24/23 Rx Patient History Medical History No pertinent family history No pertinent past medical history Surgical History No pertinent past surgical history Social History Smoking Status: Never smoker Second Hand Exposure: No; Do You Dip or Chew Tobacco: No; Tobacco Cessation Education Requested by Patient: No Hx Alcohol Use: No Hx Substance Use: No Preferred Language: Lao Communication Ability: Effective 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 Required: No Beliefs That Will Affect Care: None Current Living Situation: Spouse Current Living Situation Comment: split level, 15 stairs to upper level Other Information That Helps Us Care for You: No Feels Safe at Home: Yes Safety Concerns: Feels Safe At This Time Assistive Devices: None Review of Systems Constitutional: no fever and no chills Respiratory: no cough and no dyspnea Cardiovascular: no chest pain Gastrointestinal: + nausea, + vomiting (improving) and + diarrhea/loose stools; no abdominal pain Physical Exam Constitutional: well developed Respiratory: normal respiratory effort Cardiovascular: Rate/Rhythm: regular rate Gastrointestinal (Abdomen): Inspection/Auscultation: + abdomen distended and + hypoactive bowel sounds Percussion/Palpation: abdomen nontender Psychiatric: Orientation: alert and oriented x 3 Results & Data Vital Signs (Past 12 Hours) Vital Signs Temp Pulse Resp BP Pulse Ox O2 Del Method 01/25/23 08:07 37.1 C 87 16 128/84 97 Room Air PG Care Time/CCT Total # of Minutes Spent Total Time Spent with Patient: Total time spent is greater than 50% in coordination of care (as documented) at patient's floor/unit and/or counseling patient: Coding Level of Care Code 86663 IN/OBS CONSULT LVL 4,60M Diagnoses SBO (small bowel obstruction) K56.609
--- NOTE | 2023-01-25 10:54 | XRay Report ---
KUB HISTORY: Small bowel obstruction SBO, NG tube placement (advanced 4cm from last XR) COMPARISON: 01/24/2023 FINDINGS: Mild retraction of the enteric tube, distal tip is directed over the [place] with grayson e-port in the distal esophagus. Persistent small bowel obstruction with dilated fluid-filled loops of small bowel measuring up to 5.9 cm, previously 5.2 cm. No renal calculi. No ureteral calculi. No pn eumoperitoneum or pneumatosis. No fracture. IMPRESSION: 1. Distal tip of enteric tube projects over the proximal stomach with side port within the distal eso phagus. 2. Persistent small bowel obstruction with stable to mildly progressed small bowel dilation. ACT 112: Negative or not required by law. The above report was generated using voice recognition software. It may contain grammatical, syntax o r spelling errors. Electronically signed by: Sina Bailey M.D. 01/25/2023 10:53 AM
[2023-01-25] MEDS ORDERED: DOCUSATE SODIUM 100 MG CAP PO SCH (12:15)
[2023-01-25] MEDS ORDERED: MoRPHine SULFATE 2 MG/ML CARP IV PRN (12:56)
[2023-01-25 15:55] LABS: Adenovirus F 40/41 PCR Not Detected (NotDetected); Astrovirus PCR Not Detected (NotDetected); Campylobacter PCR Not Detected (NotDetected); Cryptosporidium PCR Not Detected (NotDetected); Cyclospora cayetanensis PCR Not Detected (NotDetected); Entamoeba histolytica PCR Not Detected (NotDetected); Enteroaggregative E.coli(EAEC) Not Detected (NotDetected); Enteropathogenic E.coli (EPEC) Not Detected (NotDetected); Enterotoxigenic E.coli (ETEC) Not Detected (NotDetected); Giardia lamblia PCR Not Detected (NotDetected); Norovirus GI/GII PCR Not Detected (NotDetected); Plesiomonas shigelloides PCR Not Detected (NotDetected); Rotavirus A PCR Not Detected (NotDetected); Salmonella PCR Not Detected (NotDetected); Sapovirus PCR Not Detected (NotDetected); Shiga-like Toxin E.coli (STEC) Not Detected (NotDetected); Shigella/Enteroinvasive E.coli Not Detected (NotDetected); Vibrio cholerae PCR Not Detected (NotDetected); Vibrio species PCR Not Detected (NotDetected); Yersinia enterocolitica PCR Not Detected (NotDetected)
--- NOTE | 2023-01-25 18:06 | Billing Data ---
Date of Service January 25, 2023 Coding Level of Care Code 45583 SUB INP/OBS CARE
[2023-01-25] MEDS: ENOXAPARIN INJ 40 MG/0.4 ML SYR SQ SCH (20:12)
[2023-01-26] MEDS: NSS + 20MEQ KCL 20 MEQ/1,000 ML BAG IV SCH ×2 (03:52→11:55)
--- NOTE | 2023-01-26 07:03 | Hospitalist Progress Note ---
Date of Service January 26, 2023 Assessment & Plan (1) SBO (small bowel obstruction): (2) Diarrhea: (3) Asthma: (4) Bipolar 1 disorder: Plan Patient is a 38-year-old female who presents to the hospital with small bowel obstruction and suspected inflammatory bowel disease. #Small bowel obstruction -Recurrent with surgically naive abdomen -Some concern for IBD previously - restart on Solu-medrol 40mg IV BID, at time of discharge we will start her on a prednisone taper starting at 40 mg once a day for a week and decreasing by 5 mg each week. -Consult surgery and GI -Initially started NPO, IV fluids, NG tube to low intermittent suction -NG tube and IV fluids DC'd on 01/26. -Patient is having bowel movements, tolerating clears and is advancing her diet. -Outpatient EGD and colonoscopy. #Diarrhea -Watery diarrhea is new since last admission -Stool and c. diff PCR negative. -Stable at this time #Asthma -Continue Flovent, albuterol PRN -Restart montelukast. #Bipolar 1 disorder -Restarted home regimen on 01/26, given that patient has been not able to take them recently given her n.p.o. status and small bowel obstruction. -Continue lamotrigine, bupropion, and venlafaxine VTE Prophylaxis - Lovenox 40mg SQ daily, despite young age she has an acute inflammatory process of her abdomen and prolonged hospitalization therefore will give VTE prophylaxis Diet - NPO Disposition - admit to med/surg Admission and Anticipated Discharge Date Admission Date: January 24, 2023 Supervising Physician Co-Signing Physician Notes I personally examined the patient and verified all lynn points of history and exam, discussed case, and agree with decision making with Dr Chauhan has been tolerating Clear liquids without any belly pain. No nausea and vomiting. NG tube has been off of suction since last night. NG tube really bothering her. Vitals noted, in general she is awake and alert pleasant no distress. HEENT normocephalic atraumatic mucous membranes moist. Abdomen soft nondistended nontender no masses organomegaly no guarding rebound or rigidity. SBOconcern on inflammatory bowel diseasebut acutely is improving. DC NG tube, continue clear liquids, hopefully can advance again soon. Otherwise as above. Subjective Patient seen bedside this morning. Pain is getting better since yesterday. Having bowel movements. Tolerated clear liquid diet Review of Systems Review of Systems: All systems reviewed & are unremarkable except as noted in Subjective Physical Exam Constitutional: well developed; no acute distress Respiratory: normal respiratory effort, lungs clear to auscultation Cardiovascular: RRR, no murmur, no edema Gastrointestinal (Abdomen): Inspection/Auscultation: normal bowel sounds Percussion/Palpation: + abdomen tender and abdomen soft Musculoskeletal: no cyanosis or clubbing, extremities motor strength 5/5 Skin: no rashes, warm and dry Psychiatric: A+Ox3, euthymic affect Results & Data Results & Data Vital Signs (Past 12 Hours) Vital Signs Temp Pulse Resp BP Pulse Ox O2 Del Method 01/25/23 21:08 37.2 C 83 16 131/84 96 Room Air Resident Activity Tracking Resident Involvement: Resident Care Provided Care Provided: Adult Hospital Medicine
--- NOTE | 2023-01-26 07:22 | XRay Report ---
KUB HISTORY: Acute generalized abdominal pain with reported small bowel obstruction sbo COMPARISON: 01/25/2023 FINDINGS: Distal tip of enteric tube projects over the proximal stomach with side port within the dis rich esophagus. There is decreased small bowel distention compared to the prior study with small bowel loops now measuring up to approximately 4 cm, previously 5.9 cm. Air is also noted within the large bowel. Moderate colonic fecal retention. No renal calculi. No ureteral calculi. No pneumoperitoneum or pneumatosis. No fracture. IMPRESSION: 1. Distal tip of enteric tube within the stomach. 2. Resolving small bowel obstruction. ACT 112: Negative or not required by law. The above report was generated using voice recognition software. It may contain grammatical, syntax o r spelling errors. Electronically signed by: Sina Bailey M.D. 01/26/2023 7:21 AM
[2023-01-26 07:52] LABS: Hematocrit (blood only) 35.9 % (37.0-47.0); Hemoglobin 12.1 g/dl (12.0-16.0); Mean Corpuscular Hemoglobin 31.3 pg (25.0-34.0); Mean Corpuscular Hgb Conc 33.7 g/dL (32.0-36.0); Mean Platelet Volume 10.8 fL (9.4-12.4); Platelet Count 395 K/uL (130-400); RDW Standard Deviation 40.3 fL (36.4-46.3); Red Blood Count 3.86 M/uL (4.20-5.40); White Blood Count 8.91 K/ul (4.8-10.8)
[2023-01-26 08:27] LABS: Albumin Globulin Ratio 1.6 (0.9-2); Albumin Level 3.6 gm/dl (3.4-5.0); BUN Creatinine Ratio 16.3 (10-20); Bilirubin,Total 0.5 mg/dl (0.2-1.0); C Reactive Protein 1.94 mg/dl (0-0.5); Calcium 8.7 mg/dl (8.6-10.3); Creatinine Clr Calc Pharmacy 161.9 ml/min; Est GFR (African American) 142.2 ml/min; Est GFR (Non-African American) 122.7 ml/min; Globulin 2.2 gm/dl (2.5-4.0); Potassium 3.9 mmol/L (3.5-5.1); Total Protein 5.8 gm/dl (6.0-8.3)
[2023-01-26] MEDS: FLUTICASONE FUROATE 200MCG 14 PUFFS/INHALER INH SCH (10:19)
[2023-01-26] MEDS: methylPREDNISolone 40 MG in SYRINGE 0 ML IV SCH ×2 (10:21→20:34)
[2023-01-26] MEDS: PANTOprazole 40 MG in SYRINGE 0 ML IV SCH (10:21)
--- NOTE | 2023-01-26 13:49 | Surgery Progress Note ---
Date of Service January 26, 2023 Assessment & Plan (1) SBO (small bowel obstruction): Plan: Patient sitting up in bed Denies abdominal pain, N/V Having BMs and passing flatus Reports that she has not been able to take her depression medication or asthma medication since she was NPO Ordered patients home Bupropion, Venlafaxine, and Montelukast. Medicine aware. Tolerating clears will advance to fulls , patient agreed , reports feeling hesitant on eating regular food as last time she went home and had to come back in. VSS mood appropriate for situation Will continue to monitor Admission and Anticipated Discharge Date Admission Date: January 24, 2023 Subjective Patient sitting up in bed Denies abdominal pain, N/V Having BMs and passing flatus Reports that she has not been able to take her depression medication or asthma medication since she was NPO Review of Systems Constitutional: no fever, no chills and no sweats Respiratory: no dyspnea Cardiovascular: no chest pain Gastrointestinal: no abdominal pain, no bloating, no nausea and no vomiting Physical Exam Constitutional: well developed, cooperative and comfortable; no acute distress Respiratory: normal respiratory effort and able to speak in complete sentences; no respiratory distress Cardiovascular: Rate/Rhythm: regular rate Gastrointestinal (Abdomen): Inspection/Auscultation: abdomen normal to inspection Percussion/Palpation: abdomen soft; abdomen nontender and no guarding Psychiatric: Orientation: alert and oriented x 3 Apperance: appropriately dressed Results & Data Vital Signs (Past 12 Hours) Vital Signs Temp Pulse Resp BP BP Pulse Ox O2 Del Method 01/26/23 11:01 98.4 F 87 14 124/84 99 Room Air 01/26/23 07:53 99.0 F 79 12 128/75 99 Room Air PG Care Time/CCT Total # of Minutes Spent Total Time Spent with Patient: Total time spent is greater than 50% in coordination of care (as documented) at patient's floor/unit and/or counseling patient: Coding Level of Care Code 65408 SUB INP/OBS CARE 04/27MIN Diagnoses SBO (small bowel obstruction) K56.609
--- NOTE | 2023-01-26 14:20 | Electrocardiogram Report ---
Test Reason : Blood Pressure : / mmHG Vent. Rate : 123 BPM Atrial Rate : 123 BPM P-R Int : 116 ms QRS Dur : 076 ms QT Int : 246 ms P-R-T Axes : 084 078 -88 degrees QTc Int : 352 ms Sinus tachycardia Biatrial enlargement Abnormal ECG When compared with ECG of 18-JAN-2023 13:10, T wave inversion more evident in Inferolateral leads Confirmed by Ricky Rodriguez ([id number]) on 01/26/2023 2:19:54 PM Referred By: Confirmed By:Ricky Rodriguez
--- NOTE | 2023-01-26 17:18 | Billing Data ---
Date of Service January 26, 2023 Coding Level of Care Code 40840 SUB INP/OBS CARE
[2023-01-26] MEDS: ENOXAPARIN INJ 40 MG/0.4 ML SYR SQ SCH (20:33)
[2023-01-26] MEDS: MONTELUKAST SODIUM 10 MG TABLET PO SCH (20:34)
[2023-01-26] MEDS: lamoTRIgine 100 MG TAB PO SCH (20:36)
[2023-01-27] MEDS: buPROPion HCl 75 MG TABLET PO SCH (06:12)
[2023-01-27] MEDS: VENLAFAXINE HCL 50 MG TAB PO SCH (06:12)
--- NOTE | 2023-01-27 08:07 | Hospitalist Progress Note ---
Date of Service January 27, 2023 Assessment & Plan (1) SBO (small bowel obstruction): (2) Diarrhea: (3) Asthma: (4) Bipolar 1 disorder: Plan Patient is a 38-year-old female who presents to the hospital with small bowel obstruction and suspected inflammatory bowel disease. #Small bowel obstruction -Recurrent with surgically naive abdomen -Some concern for IBD previously - restart on Solu-medrol 40mg IV BID, at time of discharge we will start her on a prednisone taper starting at 40 mg once a day for a week and decreasing by 5 mg each week. -Consult surgery and GI -Initially started NPO, IV fluids, NG tube to low intermittent suction -NG tube and IV fluids DC'd on 01/26. -Patient is having bowel movements, advancing diet slowly given the patient was just readmitted. -Outpatient EGD and colonoscopy. -Zofran as needed for nausea #Diarrhea -Watery diarrhea is new since last admission -Stool and c. diff PCR negative. -Stable at this time #Asthma -Continue Flovent, albuterol PRN -Restart montelukast. #Bipolar 1 disorder -Restarted home regimen on 01/26, given that patient has been not able to take them recently given her n.p.o. status and small bowel obstruction. -Continue lamotrigine, bupropion, and venlafaxine VTE Prophylaxis - Lovenox 40mg SQ daily, despite young age she has an acute inflammatory process of her abdomen and prolonged hospitalization therefore will give VTE prophylaxis Diet -full liquid, advance as tolerated Disposition - admit to med/surg Admission and Anticipated Discharge Date Admission Date: January 24, 2023 Supervising Physician Co-Signing Physician Notes I personally examined the patient and verified all lynn points of history and exam, discussed case, and agree with decision making with Dr Chauhan overall tolerating liquids welldid vomit a little bit this morning, but otherwise feeling okay. Vitals noted, in general she is awake and alert pleasant no distress. HEENT normocephalic atraumatic mucous membranes moist. Abdomen soft nondistended nontender no masses organomegaly no guarding rebound or rigidity. SBOconcern on inflammatory bowel diseasebut acutely is improving. Slowly advancing dietscope is scheduled for I believe 02/07. continue steroids Subjective Patient was seen bedside this AM. She had some pressure and abdominal pain epigastrically overnight and had a episode of vomiting. She was given some Zofran this morning and was seen after Zofran. She denies any further epigastric pain or nausea. States otherwise she is doing well and able to eat and has had bowel movements in significant quantities. Review of Systems Review of Systems: All systems reviewed & are unremarkable except as noted in Subjective Physical Exam Constitutional: well developed; no acute distress Respiratory: normal respiratory effort, lungs clear to auscultation Cardiovascular: RRR, no murmur, no edema Gastrointestinal (Abdomen): Inspection/Auscultation: normal bowel sounds Percussion/Palpation: + abdomen tender and abdomen soft Musculoskeletal: no cyanosis or clubbing, extremities motor strength 5/5 Skin: no rashes, warm and dry Psychiatric: A+Ox3, euthymic affect Results & Data Results & Data Vital Signs (Past 12 Hours) Vital Signs Temp Pulse Resp BP Pulse Ox O2 Del Method 01/27/23 07:10 36.9 C 78 18 147/89 H 97 Room Air 01/27/23 00:10 37.5 C 84 16 122/87 99 Room Air 01/26/23 22:59 Room Air Resident Activity Tracking Resident Involvement: Resident Care Provided Care Provided: Adult Hospital Medicine
[2023-01-27] MEDS: ONDANSETRON INJ 2 MG/ML 2 ML VIAL IV PRN ×2 (08:37→14:15)
[2023-01-27] MEDS: lamoTRIgine 100 MG TAB PO SCH ×2 (08:39→20:16)
[2023-01-27] MEDS: methylPREDNISolone 40 MG in SYRINGE 0 ML IV SCH ×2 (08:40→20:15)
[2023-01-27] MEDS: FLUTICASONE FUROATE 200MCG 14 PUFFS/INHALER INH SCH (08:40)
--- NOTE | 2023-01-27 09:27 | Surgery Progress Note ---
Date of Service January 27, 2023 Assessment & Plan (1) SBO (small bowel obstruction): Plan: Patient sitting up in bed Denies abdominal pain, report some lower quadrant tenderness Having BMs and passing flatus states that she threw up a scant amount of stomach juices this AM after feeling mild nausea Denies feeling sick currently Will keep on Full liquids VSS other than elevated BP Admission and Anticipated Discharge Date Admission Date: January 24, 2023 Subjective Patient sitting up in bed Denies abdominal pain, report some lower quadrant tenderness Having BMs and passing flatus states that she threw up a scant amount of stomach juices this AM after feeling mild nausea Denies feeling sick currently Review of Systems Constitutional: no fever, no chills and no sweats Eyes: + corrective lenses Respiratory: no dyspnea Cardiovascular: no chest pain Gastrointestinal: + abdominal pain (tenderness ), + nausea and + vomiting Genitourinary: + dysuria; no problem reported Physical Exam Physical Exam: alert oriented , tearful Constitutional: well developed, cooperative and comfortable; no acute distress Respiratory: normal respiratory effort and able to speak in complete sentences; no respiratory distress Cardiovascular: Rate/Rhythm: regular rate Gastrointestinal (Abdomen): Inspection/Auscultation: abdomen normal to inspection Percussion/Palpation: + abdomen tender and abdomen soft; no guarding Psychiatric: Orientation: alert and oriented x 3 Apperance: appropriately dressed Results & Data Vital Signs (Past 12 Hours) Vital Signs Temp Pulse Resp BP Pulse Ox O2 Del Method 01/27/23 07:10 98.4 F 78 18 147/89 H 97 Room Air 01/27/23 00:10 99.5 F 84 16 122/87 99 Room Air 01/26/23 22:59 Room Air PG Care Time/CCT Total # of Minutes Spent Total Time Spent with Patient: Total time spent is greater than 50% in coordination of care (as documented) at patient's floor/unit and/or counseling patient: Coding Level of Care Code 24837 SUB INP/OBS CARE 04/27MIN Diagnoses SBO (small bowel obstruction) K56.609
[2023-01-27] MEDS: PANTOprazole 40 MG in SYRINGE 0 ML IV SCH (12:15)
--- NOTE | 2023-01-27 18:21 | Billing Data ---
Date of Service January 27, 2023 Coding Level of Care Code 95641 SUB INP/OBS CARE
[2023-01-27] MEDS: ENOXAPARIN INJ 40 MG/0.4 ML SYR SQ SCH (20:15)
[2023-01-27] MEDS: MONTELUKAST SODIUM 10 MG TABLET PO SCH (20:15)
[2023-01-28] MEDS: ONDANSETRON INJ 2 MG/ML 2 ML VIAL IV PRN ×2 (03:54→15:12)
[2023-01-28] MEDS: buPROPion HCl 75 MG TABLET PO SCH ×2 (06:18→07:57)
[2023-01-28] MEDS: VENLAFAXINE HCL 50 MG TAB PO SCH ×2 (06:18→07:56)
[2023-01-28] MEDS: KETOROLAC TROMETHAMINE 15 MG/ML VIAL IV PRN (06:19)
--- NOTE | 2023-01-28 06:52 | Hospitalist Progress Note ---
Date of Service January 28, 2023 Assessment & Plan (1) SBO (small bowel obstruction): (2) Diarrhea: (3) Asthma: (4) Bipolar 1 disorder: (5) Constipation: Plan Patient is a 38-year-old female who presents to the hospital with small bowel obstruction and suspected inflammatory bowel disease. #Small bowel obstruction -Recurrent with surgically naive abdomen -Some concern for IBD previously - restart on Solu-medrol 40mg IV BID, due to losing IV access we will transition to prednisone 40 mg every morning starting on 01/29. -Will do a taper starting at 40 mg and decreasing by 5 mg every week for a total of 8 weeks of therapy. -Consult surgery and GI -Initially started NPO, IV fluids, NG tube to low intermittent suction -NG tube and IV fluids DC'd on 01/26. -Patient is having bowel movements, advancing diet slowly given the patient was just readmitted. -Outpatient EGD and colonoscopy. -Zofran as needed for nausea -Patient may have some underlying GERD as well that is contributing to her epigastric pain and nausea. Receiving IV Protonix. We will switch to p.o. P rotonix starting on 01/29 #Constipation -Given the patient is able to have a bowel movement with her small bowel obstruction we will add on MiraLAX twice daily at this time. -We will continue to monitor with serial exams. #Diarrhea -Watery diarrhea is new since last admission -Stool and c. diff PCR negative. -Stable at this time #Asthma -Continue Flovent, albuterol PRN -Restart montelukast. #Bipolar 1 disorder -Restarted home regimen on 01/26, given that patient has been not able to take them recently given her n.p.o. status and small bowel obstruction. -Continue lamotrigine, bupropion, and venlafaxine VTE Prophylaxis - Lovenox 40mg SQ daily, despite young age she has an acute inflammatory process of her abdomen and prolonged hospitalization therefore will give VTE prophylaxis Diet -full liquid, advance as tolerated Disposition - admit to med/surg Admission and Anticipated Discharge Date Admission Date: January 24, 2023 Supervising Physician Co-Signing Physician Notes I personally examined the patient and verified all lynn points of history and exam, discussed case, and agree with decision making with Dr Chauhan had some nausea but thought maybe indigestion. feeling fairly well otherwise when i saw her this AM and was anxious to try regular food. later informed worse pain/nausea. Vitals noted, in general she is awake and alert pleasant no distress. HEENT normocephalic atraumatic mucous membranes moist. Abdomen soft nondistended nontender no masses organomegaly no guarding rebound or rigidity. SBOconcern on inflammatory bowel diseaseseems to have worsened after advance in diet - ?all SBO (but f/u KUB this afternoon reassuring) vs multifactorial (resolving SBO, possible baseline crohns, possible indigestion and constipation)scope is scheduled for I believe 02/07. continue steroids - diet regressed. ongoing supportive/symptomatic care Subjective Patient was seen bedside this morning. States overnight she had some epigastric pain and some nausea. Zofran helped. She has been having bowel movements since admitted though has not had 1 in approximately 12-adrien hours. She is passing gas. No issues or complaints at this time. She would like to continue to advance her diet. She also complains of some constipation. Review of Systems Review of Systems: All systems reviewed & are unremarkable except as noted in Subjective Physical Exam Constitutional: well developed; no acute distress Respiratory: normal respiratory effort, lungs clear to auscultation Cardiovascular: RRR, no murmur, no edema Gastrointestinal (Abdomen): Inspection/Auscultation: normal bowel sounds Percussion/Palpation: + abdomen tender (Epigastric) and abdomen soft Musculoskeletal: no cyanosis or clubbing, extremities motor strength 5/5 Skin: no rashes, warm and dry Psychiatric: A+Ox3, euthymic affect Results & Data Results & Data Vital Signs (Past 12 Hours) Vital Signs Temp Pulse Resp BP Pulse Ox O2 Del Method 01/27/23 22:15 Room Air 01/27/23 21:48 37.1 C 77 18 126/90 97 Room Air Resident Activity Tracking Resident Involvement: Resident Care Provided Care Provided: Adult Hospital Medicine
[2023-01-28] MEDS: FLUTICASONE FUROATE 200MCG 14 PUFFS/INHALER INH SCH (07:57)
[2023-01-28] MEDS: methylPREDNISolone 40 MG in SYRINGE 0 ML IV SCH (07:58)
[2023-01-28] MEDS: lamoTRIgine 100 MG TAB PO SCH ×2 (07:58→21:42)
--- NOTE | 2023-01-28 10:07 | Surgery Progress Note ---
Date of Service January 28, 2023 Assessment & Plan (1) Abdominal pain: Plan: Etiology still unclear but improving. There are no surgical indications at this time. We will sign off please call if there are any questions or concerns. Admission and Anticipated Discharge Date Admission Date: January 24, 2023 Subjective Patient seen. She is definitely feeling much better. She took a shower this morning and this is the best she has looked. Currently only minimal abdominal discomfort. She is tolerating her diet Physical Exam Constitutional: WD/WN, vitals as above no acute distress and not ill appearing Eyes: PERRL, conjunctivae normal, anicteric sclerae EOM intact bilaterally ENMT: external ear and nose normal, oropharynx normal Ears: no hearing impairment Neck: trachea midline, no thyromegaly Respiratory: normal respiratory effort; no respiratory distress and does not use accessory muscles Cardiovascular: Rate/Rhythm: regular rate and regular rhythm Gastrointestinal (Abdomen): Soft. Minimal tenderness. Dramatically improved since admission Skin: no rashes, warm and dry Psychiatric: Orientation: alert, oriented x 3 and cooperative Results & Data Vital Signs (Past 12 Hours) Vital Signs Temp Pulse Resp BP Pulse Ox O2 Del Method 01/28/23 07:45 36.8 C 83 18 118/70 99 Room Air 01/28/23 08:28 Room Air 01/27/23 22:15 Room Air PG Care Time/CCT Total # of Minutes Spent Total Time Spent with Patient: Total time spent is greater than 50% in coordination of care (as documented) at patient's floor/unit and/or counseling patient: Coding Level of Care Code 16767 SUB INP/OBS CARE 2/35MIN Diagnoses Abdominal pain R10.9
[2023-01-28] MEDS ORDERED: POLYETHYLENE (MIRALAX) 17 GM PACK PO SCH (10:30)
[2023-01-28] MEDS: PANTOprazole 40 MG in SYRINGE 0 ML IV SCH (11:38)
[2023-01-28] MEDS ORDERED: ONDANSETRON 4 MG OD TAB PO PRN (12:49)
[2023-01-28] MEDS ORDERED: KETOROLAC TROMETHAMINE 10 MG TABLET PO PRN (12:52)
[2023-01-28] MEDS: MoRPHine SULFATE 2 MG/ML CARP IV PRN ×2 (14:42→21:05)
--- NOTE | 2023-01-28 16:00 | XRay Report ---
KUB HISTORY: Acute abdominal pain with small bowel obstruction f/u SBO worsening pain COMPARISON: 01/26/2023 FINDINGS: Nonobstructive bowel gas pattern. Interval removal of the enteric tube. Moderate colonic fe david retention. No renal calculi. No ureteral calculi. No pneumoperitoneum or pneumatosis. Mild lumba r levoscoliosis. No fracture. IMPRESSION: Interval removal of the enteric tube. No radiographic evidence of small bowel obstruction on today's study. ACT 112: Negative or not required by law. The above report was generated using voice recognition software. It may contain grammatical, syntax o r spelling errors. Electronically signed by: Sina Bailey M.D. 01/28/2023 3:58 PM
[2023-01-28] MEDS ORDERED: FAMOTIDINE 40 MG TABLET PO ONE (16:50)
[2023-01-28] MEDS ORDERED: ACETAMINOPHEN 1,000 MG/100 ML VIAL IV PRN (16:50)
[2023-01-28] MEDS ORDERED: KETOROLAC TROMETHAMINE 15 MG/ML VIAL IV PRN (16:50)
[2023-01-28] MEDS ORDERED: MoRPHine SULFATE 2 MG/ML CARP IV STA (16:50)
[2023-01-28] MEDS ORDERED: KETOROLAC TROMETHAMINE 15 MG/ML VIAL IV ONE (16:50)
[2023-01-28] MEDS ORDERED: ACETAMINOPHEN 1,000 MG/100 ML VIAL IV STA (16:50)
[2023-01-28] MEDS ORDERED: PROMETHAZINE HCL INJ 25 MG/ML 1 ML VIAL IM PRN (17:10)
[2023-01-28] MEDS ORDERED: PROMETHAZINE HCL INJ 25 MG/ML 1 ML VIAL IM STA (17:10)
[2023-01-28] MEDS ORDERED: ONDANSETRON INJ 2 MG/ML 2 ML VIAL IV STA (18:39)
--- NOTE | 2023-01-28 18:58 | Billing Data ---
Date of Service January 28, 2023 Coding Level of Care Code 69509 SUB INP/OBS CARE MIN
[2023-01-28] MEDS: ENOXAPARIN INJ 40 MG/0.4 ML SYR SQ SCH (21:31)
[2023-01-28] MEDS: FAMOTIDINE 20 MG TAB PO SCH (21:41)
[2023-01-28] MEDS: MONTELUKAST SODIUM 10 MG TABLET PO SCH (21:42)
[2023-01-29] MEDS: VENLAFAXINE HCL XR 150 MG CAPXR PO SCH (06:22)
[2023-01-29] MEDS: buPROPion XL 150 MG TABCR PO SCH (06:22)
--- NOTE | 2023-01-29 07:31 | Hospitalist Progress Note ---
Date of Service January 29, 2023 Assessment & Plan (1) SBO (small bowel obstruction): (2) Diarrhea: (3) Asthma: (4) Bipolar 1 disorder: (5) Constipation: Plan Patient is a 38-year-old female who presents to the hospital with small bowel obstruction and suspected inflammatory bowel disease. #Small bowel obstruction -Recurrent with surgically naive abdomen -Some concern for IBD previously - restart on Solu-medrol 40mg IV BID, due to losing IV access we will transition to prednisone 40 mg every morning starting on 01/29. -Will do a taper starting at 40 mg and decreasing by 5 mg every week for a total of 8 weeks of therapy. -Consult surgery and GI -Initially started NPO, IV fluids, NG tube to low intermittent suction -NG tube and IV fluids DC'd on 01/26. -Patient is having bowel movements, advancing diet slowly given the patient was just readmitted. -Outpatient EGD and colonoscopy. -Zofran as needed for nausea -Patient may have some underlying GERD as well that is contributing to her epigastric pain and nausea. Receiving IV Protonix. We will switch to p.o. P rotonix starting on 01/29. -Patient continues to struggle with advancing diet. Abdominal KUB from 01/28 showed no obstruction. -Given that patient has been struggling with advancing diet, will order small bowel follow-through. N.p.o. at midnight for schedule imaging in the a.m. #Constipation -Given the patient is able to have a bowel movement with her small bowel obstruction, given 2 doses of MiraLAX. -We will continue to monitor with serial exams. #Diarrhea -Watery diarrhea is new since last admission -Stool and c. diff PCR negative. -Stable at this time #Asthma -Continue Flovent, albuterol PRN -Restart montelukast. #Bipolar 1 disorder -Restarted home regimen on 01/26, given that patient has been not able to take them recently given her n.p.o. status and small bowel obstruction. -Continue lamotrigine, bupropion, and venlafaxine VTE Prophylaxis - Lovenox 40mg SQ daily, despite young age she has an acute inflammatory process of her abdomen and prolonged hospitalization therefore will give VTE prophylaxis Diet -full liquid, advance as tolerated Disposition - admit to med/surg Admission and Anticipated Discharge Date Admission Date: January 24, 2023 Supervising Physician Co-Signing Physician Notes I personally examined the patient and verified all lynn points of history and exam, discussed case, and agree with decision making with Dr Chauhan ate solid foods and then felt dramatically worse for most of the night. Feels better now having regressed to clears. Father present at the bedside, retired pathologist. Answered all questions the best my ability and to his satisfaction. Vitals noted, in general she is awake and alert pleasant no distress. HEENT normocephalic atraumatic mucous membranes moist. breathing unlabored no accessory muscle use good effort. Skin without rashes pallor or icterus. Neuro without focal deficits. SBO Worsened again fairly dramatically after retrying solid foods. This appears to be what happened previously as wellwhere she had appearance of SBO, went home, and quickly rebounded with recurrence of symptoms. Given that she cannot really tolerate any meaningful p.o. intake, will will need to try to get to the bottom of the etiology while she is here, rather than advance diet/supportive care and then work-up the etiology as an outpatient. I have messaged to gastroenterology for further input and possible considerations for scopes. Resident physician and I debated repeat CT, but this time with oral contrast versus small bowel follow-through, and given that we do have multiple CT images of her abdomen, but the main thing missing radiographically would be o utlining her intestines, we felt as the next step the small bowel follow-through may provide better data. Continue symptom control and supportive care, liquid diet for now. Subjective Patient seen bedside this morning. She states that she is feeling better than yesterday. She has some episodes of nausea, vomiting, and abdominal pain yesterday with solid foods. Had to be reverted back to clear liquids. She is no longer having any nausea, vomiting, or abdominal pain. She does state though that she has not had a bowel movement for the past day. Review of Systems Review of Systems: All systems reviewed & are unremarkable except as noted in Subjective Physical Exam Constitutional: well developed; no acute distress Respiratory: normal respiratory effort, lungs clear to auscultation Cardiovascular: RRR, no murmur, no edema Gastrointestinal (Abdomen): normal bowel sounds, soft, nontender, no hep atosplenomegaly Musculoskeletal: no cyanosis or clubbing, extremities motor strength 5/5 Skin: no rashes, warm and dry Psychiatric: A+Ox3, euthymic affect Results & Data Results & Data Vital Signs (Past 12 Hours) Vital Signs Temp Pulse Resp BP Pulse Ox O2 Del Method 01/28/23 21:33 36.8 C 80 18 147/98 H 97 Room Air Resident Activity Tracking Resident Involvement: Resident Care Provided Care Provided: Adult Hospital Medicine
[2023-01-29] MEDS: lamoTRIgine 100 MG TAB PO SCH ×2 (08:25→21:07)
[2023-01-29] MEDS: FAMOTIDINE 20 MG TAB PO SCH ×2 (08:34→21:07)
[2023-01-29] MEDS: PANTOprazole 40 MG TAB PO SCH (08:35)
[2023-01-29] MEDS: FLUTICASONE FUROATE 200MCG 14 PUFFS/INHALER INH SCH (08:36)
[2023-01-29] MEDS: predniSONE 20 MG TAB PO SCH (08:36)
[2023-01-29 09:11] LABS: Hematocrit (blood only) 37.6 % (37.0-47.0); Hemoglobin 12.4 g/dl (12.0-16.0); Mean Corpuscular Hemoglobin 30.7 pg (25.0-34.0); Mean Corpuscular Volume 93.1 fL (80.0-100.0); Platelet Count 555 K/uL (130-400); RDW Coefficient of Variation 12.5 % (11.5-14.5); RDW Standard Deviation 41.9 fL (36.4-46.3); Red Blood Count 4.04 M/uL (4.20-5.40); White Blood Count 12.73 K/ul (4.8-10.8)
[2023-01-29] MEDS ORDERED: POLYETHYLENE (MIRALAX) 17 GM PACK PO ONE (09:23)
[2023-01-29 09:31] LABS: Albumin Globulin Ratio 1.5 (0.9-2); Albumin Level 3.9 gm/dl (3.4-5.0); BUN Creatinine Ratio 8.8 (10-20); Bilirubin,Total 0.4 mg/dl (0.2-1.0); Calcium 9.6 mg/dl (8.6-10.3); Creatinine Clr Calc Pharmacy 116.7 ml/min; Est GFR (African American) 127.7 ml/min; Est GFR (Non-African American) 110.2 ml/min; Globulin 2.6 gm/dl (2.5-4.0); Total Protein 6.5 gm/dl (6.0-8.3)
[2023-01-29] MEDS: ONDANSETRON INJ 2 MG/ML 2 ML VIAL IV PRN (13:58)
--- NOTE | 2023-01-29 20:05 | Billing Data ---
Date of Service January 29, 2023 Coding Level of Care Code 14021 SUB INP/OBS CARE MIN
[2023-01-29] MEDS: ENOXAPARIN INJ 40 MG/0.4 ML SYR SQ SCH (21:07)
[2023-01-29] MEDS: MONTELUKAST SODIUM 10 MG TABLET PO SCH (21:07)
[2023-01-29] MEDS ORDERED: FLUTICASONE FUROATE 200MCG 14 PUFFS/INHALER INH ONE (22:50)
[2023-01-30] MEDS: SODIUM CHLORIDE 0.9% 1,000 ML IV SCH ×2 (00:45→14:10)
[2023-01-30] MEDS: buPROPion XL 150 MG TABCR PO SCH (05:30)
[2023-01-30] MEDS: VENLAFAXINE HCL XR 150 MG CAPXR PO SCH (05:30)
--- NOTE | 2023-01-30 07:05 | Hospitalist Progress Note ---
Date of Service January 30, 2023 Assessment & Plan (1) SBO (small bowel obstruction): (2) Diarrhea: (3) Asthma: (4) Bipolar 1 disorder: (5) Constipation: Plan Patient is a 38-year-old female who presents to the hospital with small bowel obstruction and suspected inflammatory bowel disease. #Small bowel obstruction -Recurrent with surgically naive abdomen -Some concern for IBD previously -initially started on Solu-medrol 40mg IV BID, transition to prednisone 40 mg every morning starting on 01/29. -Will do a taper starting at 40 mg and decreasing by 5 mg every week for a total of 8 weeks of therapy per recommendations from GI. -Consult surgery and GI -Initially started NPO, IV fluids, NG tube to low intermittent suction -NG tube and IV fluids DC'd on 01/26. -Patient is having bowel movements, advancing diet slowly given the patient was just readmitted. -Outpatient EGD and colonoscopy. -We will switch Zofran as needed to scheduled before meals. -Patient may have some underlying GERD as well that is contributing to her epigastric pain and nausea. On Protonix. -Patient continues to struggle with advancing diet. Abdominal KUB from 01/28 showed no obstruction. Normal small bowel follow-through on 01/30 without evidence of bowel obstruction. -We will continue advanced diet as tolerated. #Constipation -Improving with resolution of SBO. #Diarrhea -Watery diarrhea is new since last admission -Stool and c. diff PCR negative. -Stable at this time #Asthma -Continue Flovent, albuterol PRN, and montelukast. #Bipolar 1 disorder -Restarted home regimen on 01/26. -Continue lamotrigine, bupropion, and venlafaxine VTE Prophylaxis - Lovenox 40mg SQ daily Diet -full liquid, advance as tolerated Admission and Anticipated Discharge Date Admission Date: January 24, 2023 Supervising Physician Co-Signing Physician Notes Attending attestation Pt seen and examined in concert with Dr. Chauhan. In agreement with the documented findings as noted in the resident documentation with any exceptions or additions as noted here. Resting in bed, frequent liquid BM following SB follow through without significant pain, bleeding reported. On examination, S1/S2 nl RRR no MCG. CTAB. Abd NT/ND BS+ve Small bowel obstruction, recurrent - GI consult appreciated - will follow up results of SB follow through. Escalate ondansetron therapy to control nausea in the setting of advancing diet. Else see resident documentation as noted. Subjective Patient was seen bedside this morning. Patient had some nausea yesterday with lunch but has been otherwise doing well. She has not been able to advance her diet fully though. She is currently n.p.o. and having a small bowel follow- through this morning. Review of Systems Review of Systems: All systems reviewed & are unremarkable except as noted in Subjective Physical Exam Constitutional: well developed; no acute distress Respiratory: normal respiratory effort, lungs clear to auscultation Cardiovascular: RRR, no murmur, no edema Gastrointestinal (Abdomen): normal bowel sounds, soft, nontender, no hepatosplenomegaly Musculoskeletal: no cyanosis or clubbing, extremities motor strength 5/5 Skin: no rashes, warm and dry Psychiatric: A+Ox3, euthymic affect Results & Data Results & Data Vital Signs (Past 12 Hours) Vital Signs Temp Pulse Resp BP Pulse Ox O2 Del Method 01/29/23 21:15 Room Air 01/29/23 21:16 36.9 C 89 18 126/88 96 Room Air Resident Activity Tracking Resident Involvement: Resident Care Provided Care Provided: Adult Hospital Medicine
[2023-01-30 07:42] LABS: Hematocrit (blood only) 36.6 % (37.0-47.0); Hemoglobin 12.2 g/dl (12.0-16.0); Mean Corpuscular Hemoglobin 30.8 pg (25.0-34.0); Mean Corpuscular Hgb Conc 33.3 g/dL (32.0-36.0); Mean Corpuscular Volume 92.4 fL (80.0-100.0); Mean Platelet Volume 9.9 fL (9.4-12.4); Platelet Count 564 K/uL (130-400); RDW Coefficient of Variation 12.4 % (11.5-14.5); RDW Standard Deviation 41.1 fL (36.4-46.3); Red Blood Count 3.96 M/uL (4.20-5.40); White Blood Count 14.64 K/ul (4.8-10.8)
[2023-01-30 07:58] LABS: Albumin Globulin Ratio 1.6 (0.9-2); Albumin Level 3.7 gm/dl (3.4-5.0); BUN Creatinine Ratio 9.1 (10-20); Bilirubin,Total 0.4 mg/dl (0.2-1.0); Calcium 9.2 mg/dl (8.6-10.3); Est GFR (African American) 112.7 ml/min; Est GFR (Non-African American) 97.3 ml/min; Globulin 2.3 gm/dl (2.5-4.0); Potassium 3.6 mmol/L (3.5-5.1)
[2023-01-30] MEDS ORDERED: methylPREDNISolone 40 MG in SYRINGE 0 ML IV ONE (08:30)
[2023-01-30] MEDS: ONDANSETRON INJ 2 MG/ML 2 ML VIAL IV PRN (12:04)
--- NOTE | 2023-01-30 13:02 | Fluoroscopy Report ---
[place] small bowel follow through CLINICAL HISTORY: History of small bowel obstruction. Nausea COMPARISON STUDY: Abdomen and pelvis CT 01/24/2023. FLUOROSCOPY TIME: 21 seconds. FLUOROSCOPY IMAGES: 10 Ka,r: 13.4 mGy FINDINGS: The patient swallowed diluted Optiray 350 without difficulty. Loom Technician images demonstrate mode rate fecal retention. Multiple pelvic phleboliths are noted. Contrast reached the cecum at 40 minutes . Therefore, no evidence for small bowel obstruction. The small bowel is normal in course and caliber . The terminal ileum is not well visualized on this study due to the overlapping bowel. IMPRESSION: Normal small bowel follow-through. No evidence for a bowel obstruction. ACT 112: Negative or not required by law. Electronically signed by: Darwin Ledesma M.D. 01/30/2023 12:59 PM
[2023-01-30] MEDS: FLUTICASONE FUROATE 200MCG 14 PUFFS/INHALER INH SCH (14:18)
[2023-01-30] MEDS: FAMOTIDINE 20 MG TAB PO SCH ×2 (14:18→20:05)
[2023-01-30] MEDS: lamoTRIgine 100 MG TAB PO SCH ×2 (14:19→20:06)
[2023-01-30] MEDS: PANTOprazole 40 MG TAB PO SCH (14:20)
--- NOTE | 2023-01-30 14:20 | Communication Note ---
Date of Service: January 30, 2023 Patient underwent an UGI with SBFT today that was negative. Discussed with Dr. Santillan who advised on the plan to proceed with outpatient endoscopic evaluation. Continue high dose corticosteroids. When diet is advanced would advise low-residue. Our office has been trying to contact patient to set up her colonoscopy/EGD for 02/07/23, however they have been unable to make contact with her.
--- NOTE | 2023-01-30 15:32 | Communication Note ---
Date of Service: January 30, 2023 Update--patient is scheduled for EGD & colonoscopy on 02/03/[address] Mendieta on the outpatient schedule. This was discussed with patient by the clinical c oordinator. Bowel prep has been faxed to pharmacy.
[2023-01-30] MEDS: ondansetron HCL 8 MG in DEXTROSE 5% 50 ML IV SCH (16:13)
[2023-01-30] MEDS: ENOXAPARIN INJ 40 MG/0.4 ML SYR SQ SCH (20:04)
[2023-01-30] MEDS: MONTELUKAST SODIUM 10 MG TABLET PO SCH (20:06)
[2023-01-31] MEDS: buPROPion XL 150 MG TABCR PO SCH (05:50)
[2023-01-31] MEDS: VENLAFAXINE HCL XR 150 MG CAPXR PO SCH (05:50)
--- NOTE | 2023-01-31 06:53 | Hospitalist Progress Note ---
Date of Service January 31, 2023 Assessment & Plan (1) SBO (small bowel obstruction): (2) Diarrhea: (3) Asthma: (4) Bipolar 1 disorder: (5) Constipation: Plan Patient is a 38-year-old female who presents to the hospital with small bowel obstruction and suspected inflammatory bowel disease. #Small bowel obstruction -Recurrent with surgically naive abdomen -Some concern for IBD previously -initially started on Solu-medrol 40mg IV BID, transition to prednisone 40 mg every morning starting on 01/29. -Will do a taper starting at 40 mg and decreasing by 5 mg every week for a total of 8 weeks of therapy per recommendations from GI. -Consult surgery and GI -Initially started NPO, IV fluids, NG tube to low intermittent suction -NG tube and IV fluids DC'd on 01/26. -Patient is having bowel movements, advancing diet slowly given the patient was just readmitted. -Outpatient EGD and colonoscopy. -We will switch Zofran as needed to scheduled before meals. -Patient may have some underlying GERD as well that is contributing to her epigastric pain and nausea. On Protonix. -Patient continues to struggle with advancing diet. Abdominal KUB from 01/28 showed no obstruction. Normal small bowel follow-through on 01/30 without evidence of bowel obstruction. -We will continue advanced diet as tolerated. #Constipation -Improving with resolution of SBO. #Diarrhea -Watery diarrhea is new since last admission -Stool and c. diff PCR negative. -Stable at this time #Asthma -Continue Flovent, albuterol PRN, and montelukast. #Bipolar 1 disorder -Restarted home regimen on 01/26. -Continue lamotrigine, bupropion, and venlafaxine VTE Prophylaxis - Lovenox 40mg SQ daily Diet -full liquid, advance as tolerated Admission and Anticipated Discharge Date Admission Date: January 24, 2023 Results & Data Results & Data Vital Signs (Past 12 Hours) Vital Signs Temp Pulse Resp BP Pulse Ox O2 Del Method 01/30/23 20:05 Room Air 01/30/23 19:44 37.1 C 79 18 112/76 97 Room Air
[2023-01-31] MEDS: ondansetron HCL 8 MG in DEXTROSE 5% 50 ML IV SCH ×2 (07:27→11:08)
[2023-01-31] MEDS: predniSONE 20 MG TAB PO SCH (07:28)
[2023-01-31] MEDS: lamoTRIgine 100 MG TAB PO SCH (07:29)
[2023-01-31] MEDS: PANTOprazole 40 MG TAB PO SCH (07:30)
[2023-01-31] MEDS: FLUTICASONE FUROATE 200MCG 14 PUFFS/INHALER INH SCH (07:31)
[2023-01-31] MEDS: FAMOTIDINE 20 MG TAB PO SCH (07:31)
--- NOTE | 2023-01-31 12:34 | Discharge Summary ---
Date of Service January 31, 2023 Admission HPI Per Admitting Provider Noreen Motta is a 38 year old female who presents to the ER with abdominal pain and diarrhea. She was recently admitted from January 18 - with the same pain and was diagnosed with a small bowel obstruction and suspected inflammatory bowel disease causing small bowel enteritis as the cause. This was treated conservatively with IV fluids, NG tube and bowel rest. She reports being good for a day. However the pain returned on Monday getting progressively worse throughout the day. Pain is all over her abdomen but mostly under rib cage. Radiates to her back. Current severity 5-6/10, 7-8/10 at worst last night. Ch aracteristic - cramping with additional stabs. No times of complete relief since it came back. Associated nausea and vomiting last night. Diarrhea is a new symptom which started last night around 10pm "like peeing out of my anus". Watery brown stool. 3-4 bowel movements since then. No urinary or respiratory symptoms. Admission Exam Per Admitting Provider Constitutional: WD/WN, vitals as above Eyes: + anicteric sclerae; normal pupil size Respiratory: normal respiratory effort, lungs clear to auscultation Cardiovascular: RRR, no murmur, no edema Gastrointestinal (Abdomen): Inspection/Auscultation: + abdomen distended and + hypoactive bowel sounds Percussion/Palpation: + abdomen tender (generalized), + guarding and abdomen soft; abdomen not rigid Musculoskeletal: no cyanosis or clubbing, extremities motor strength 5/5 Skin: no rashes, warm and dry Neurologic: moves all extremities and awake; not confused Psychiatric: A+Ox3, euthymic affect Genitourinary: no CVA tenderness Principal Diagnosis Small bowel obstruction Discharge Exam Constitutional: well-appearing, no acute distress HEENT: NCAT, no conjunctival injection CV: regular rhythm, no murmur appreciated, extremities well-perfused, no LE edema Resp: CTABL, no wheezes/rales/rhonchi appreciated, no increased work of breathing GI: soft, nondistended, nontender, BS normoactive MSK: no gross deformities appreciated Skin: warm, dry, no rash appreciated Neuro: alert, oriented, no focal neurologic deficit appreciated Discharge Data Allergies Allergy/AdvReac Type Severity Reaction Status Date / Time theophylline Allergy Severe NAUSEA Unverified 01/24/23 17:29 VOMITING hydrocodone [From Vicodin] Allergy Intermediate Nausea Unverified 01/24/23 17:29 Consultations 01/24/23 17:51 ED Decision to Admit Stat 01/24/23 17:52 Consult General Surgery Routine 01/24/23 18:35 Consult Gastroenterology Routine Ordered Studies 01/24/23 15:24 CT Abd and Pelvis [CT abd pelvis wo con] Stat 01/30/23 10:30 FL small bowel follow through Routine Chest/Abdomen X-ray 01/24/23 15:08 XR abdomen 2V w PA chest CLINICAL HISTORY: Abdominal pain, recent SBO TECHNIQUE: 2 views of the abdomen were obtained. A single view of the chest was obtained. Comparison: Comparison is made to abdomen radiograph 01/19/[address] abdomen pelvis 01/24/2023 FINDINGS: No lines and tubes are seen. The cardiomediastinal silhouette is normal. The lungs are clear. No evidence of pleural effusion or pneumothorax. The osseous structures are grossly unremarkable. Numerous gas-distended loops of small bowel are seen compatible with small bowel obstruction. A moderate amount of stool is noted within the large bowel. IMPRESSION: Redemonstration of high-grade small bowel obstruction. ACT 112: Negative or not required by law. Electronically signed by: Chace Asif M.D. 01/24/2023 5:08 PM Abdomen/Pelvis CT 01/24/23 15:24 CT abd pelvis wo con CLINICAL HISTORY: abdominal pain/distension; recent SBO TECHNIQUE: Helical axial images of the abdomen and pelvis were obtained. Automated dose lowering techniques and/or adjustment according to patient size were utilized for this exam. This exam was performed without intravenous contrast. CT DOSE: 1009.91 mGy.cm COMPARISON: Comparison is made to CT abdomen pelvis 01/18/2023 FINDINGS: Lower chest: No acute abnormality. Liver: Unremarkable. No focal lesions are seen. Gallbladder and biliary tree: The gallbladder is contracted. No intra- or extrahepatic biliary ductal dilation. Pancreas: Unremarkable, no focal lesions. Spleen: Unremarkable. Adrenals: Unremarkable. Kidneys and ureters: Unremarkable. Bladder: Limited evaluation due to underdistention. Reproductive organs: Unremarkable. Bowel: The appendix is normal. Numerous dilated loops of small bowel are seen measuring up to 45 mm in diameter. No clear transition point is seen. Lymph nodes Retroperitoneal: Subcentimeter lymph nodes are noted. Pelvic: Unremarkable. Mesenteric: Unremarkable. Peritoneum: Trace peritoneal free fluid is seen. Vessels: Unremarkable. Abdominal wall: Unremarkable. Bones: Degenerative changes in the visualized spine. IMPRESSION: Findings are compatible with small bowel obstruction without evidence of ischemia or perforation. No closed-loop obstruction is seen. ACT 112: Negative or not required by law. Electronically signed by: Chace Asif M.D. 01/24/2023 4:39 PM KUB X-Ray 01/24/23 19:41 XR KUB/Abdomen 1 view CLINICAL HISTORY: NG tube placement TECHNIQUE: 1 view of the abdomen was obtained. Comparison: Comparison is made to chest and abdomen radiograph 01/24/2023 FINDINGS: Enteric tube terminates in the stomach. The osseous structures are grossly unremarkable. Multiple distended loops of small bowel measure up to 42 mm in diameter. A moderate amount of stool is noted within the large bowel. IMPRESSION: Satisfactory position of enteric tube. Multiple dilated loops of small bowel are unchanged from prior exam compatible small bowel obstruction. ACT 112: Negative or not required by law. Electronically signed by: Chace Asif M.D. 01/25/2023 9:28 AM KUB X-Ray 01/25/23 07:00 KUB HISTORY: Small bowel obstruction SBO, NG tube placement (advanced 4cm from last XR) COMPARISON: 01/24/2023 FINDINGS: Mild retraction of the enteric tube, distal tip is directed over the [place] cardia with side-port in the distal esophagus. Persistent small bowel obstruction with dilated fluid-filled loops of small bowel measuring up to 5.9 cm, previously 5.2 cm. No renal calculi. No ureteral calculi. No pneumoperitoneum or pneumatosis. No fracture. IMPRESSION: 1. Distal tip of enteric tube projects over the proximal stomach with side port within the distal esophagus. 2. Persistent small bowel obstruction with stable to mildly progressed small bowel dilation. ACT 112: Negative or not required by law. The above report was generated using voice recognition software. It may contain grammatical, syntax or spelling errors. Electronically signed by: Sina Bailey M.D. 01/25/2023 10:53 AM KUB X-Ray 01/26/23 07:41 KUB HISTORY: Acute generalized abdominal pain with reported small bowel obstruction sbo COMPARISON: 01/25/2023 FINDINGS: Distal tip of enteric tube projects over the proximal stomach with side port within the distal esophagus. There is decreased small bowel distention compared to the prior study with small bowel loops now measuring up to approximately 4 cm, previously 5.9 cm. Air is also noted within the large bowel. Moderate colonic fecal retention. No renal calculi. No ureteral calculi. No pneumoperitoneum or pneumatosis. No fracture. IMPRESSION: 1. Distal tip of enteric tube within the stomach. 2. Resolving small bowel obstruction. ACT 112: Negative or not required by law. The above report was generated using voice recognition software. It may contain grammatical, syntax or spelling errors. Electronically signed by: Sina Bailey M.D. 01/26/2023 7:21 AM KUB X-Ray 01/28/23 15:24 KUB HISTORY: Acute abdominal pain with small bowel obstruction f/u SBO worsening pain COMPARISON: 01/26/2023 FINDINGS: Nonobstructive bowel gas pattern. Interval removal of the enteric tube. Moderate colonic fecal retention. No renal calculi. No ureteral calculi. No pneumoperitoneum or pneumatosis. Mild lumbar levoscoliosis. No fracture. IMPRESSION: Interval removal of the enteric tube. No radiographic evidence of small bowel obstruction on today's study. ACT 112: Negative or not required by law. The above report was generated using voice recognition software. It may contain grammatical, syntax or spelling errors. Electronically signed by: Sina Bailey M.D. 01/28/2023 3:58 PM Small Bowel X-Ray 01/30/23 10:30 FL small bowel follow through CLINICAL HISTORY: History of small bowel obstruction. Nausea COMPARISON STUDY: Abdomen and pelvis CT 01/24/2023. FLUOROSCOPY TIME: 21 seconds. FLUOROSCOPY IMAGES: 10 Ka,r: 13.4 mGy FINDINGS: The patient swallowed diluted Optiray 350 without difficulty. Bereavement Program Coordinator images demonstrate moderate fecal retention. Multiple pelvic phleboliths are noted. Contrast reached the cecum at 40 minutes. Therefore, no evidence for small bowel obstruction. The small bowel is normal in course and caliber. The terminal ileum is not well visualized on this study due to the overlapping bowel. IMPRESSION: Normal small bowel follow-through. No evidence for a bowel obstruction. ACT 112: Negative or not required by law. Electronically signed by: Darwin Ledesma M.D. 01/30/2023 12:59 PM Hospital Course (1) SBO (small bowel obstruction): (2) Diarrhea: (3) Asthma: (4) Bipolar 1 disorder: (5) Constipation: Plan Patient is a 38-year-old female who presents to the hospital with small bowel obstruction and suspected inflammatory bowel disease. #Small bowel obstruction -Recurrent with surgically naive abdomen -Some concern for IBD previously -initially started on Solu-medrol 40mg IV BID, transition to prednisone 40 mg every morning starting on 01/29. -Will do a taper starting at 40 mg and decreasing by 5 mg every week for a total of 8 weeks of therapy per recommendations from GI. -Consult surgery and GI -Initially started NPO, IV fluids, NG tube to low intermittent suction -NG tube and IV fluids DC'd on 01/26. -Patient is having bowel movements, was able to successfully advance diet. -Outpatient EGD and colonoscopy are scheduled on 02/03. -Zofran before meals, will continue until colonoscopy. -Normal small bowel follow-through on 01/30 without evidence of bowel obstruction. Able to advance diet significantly on 01/31 -While admitted on Protonix and famotidine, continue as outpatient and follow-up with PCP and GI. . #Constipation -Improved with resolution of SBO. #Diarrhea -Watery diarrhea is new since last admission. Resolved by time of discharge. -Stool and c. diff PCR negative. #Asthma -Continue Flovent, albuterol PRN, and montelukast. #Bipolar 1 disorder -Restarted home regimen on 01/26. -Continue lamotrigine, bupropion, and venlafaxine Total Time Total Time Spent Total Time Spent (In Minutes): Please refer to attendings attestation Discharge Plan Discharge Items Patient Disposition: Home - Self-Care Reason For Visit: SMALL BOWEL OBSTRUCTION Discharge Diagnosis: Small Bowel Obstruciton Activity: Resume your previous activity Non-emergency contact: Primary Care Provider and Homeland Security Program Specialist Call non-emergency contact if: you have any medication questions, your pain is unusual for you and your temperature is above 101.5 Follow-up/Referrals: David Mendieta DO [Physician] - (EGD & colonoscopy scheduled on 02/03/2023) Maryan,Jerry, DO [Primary Care Provider] - Diet: Other - See Diet Comment Diet Comment: Low-residue Addtl Attending Provider Instructions: You were admitted to the hospital for small bowel obstruction. You were treated with bowel rest and steroids. You were able to advance her diet as tolerated and the small bowel obstruction resolved. However, you are still prone for this to recur. He will need to follow-up with gastroenterology to ensure that this does not occur again. A discharge summary will be sent to your primary care physician to ensure continuity of care. Please bring this discharge summary with you to your next office appointment so that your provider can review it at that time. Follow-up appointments: * You have a scheduled EGD and colonoscopy on 02/03/[address] Mendieta. A prescription for bowel prep was ordered * Follow-up with your PCP within 2 weeks. * Keep all your follow-up appointments as already scheduled. If you cannot make an appointment, notify your provider. Medications: Your medication list has been reviewed and reconciled upon discharge to ensure accuracy and continuity of care. An updated list of all your medications is included with your hospital discharge paperwork. Please review this list closely, and make note of any changes. * Bowel prep was faxed to pharmacy that you should take prior to the EGD and colonoscopy on 02/03/2023. This was sent in by gastroenterology. * We sent a new medication called prednisone to your pharmacy. Take prednisone 40 mg for the next 4 days. After 4 days you will take prednisone 35 mg for 7 days. Then prednisone 30 mg for 7 days. Then prednisone 25 mg for 7 days. Then prednisone 20 mg for 7 days. Then prednisone 15 mg for 7 days. Then prednisone 10 mg for 7 days. Then prednisone 5 mg for 7 days. * We sent a new medication called famotidine to your pharmacy. Take famotidine 20 mg twice a day. * We sent in a new medication called Protonix to your pharmacy. Take Protonix 40 mg once a day. * We sent in a new medication called ondansetron. Take ondansetron 8mg three times a day (before meals) for the next 3 days. * If you have any issues filling these prescriptions, please call [phone] and ask to leave a message for Dr. Chauhan. * Take your medications as instructed; do not skip a dose of your medicines. Make sure all of your doctors know every medicine you are taking (including pykp-ycp-nehwuon medicines, vitamins, and supplements). Call your primary care provider before taking any new medicines (including over- the-counter medicine s, vitamins, and supplements), because some of these may interact with your current medications, or may make your symptoms worse. Tell your primary care provider if you cannot afford your medications. CONTACT YOUR PRIMARY CARE PROVIDER if you experience any of the following: * Worsening of symptoms * Fever, chills, or fatigue * Difficulty following your treatment plan, or difficulty taking medications CALL 911 OR GO TO THE EMERGENCY DEPARTMENT if you experience any of the following: * Sudden, severe abdominal pain or nausea/vomiting * Severe chest pain, or chest pain that radiates (moves) to your jaw or arm * Sudden, severe shortness of breath or difficulty breathing Thank you for allowing us to participate in your care. Pending Studies at Discharge: No Stand-Alone Forms: My [facility] [employer], Smoking Cessation Medications and DC Order Prescriptions: New famotidine 20 mg Tablet 20 mg PO BID 30 Days Qty: 60 0RF pantoprazole 40 mg Tablet,Delayed Release (Dr/Ec) 40 mg PO QAM Qty: 30 0RF ondansetron HCl 8 mg tablet 8 mg PO Q8H 3 Days Qty: 9 0RF Rx Instructions: prior to meals. prednisone 10 mg tablet 10 mg PO DIRECTED Qty: 114 0RF Rx Instructions: prednisone 10 mg: take 4 tablets (40 mg) for 4 days; Then 3.5 tablets (35 mg) for 7 days ; then decrease by 0.5 tablet every 7 days until finished famotidine 20 mg tablet 20 mg PO BID 30 Days Qty: 60 0RF ondansetron 8 mg tablet,disintegrating 8 mg PO Q8H 3 Days Qty: 9 0RF pantoprazole 40 mg tablet,delayed release (DR/EC) 40 mg PO DAILY 30 Days Qty: 30 0RF prednisone 10 mg tablet 10 mg PO DIRECTED Qty: 114 0RF Rx Instructions: Take 4 tablets (40 mg) for 4 days. Then take 3.5 tablets (35 mg) for 7 days. Then decrease the dose by 0.5 tablet every 7 days until complete (30, 25, 20, 15, 10, 5) Continued Suflave 178.7-7.3-0.5 gram recon soln See Rx Instructions PO .COMPLEX Qty: 2 0RF Rx Instructions: orally; TAKE FIRST DOSE AT 6 PM AND SECOND DOSE 6 HOURS PRIOR TO PROCEDURE BIN: [id number] PCN: [id number] GROUP: [id number] ondansetron 4 mg tablet,disintegrating 4 mg PO Q8H PRN (Reason: nausea and vomiting) Qty: 30 0RF venlafaxine 150 mg capsule,extended release 24hr 150 mg PO QAM montelukast 10 mg tablet 10 mg PO HS albuterol sulfate 90 mcg/actuation HFA aerosol inhaler 2 puff INHALATION Q6H PRN (Reason: SOB/Wheezing) Flovent Diskus 250 mcg/actuation blister with device 1 inh INHALATION BID bupropion HCl 150 mg tablet extended release 24 hr 150 mg PO QAM lamotrigine 50 mg tablet extended release 24hr See Rx Instructions .ROUTE .COMPLEX Rx Instructions: take 50mg by mouth every morning ALONG WITH 100MG IN THE MORNING TOTAL 150MG lamotrigine 100 mg tablet extended release 24hr See Rx Instructions .ROUTE .COMPLEX Rx Instructions: Take 100mg w/50mg tablet by mouth to equal 150mg in the morning and then take 100mg by mouth at bedtime Discontinued prednisone 20 mg tablet 40 mg PO DAILY 30 Days Qty: 60 0RF Discharge Orders: Discharge Order (Routine); Ordered 01/31/23 Ordered By: Shan Chauhan Admission Data Admit Date/Time: 01/24/23 18:00 Attending Provider: Baudilio Martínez Admit Provider: Joss Milan Primary Care Provider: eJrry Steinberg Other Providers: Manuel Santillan ; Jsos Milan ; Lupillo Caldera ; Esvin Vernon Other Interventions: Discharge Summary Assessment (RN) Last Done: 01/31/23 10:56 Supervising Physician Co-Signing Physician Notes Attending attestation Pt seen and examined in concert with Dr. Chauhan. In agreement with the documented findings as noted in the resident documentation with any exceptions or additions as noted here. Feeling much better today - no abdominal discofmort, ongoing loose bowel movements. No nausea with oral intake and tolerating with meal ondansetron well. On examination, S1/S2 nl RRR no MCG. CTAB. Abd NT/ND BS+ve Small bowel obstruction - ongoing evaluation with endoscopy upcoming - continue ondansetron with meals as needed and monitor bowels for changes. Continue prednisone taper with concern for IBD. Else see resident documentation as noted. Total attending physician time spent with this patient's care on the day of discharge: 35 minutes. Resident Activity Tracking Resident Involvement: Resident Care Provided Care Provided: Adult Hospital Medicine
== END 2023-01-31 16:04 | disposition home or self-care (01) | DRG 390 ==
LOC: ED 14:32 → 3N 18:00 → SUATTDRO 18:00 → 3N 21:38